=== PATIENT | female | born 1930 | race Caucasian/White ===

== ENCOUNTER 2017-10-03 02:12 | Inpatient (IN) | payer OTHER ==
[~2017-10-03] VITALS: Ht 162.6 cm; Wt 68.0 kg
[~2017-10-03 02:12] MED LIST: MIRALAX17 GM PO; VICODIN 5-3001 EACH PO
--- NOTE | 2017-10-03 02:53 | ED INFLUENZA/URI COMPLAINT ---
History of Present Illness General Chief Complaint: Upper Respiratory Sx/Fever Stated Complaint: COUGH AND CONGESTION Source: patient, family Exam Limitations: poor historian Vital Signs & Intake/Output Vital Signs & Intake/Output Vital Signs Date Time Temp Pulse Resp B/P B/P Pulse O2 O2 Flow FiO2 Mean Ox Delivery Rate 10/07 1427 98.5 68 20 142/62 93 Room Air 10/07 0939 66 135/64 10/07 0939 66 135/64 ED Intake and Output 10/08 0000 10/07 1200 Intake Total 800 270 Output Total Balance 800 270 Intake, IV 270 Intake, Oral 800 Number Bowel Movements Allergies Coded Allergies: NO KNOWN ALLERGIES (07/17/12) Reconcile Medications Amlodipine (Norvasc) 2.5 MG TABLET 1 TAB PO QPM BP (Reported) Amlodipine Besylate (Norvasc) 5 MG TABLET 1 TAB PO QAM HTN (Reported) Amoxicillin 875 MG TABLET 1 TAB PO BID pneumonia TAKE DIRECTED Atorvastatin Calcium (Lipitor) 10 MG TABLET 1 TAB PO DAILY HLD (Reported) Azithromycin (Zithromax) 500 MG TABLET 1 TAB PO DAILY pneumonia TAKE DIRECTED Levothyroxine Sodium (Synthroid) 50 MCG TABLET 1 TAB PO DAILY HYPOTHYROIDISM (Reported) Nadolol (Corgard) 20 MG TABLET 20 MG PO BID HTN (Reported) Rabeprazole Sodium (Aciphex) 20 MG TABLET.DR 1 TAB PO Wednesday GERD (Reported) Warfarin Sodium (Coumadin) 2 MG TABLET 1 TAB PO DAILY AFIB (Reported) Please hold for today and resume once INR is repeated. Dosed per INR Triage Note: 87YO FEMAEL TO TRIAGE W/CO CONGESTION. STATES SHE IS ON ANTIBIOTIC AND DECONGESTANT SINCE 09/30 BUT IS UNABLE TO BRING ANYTHING UP. Triage Nurses Notes Reviewed? yes HPI: Patient presents for evaluation of cough and chest congestion. The patient herself is deferring her history to her son because she states she "can't breathe" and "can't talk". According to the patient's son, she began having symptoms beginning at about Wednesday and subsequently saw her primary care physician who diagnosed her with a virus and suggested symptomatic care. She didn't saw him again on because of persistence of symptoms. She called him again on Wednesday and was prescribed cefuroxime. Patient states that she still feels congestion in the chest but isn't able to bring any phlegm up. She states she has had a low-grade fever but denies associated chest pain or leg swelling/pain. Past History Travel History Traveled to [place] past 21 day No Medical History Any Pertinent Medical History? see below for history Neurological: NONE EENT: NONE Cardiovascular: AFIB, hypertension Respiratory: NONE Gastrointestinal: NONE Hepatic: NONE Renal: NONE Musculoskeletal: SPINAL STENOSIS Psychiatric: NONE Endocrine: THYROID Blood Disorders: NONE Cancer(s): NONE Pneumonia Vaccine: 01/31/98 Influenza Vaccine: 02/05/13 Surgical History Surgical History: N Psychosocial History Who do you live with Family Services at Home None What is your primary language Kiswahili Tobacco Use: Never used Family History Hx Contributory? No Review of Systems Review of Systems Constitutional: Reports: see HPI. EENTM: Reports: no symptoms. Respiratory: Reports: see HPI. Cardiovascular: Reports: no symptoms. GI: Reports: no symptoms. Genitourinary: Reports: no symptoms. Musculoskeletal: Reports: no symptoms. Skin: Reports: no symptoms. Neurological/Psychological: Reports: no symptoms. Hematologic/Endocrine: Reports: no symptoms. Immunologic/Allergic: Reports: no symptoms. All Other Systems: Reviewed and Negative Physical Exam Physical Exam Ears, Nose, Throat: SEE BELOW Comments: Gen.: Well-nourished, well-developed, no acute respiratory distress. Head: Normocephalic, atraumatic. Eyes: Normal inspection bilaterally Ears: Normal inspection bilaterally Nose: Normal inspection Throat/mouth : Moist mucosa, no oropharyngeal erythema or exudates Neck: Supple, full range of motion, no goiter, no stridor Heart: Regular rate and rhythm, no murmurs rubs or gallops Lungs: Clear to auscultation bilaterally with normal air entry Chest: Nontender Back: Normal range of motion Abdomen: Soft, nontender, nondistended, normal bowel sounds Extremities: Normal range of motion grossly, equal radial pulses, no cyanosis clubbing or edema Neurologic: Cranial nerves grossly intact, speech is clear Skin: warm and dry Psychiatric: Calm, cooperative, no apparent delusions or hallucinations Core Measures Sepsis Present: No Sepsis Focused Exam Completed? No Progress Differential Diagnosis: influenza, pneumonia, CHF,COPD,EFFUSION,SEPSIS Plan of Care: Orders Procedure Date/time Status Discharge Patient 10/07 UNK Active Diagnostic Imaging: Discussed w/RAD: Radiology Read. CXR Impression: PATIENT: CANDELARIA ALTMAN PRESENT AGE: 87 PATIENT ACCOUNT NO: [id number] : 31 LOCATION: [facility] ORDERING PHYSICIAN: Rom Lawrence MD SERVICE DATE: 10/03/17 EXAM TYPE: RAD - XRY-CHEST XRAY, TWO VIEWS EXAMINATION: XR CHEST CLINICAL INFORMATION: Cough, congestion COMPARISON: 08/10/2016 TECHNIQUE: 2 views of the chest were obtained. FINDINGS: Lung volumes are symmetric. There is mild patchy opacity in the mid to basilar right lung laterally. The left lung appears clear. No evidence of pneumothorax, pleural effusion, or pulmonary edema. The cardiomediastinal contour is unremarkable. Osteopenia is noted. IMPRESSION: Mild patchy opacity in the mid to basilar right lung, suggesting developing pneumonia in the proper clinical setting. Radiographic followup after treatment/resolution of symptoms is recommended. DICTATED BY: Joby Rothman MD DATE/TIME DICTATED:10/03/17310 OFFICE ADMINISTRATION:LIILAM DATE/TIME TRANSCRIBED:10/03/17310 CONFIDENTIAL, DO NOT COPY WITHOUT APPROPRIATE AUTHORIZATION. <Electronically signed in Other Vendor System> SIGNED BY: Joby Rothman MD 10/03/17317 Initial ED EKG: none Comments: 10/03/2017 4:16:35 AM I have updated Candelaria and her son on test results. I will order IV antibiotics for her pneumonia. She repeatedly complains of feeling phlegm in the throat that she can't "bring up". I will order a nebulizer treatment to see if we can't loosen up the secretions somewhat. Departure Departure Disposition: STILL A PATIENT Condition: Stable Clinical Impression Primary Impression: Pneumonia Qualifiers: Pneumonia type: due to unspecified organism Laterality: right Lung location: middle lobe of lung Qualified Code: J18.1 - Lobar pneumonia, unspecified organism Referrals: Nikhil MATAMOROS,Aaron Holloway (PCP/Family) Departure Forms: Customer Survey General Discharge Information Prescriptions: Current Visit Scripts Azithromycin (Zithromax) 1 TAB PO DAILY #2 TAB TAKE DIRECTED Amoxicillin 1 TAB PO BID #4 TAB TAKE DIRECTED Admission Note Spoke With: Evens Horton MD Documentation of Exam: Documentation of any treatments & extenuating circumstances including Concerns Regarding Discharge (functional status, medication knowledge or non-compliance, living conditions, etc.) that warrant an admission rather than observation: Patient presents complaining of difficulty breathing secondary to phlegm production. She is currently taking an antibiotic prescribed by her primary care physician for clinical impression of bronchitis. Patient's chest x-ray confirms a right sided pneumonia. Given this patient's advanced age, elevated white blood cell count and clinical signs and symptoms I feel she requires hospitalization for more aggressive management with IV antibiotics. I feel she would likely return in worse clinical condition if continued outpatient management were attempted. While in the hospital a patient should have serial chest x-rays to monitor for clearing of her pneumonia. Oxygen should be supplemented if necessary. Patient does not respond to initial treatment then infectious disease or pulmonary consultation should be considered. Considering this patient's advanced age and medical comorbidities, her treatment may very well be prolonged and complicated. Given the above I feel the patient will require multiple day hospitalization. 10/03/17 0308: Anion Gap 9, Estimated GFR > 60, BUN/Creatinine Ratio 15.0, Glucose 109 H, Lactic Acid Pending, Calcium 8.4, Troponin I < 0.01, [id number] Pept 1850 H, Vitamin B12 Pending, Folate Pending, PT 24.7 H, INR 2.25 H, CBC w Diff NO MAN DIFF REQ, RBC 2.40 L, MCV 104.0 H, MCH 35.9 H, MCHC 34.5, RDW 14.7 H, MPV 7.8, Gran % 79.9 H, Lymphocytes % 9.2 L, Monocytes % 10.3 H, Eosinophils % 0.5, Basophils % 0.1, Absolute Granulocytes 8.8 H, Absolute Lymphocytes 1.0 L, Absolute Monocytes 1.1 H, Absolute Eosinophils 0.1, Absolute Basophils 0 Microbiology 10/03 0550 LOWER RESP: Respiratory Culture - COLB 10/03 0450 LOWER RESP: Gram Stain - COLB 10/03 450 BLOOD: Blood Culture - CAN Cancelled: DUPLICATE 10/03 450 BLOOD: Blood Culture - CAN Cancelled: DUPLICATE 10/04 439 BLOOD: Blood Culture - RECD 10/03 429 BLOOD: Blood Culture - RECD Diagnostic Imaging: Discussed w/RAD: Radiology Read. CXR Impression: PATIENT: CANDELARIA ALTMAN PRESENT AGE: 87 PATIENT ACCOUNT NO: [id number] : 31 LOCATION: [facility] ORDERING PHYSICIAN: Rom Lawrence MD SERVICE DATE: 10/03/17 EXAM TYPE: RAD - XRY-CHEST XRAY, TWO VIEWS EXAMINATION: XR CHEST CLINICAL INFORMATION: Cough, congestion COMPARISON: 08/10/2016 TECHNIQUE: 2 views of the chest were obtained. FINDINGS: Lung volumes are symmetric. There is mild patchy opacity in the mid to basilar right lung laterally. The left lung appears clear. No evidence of pneumothorax, pleural effusion, or pulmonary edema. The cardiomediastinal contour is unremarkable. Osteopenia is noted. IMPRESSION: Mild patchy opacity in the mid to basilar right lung, suggesting developing pneumonia in the proper clinical setting. Radiographic followup after treatment/resolution of symptoms is recommended. DICTATED BY: Joby Rothman MD DATE/TIME DICTATED:10/03/17310 OFFICE ADMINISTRATION:LILIAM DATE/TIME TRANSCRIBED:10/03/17310 CONFIDENTIAL, DO NOT COPY WITHOUT APPROPRIATE AUTHORIZATION. <Electronically signed in Other Vendor System> SIGNED BY: Joby Rothman MD 10/03/17317 Comments: 10/03/2017 4:16:35 AM I have updated Candelaria and her son on test results. I will order IV antibiotics for her pneumonia. She repeatedly complains of feeling phlegm in the throat that she can't "bring up". I will order a nebulizer treatment to see if we can't loosen up the secretions somewhat. Departure Departure Disposition: STILL A PATIENT Condition: Stable Clinical Impression Primary Impression: Pneumonia Qualifiers: Pneumonia type: due to unspecified organism Laterality: right Lung location: middle lobe of lung Qualified Code: J18.1 - Lobar pneumonia, unspecified organism Referrals: Nikhil MATAMOROS,Aaron Holloway (PCP/Family) Departure Forms: Customer Survey General Discharge Information Admission Note Spoke With: Evens Horton MD Documentation of Exam: Documentation of any treatments & extenuating circumstances including Concerns Regarding Discharge (functional status, medication knowledge or non-compliance, living conditions, etc.) that warrant an admission rather than observation: Patient presents complaining of difficulty breathing secondary to phlegm production. She is currently taking an antibiotic prescribed by her primary care physician for clinical impression of bronchitis. Patient's chest x-ray confirms a right sided pneumonia. Given this patient's advanced age, elevated white blood cell count and clinical signs and symptoms I feel she requires hospitalization for more aggressive management with IV antibiotics. I feel she would likely return in worse clinical condition if continued outpatient management were attempted. While in the hospital a patient should have serial chest x-rays to monitor for clearing of her pneumonia. Oxygen should be supplemented if necessary. Patient does not respond to initial treatment then infectious disease or pulmonary consultation should be considered. Considering this patient's advanced age and medical comorbidities, her treatment may very well be prolonged and complicated. Given the above I feel the patient will require multiple day hospitalization.
--- NOTE | 2017-10-03 03:18 | RADIOLOGY REPORT ---
EXAMINATION: XR CHEST CLINICAL INFORMATION: Cough, congestion COMPARISON: 08/10/2016 TECHNIQUE: 2 views of the chest were obtained. FINDINGS: Lung volumes are symmetric. There is mild patchy opacity in the mid to basilar right lung laterally. The left lung appears clear. No evidence of pneumothorax, pleural effusion, or pulmonary edema. The cardiomediastinal contour is unremarkable. Osteopenia is noted. IMPRESSION: Mild patchy opacity in the mid to basilar right lung, suggesting developing pneumonia in the proper clinical setting. Radiographic followup after treatment/resolution of symptoms is recommended.
[2017-10-03 03:22] LABS: ABSOLUTE BASOPHIL COUNT 0 /CUMM (0.0-0.2); ABSOLUTE EOSINOPHIL COUNT 0.1 /CUMM (0.0-0.7); ABSOLUTE GRANULOCYTE CT 8.8 /CUMM (1.4-6.5); ABSOLUTE MONOCYTE COUNT 1.1 /CUMM (0.10-0.60); BASOPHIL % 0.1 % (0.0-2.0); EOSINOPHIL % 0.5 % (0-5); GRANULOCYTE % 79.9 % (42.2-75.2); MEAN CORPUSCULAR HGB 35.9 PG (27.0-31.0); MEAN CORPUSCULAR HGB CONC 34.5 G/DL (33.0-37.0); MEAN PLATELET VOLUME 7.8 FL (7.4-10.4); PLATELET COUNT 263 /CUMM (130-400); RBC DISTRIBUTION WIDTH 14.7 % (11.5-14.5)
[2017-10-03 03:46] LABS: WHITE BLOOD CELL COUNT 11.1 /CUMM (4.8-10.8)
--- NOTE | 2017-10-03 05:14 | History & Physical ---
[place] MATAMOROS,Edgar 10/03/17 0513: General Information and HPI History of Present Illness: Ms. Avila is an 87-year-old female with past medical history of atrial fibrillation on warfarin, hypertension, spinal stenosis, hypothyroidism, hyperlipidemia, GERD who presents with congestion. Patient has a cough for the past week and the last few days it has become productive. She went to her primary care doctor, Dr. Poole, and received cough medication. She then received cefuroxime on Wednesday because of worsening symptoms. She took 2 doses. She then decided to come into the emergency room because her congestion was worsening and she could not breathe because of it. She further describes shortness of breath, tearing, sore throat, and fatigue. She denies any headache , chest pain, abdominal pain, nausea, vomiting, diarrhea, dysuria, rash, or sick contacts. Allergies/Medications Allergies: Coded Allergies: NO KNOWN ALLERGIES (07/17/12) Home Med list Amlodipine (Norvasc) 2.5 MG TABLET 1 TAB PO QPM BP (Reported) Amlodipine Besylate (Norvasc) 5 MG TABLET 1 TAB PO QAM HTN (Reported) Atorvastatin Calcium (Lipitor) 10 MG TABLET 1 TAB PO DAILY HLD (Reported) Levothyroxine Sodium (Synthroid) 50 MCG TABLET 1 TAB PO DAILY HYPOTHYROIDISM (Reported) Nadolol (Corgard) 20 MG TABLET 20 MG PO BID HTN (Reported) Rabeprazole Sodium (Aciphex) 20 MG TABLET.DR 1 TAB PO Wednesday GERD (Reported) Warfarin Sodium (Coumadin) 2 MG TABLET 1 TAB PO DAILY AFIB (Reported) Dosed per INR Past History Travel History Traveled to [place] past 21 day No Medical History Neurological: NONE EENT: NONE Cardiovascular: AFIB, hypertension Respiratory: NONE Gastrointestinal: NONE Hepatic: NONE Renal: NONE Musculoskeletal: SPINAL STENOSIS Psychiatric: NONE Endocrine: THYROID Blood Disorders: NONE Cancer(s): NONE Pneumonia Vaccine: 01/31/98 Influenza Vaccine: 02/05/13 Surgical History Surgical History: N Past Family/Social History Psychosocial History Services at Home: None Review of Systems Review of Systems Constitutional: Reports: see HPI. EENTM: Reports: no symptoms. Cardiovascular: Reports: no symptoms. Respiratory: Reports: see HPI. GI: Reports: no symptoms. Genitourinary: Reports: no symptoms. Musculoskeletal: Reports: no symptoms. Skin: Reports: no symptoms. Neurological/Psychological: Reports: no symptoms. Hematologic/Endocrine: Reports: no symptoms. Immunologic/Allergic: Reports: no symptoms. All Other Systems: Reviewed and Negative Exam & Diagnostic Data Last 24 Hrs of Vital Signs/I&O Vital Signs Date Time Temp Pulse Resp B/P B/P Pulse O2 O2 Flow FiO2 Mean Ox Delivery Rate 10/03 0438 95 10/03 0218 98.6 75 28 143/78 94 Room Air Room Air Intake & Output 10/03 0800 10/03 0000 10/02 1600 Intake Total 0 Output Total Balance 0 Intake, Oral 0 Patient 68.039 kg Weight Physical Exam General Appearance Alert, Oriented X3, Cooperative, No Acute Distress Skin No Rashes Sepsis Skin Exam (color): Normal for Ethnicity HEENT Atraumatic, PERRLA, EOMI Cardiovascular Regular Rate, Normal S1, Normal S2 Lungs mild crackles Abdomen Normal Bowel Sounds, Soft, No Tenderness Neurological Normal Speech Extremities No Edema, Normal Pulses, No Tenderness/Swelling Sepsis Peripheral Pulse Location: Radial Sepsis Peripheral Pulse Exam: Normal Sepsis Cap Refill Exam: <2 Sec Last 24 Hrs of Labs/Parish: Laboratory Tests 10/03/17 0308: Anion Gap 9, Estimated GFR > 60, BUN/Creatinine Ratio 15.0, Glucose 109 H, Calcium 8.4, Troponin I < 0.01, [id number] Pept 1850 H, PT 24.7 H, INR 2.25 H, CBC w Diff NO MAN DIFF REQ, RBC 2.40 L, MCV 104.0 H, MCH 35.9 H, MCHC 34.5, RDW 14.7 H, MPV 7.8, Gran % 79.9 H, Lymphocytes % 9.2 L, Monocytes % 10.3 H, Eosinophils % 0.5, Basophils % 0.1, Absolute Granulocytes 8.8 H, Absolute Lymphocytes 1.0 L, Absolute Monocytes 1.1 H, Absolute Eosinophils 0.1 , Absolute Basophils 0 Microbiology 10/03 450 BLOOD: Blood Culture - CAN Cancelled: DUPLICATE 10/03 450 BLOOD: Blood Culture - CAN Cancelled: DUPLICATE 10/04 439 BLOOD: Blood Culture - RECD 10/03 429 BLOOD: Blood Culture - RECD Assessment/Plan Assessment: Ms. Avila is an 87-year-old female with past medical history of atrial fibrillation on warfarin, hypertension, spinal stenosis, hypothyroidism, hyperlipidemia, GERD who presents with congestion. On presentation, vital signs were T 98.6, HR 75, RR 28, BP 143/78, saturating 4% room air. Labs are significant for white blood cell count 11.1, globin 8.6, MCV 104.0, glucose 101, troponin less than 0.01, BNP 1850. Chest x-ray revealed mild patchy opacity in the mid to basilar right lung suggesting pneumonia. She will be admitted to general medicine and treated for the following problems: 1. Sepsis secondary to community-acquired pneumonia 2. Macrocytic anemia #Community-acquired pneumonia: Patient presents with signs and symptoms of pneumonia. She has tachypnea and leukocytosis, meeting 2/4 SIRS criteria qualifying for sepsis. Quick SOFA score was 1 at admission, CURB-65 score 1. -Ceftriaxone and azithromycin -Guaifenesin -Lactic acid -Respiratory culture -Urinary antigens #Macrocytic anemia: Unclear etiology. Potentially vitamin deficient. -B12 and folate #Chronic medical problems: -INR daily, dose warfarin -Continue other home medications DVT prophylaxis with warfarin Heart healthy diet Full code As Ranked By This Provider Problem List: 1. Community acquired pneumonia Core Measures/Misc (01/17) Acute Coronary Syndrome ACS Diagnosis: No Congestive Heart Failure Congestive Heart Failure Diagnosis No Cerebrovascular Accident CVA/TIA Diagnosis: No VTE (View Protocol) VTE Risk Factors Age>40 No Mechanical VTE Prophylaxis d/t N/A MechProphylax Ordered No VTE Pharm Prophylaxis d/t NA PharmProphylax ordered Sepsis (View protocol) Sepsis Present: Yes If YES complete Sepsis Event Note If YES complete Sepsis Event Note Evens Horton MD 10/03/17 0611: Core Measures/Misc (01/17) Sepsis (View protocol) If YES complete Sepsis Event Note If YES complete Sepsis Event Note Attending MD Review Statement Attending Statement Attending MD Statement: examined this patient, discuss w/resident/PA/SOLAR ELECTRIC PRACTITIONER, agreed w/resident/PA/SOLAR ELECTRIC PRACTITIONER, discussed with family, discussed with nursing Attending Assessment/Plan: Ms. Avila is an 87-year-old active female with past medical history of atrial fibrillation on warfarin, hypertension, spinal stenosis, hypothyroidism, hyperlipidemia, GERD who presents with congestion. Comes in with worsening symptoms after conservative management by PCP for ?viral URI. CXR shows infiltrates suggestive of pneumonia. Treating as community acquired pneumonia. FU on INR levels. Needs chest physical therapy and inhalers to relieve congestion. Also on expectorants. Lalo Pompa 10/03/17 0613: Core Measures/Misc (01/17) Sepsis (View protocol) If YES complete Sepsis Event Note If YES complete Sepsis Event Note Resident Review Statement Resident Statement: examined this patient, discussed with cad intern, agreed with cad intern, discussed with family, reviewed EMR data (avail), reviewed images, amended to note Other Findings: Mrs. Avila is an 87 years old lady with past medical history of hypertension hyperlipidemia and atrial fibrillation on Coumadin who is presenting with one- week history of cough for which she visited her primary care physician initially given cough suppression medication but then went back on Wednesday and be started on antibiotic but continued to have phlegm predominantly blocking her breathing channels for which she decided to come to the ER today. Patient has been having low-grade fever her highest recorded temp 98.4 she denies any sick contacts she is coughing but not able to expectorate. She denies any chest pain, shortness of breath, dizziness, lightheadedness, nausea or vomiting. She has no sick contacts. She reports to has been stressed lately. Her fell and had a brain hemorrage admitted to [facility] for 5 weeks currently at a [facility] in [facility]. Vital signs on arrival afebrile 98.6, heart rate of 75 respiration 28 blood pressure 143/78 and saturating 98% on room air Physical examination: Seated comfortably on the bed not in acute distress alert and oriented to time place and person very plesant with the son by bedside. Chest: Bilateral bronchial breath sounds more prominent in the bases no crackles appreciated CVS: Regular rate and rhythm normal S1-S2 no murmurs Abdomen: Obese abdomen moving with respiration no palpable masses Extremities: No cyanosis edema or clubbing Labs: Mild leukocytosis of 11,100 with 79.9% granulocytes anemia with H&H H&H 8.6 and 25 with MCV of 104, increased proBNP of 1850 with therapeutic INR of 2.25 CXR: Mild patchy opacities in the immediate tube bacillar right lung Assessment and plan 87 years old presenting with cough congestion low-grade fever and on presentation found to have leukocytosis with left shift and x-ray evidence of pneumonia. The patient reports improvement in respiratory symptoms after nebulization. She is on Coumadin for A. fib and is within therapeutic range. Community-acquired pneumonia Atrial fibrillation on Coumadin Hypertension Hyperlipidemia Admitted the patient to general medicine floor Vitals every shift IV ceftriaxone 1 g daily and IV azithromycin 500 mg daily Total respiratory care Daily INR and dose Coumadin to maintain therapeutic range Continue blood pressure medication nadolol 20 mg daily and Norvasc 5 mg daily Hypothyroidism continue with Synthyroid 50 g daily, check TSH and free T4 Patient is full code Coumadin for DVT prophylaxis Hypothyroidism continue with Synthyroid 50 g daily, check TSH and free T4 Patient is full code Coumadin for DVT prophylaxis
[2017-10-03 05:25] LABS: PT 24.7 SEC (9.4-12.5)
[2017-10-03] MEDS ORDERED: SYNTHROID50 MCG PO (05:47)
[2017-10-03] MEDS ORDERED: LIPITOR10 M1 PO (05:47)
[2017-10-03] MEDS ORDERED: NORVASC5 M1 PO (05:48)
[2017-10-03] MEDS ORDERED: CORGARD20 M1 PO (05:49)
[2017-10-03] MEDS ORDERED: COUMADIN2 M1 PO (05:51)
[2017-10-03] MEDS ORDERED: ACIPHEX20 M1 PO (06:10)
--- NOTE | 2017-10-03 12:15 | PN- Att Addend ---
Attending Addendum Attending Brief Note Patient seen and examined. This is an 87-year-old female with past medical history of atrial fibrillation on Coumadin, chronic macrocytic anemia is here with a community-acquired pneumonia having failed outpatient oral treatment by her PCP Dr. Tejeda. She had a white count of 11,000, cough with sputum and a right basal opacity on chest x-ray. We are treating her with IV antibiotics. Dosing the Coumadin to keep the INR therapeutic and will closely follow on the results. She has this chronic macrocytic anemia, she's even had a bone marrow biopsy done in the past and says she is to follow that the cancer center. Will need collateral information about the same.
--- NOTE | 2017-10-03 12:15 | Admission Certification ---
Admission Certification Certification Statement - As attending physician, I certify that at the time of - admission, based on clinical presentation, severity of - symptoms, need for further diagnostic testing and - therapeutic interventions, and risk of adverse outcomes - without in-hospital treatment, in my clinical assessment, - this patient requires an acute hospital stay for a minimum - of two nights or longer. I have also considered psychsocial - factors such as support system, advanced age, financial - issues, cognitive issues, and failed out-patient treatments, - past re-admission history, safety of patient, and lack of - compliance as applicable. Specific rationale supporting this admission is: Community acquired pneumonia having failed outpatient oral antibiotics.
[2017-10-03] MEDS ORDERED: NORVASC2.5 M1 PO (13:14)
[2017-10-03 16:54] VITALS: BP 120/62
[2017-10-03 22:00] VITALS: BP 130/51
[2017-10-04 07:00] VITALS: BP 135/58
--- NOTE | 2017-10-04 08:17 | PN- Housestaff ---
See Addendum Subjective Follow-up For: communtiy acquired pnuemonia Complaints: no complaints Subjective: i have seen and examined the patient today morning, she seems ot be doing good, no new complaints. Review of Systems Constitutional: Reports: see HPI. Objective Last 24 Hrs of Vital Signs/I&O Vital Signs Date Time Temp Pulse Resp B/P B/P Pulse O2 O2 Flow FiO2 Mean Ox Delivery Rate 10/04 0435 Room Air 10/04 0000 Room Air 10/03 2200 98.4 68 20 130/51 93 Room Air 10/03 1933 93 Room Air 10/03 1929 Room Air 10/03 1814 92 138/78 10/03 1654 99.9 92 20 120/62 94 Room Air 10/03 1634 94 Room Air 10/03 1609 94 10/03 1546 99.0 Intake & Output 10/04 1600 10/04 0800 10/04 0000 Intake Total Output Total Balance Patient 68.039 kg Weight Weight Reported by Patient Measurement Method Physical Exam General Appearance: Alert, Oriented X3 Skin: No Rashes, No Breakdown, No Significant Lesion HEENT: Atraumatic, PERRLA, EOMI Cardiovascular: Normal S1, Normal S2, No Murmurs Lungs: Clear to Auscultation, Normal Air Movement Abdomen: Normal Bowel Sounds, Soft, No Tenderness Extremities: No Clubbing, No Cyanosis, No Edema, Normal Pulses Current Medications: Current Medications Sig/Yanni Start time Last Medication Dose Route Stop Time Status Admin Albuterol Sulfate 3 ML Q4P PRN 10/03 1945 AC 10/04 INH 0434 Amlodipine Besylate 2.5 MG AT BEDTIME 10/03 2100 AC PO Amlodipine Besylate 5 MG DAILY 10/03 0900 AC PO Atorvastatin Calcium 10 MG MoWeFr 10/04 1252 AC PO Atorvastatin Calcium 10 MG 1700 10/03 1700 DC PO Azithromycin 500 MG 30 10/05 0630 DC Sodium Chloride 250 ML IV Azithromycin 500 MG Q24H 10/04 09 DC Sodium Chloride 250 ML IV Azithromycin 500 MG 30 10/04 0700 AC 10/04 Sodium Chloride 250 ML IV 0726 Ceftriaxone Sodium 1,000 MG 30 10/05 0630 DC IV Ceftriaxone Sodium 1,000 MG DAILY 10/04 09 DC IV Ceftriaxone Sodium 1,000 MG 30 10/04 0655 AC 10/04 IV 0727 Guaifenesin 10 ML Q6-PRN PRN 10/03 0545 AC 10/04 PO 0446 Insulin Aspart 2 UNITS .STK-MED ONE 10/03 2024 DC SC 10/03 2025 Levothyroxine Sodium 0.05 MG ONCE ONE 10/03 1730 DC 10/03 PO 10/03 1731 1717 Levothyroxine Sodium 0.05 MG DAILY 10/03 0900 AC PO Nadolol 20 MG BID 10/03 0900 AC 10/03 PO 1814 Omeprazole 20 MG DAILY AC 10/03 0700 DC PO Rabeprazole Sodium 20 MG MoWeFr@0700 10/04 0700 AC PO Sodium Chloride 1,000 ML ONCE ONE 10/03 0430 DC 10/03 IV 10/03 1109 0445 Warfarin Sodium 1 MG COUMADIN 1700 ONE 10/03 1800 DC 10/03 PO 10/03 1801 1819 Warfarin Sodium 2 MG COUMADIN 1700 ONE 10/03 1700 CAN PO 10/03 1701 Last 24 Hrs of Lab/Parish Results Last 24 Hrs of Labs/Mics: Laboratory Tests 10/04/17 0801: Sodium Pending, Potassium Pending, Chloride Pending, Carbon Dioxide Pending, Anion Gap Pending, BUN Pending, Creatinine Pending, BUN/Creatinine Ratio Pending , PT Pending, INR Pending, CBC w Diff Pending, WBC Pending, RBC Pending, Hgb Pending, Hct Pending, MCV Pending, MCH Pending, MCHC Pending, RDW Pending, Plt Count Pending, MPV Pending 10/03/17 0856: Lactic Acid 0.8 Lines/Diet/Fluids Restraints: none Assessment/Plan Assessment: Ms. Avila is an 87-year-old female with past medical history of atrial fibrillation on warfarin, hypertension, spinal stenosis, hypothyroidism, hyperlipidemia, GERD who presents with congestion. On presentation, vital signs were T 98.6, HR 75, RR 28, BP 143/78, saturating 4% room air. Labs are significant for white blood cell count 11.1, globin 8.6, MCV 104.0, glucose 101, troponin less than 0.01, BNP 1850. Chest x-ray revealed mild patchy opacity in the mid to basilar right lung suggesting pneumonia. Problem list alongwith Assesment and plan #Community-acquired pneumonia: Patient presents with signs and symptoms of pneumonia. She has tachypnea and leukocytosis, meeting 2/4 SIRS criteria qualifying for sepsis. Quick SOFA score was 1 at admission, CURB-65 score 1. -Ct Ceftriaxone and azithromycin -Ct Guaifenesin -Ct to follow Respiratory cultures, blood cultures. #Macrocytic anemia: Unclear etiology. Potentially vitamin deficient. B12 and folate with normal limit unclear reason of macrocytic anemia #Atrial fibrillation on Coumadin :rate controlled, ct daily INR and dose Coumadin to maintain therapeutic range #Hypertension : ct norvasc and nadolol 20 mg daily. #Hyperlipidemia : ct statin #Hypothyroidism : continue with Synthyroid 50 g daily, check TSH and free T4 DVT prophylaxis with warfarin Heart healthy diet Full code Problem List: 1. Community acquired pneumonia Pain Ratin Pain Location: .. Pain Goal: Remain pain free Pain Plan: tylenol Tomorrow's Labs & Rationales: ..
[2017-10-04 08:32] LABS: PT 27.8 SEC (9.4-12.5)
[2017-10-04 08:37] LABS: ABSOLUTE BASOPHIL COUNT 0.1 /CUMM (0.0-0.2); ABSOLUTE EOSINOPHIL COUNT 0.1 /CUMM (0.0-0.7); ABSOLUTE LYMPH COUNT 1.1 /CUMM (1.2-3.4); ABSOLUTE MONOCYTE COUNT 1.1 /CUMM (0.10-0.60); BASOPHIL % 0.5 % (0.0-2.0); EOSINOPHIL % 0.6 % (0-5); GRANULOCYTE % 78.3 % (42.2-75.2); HEMATOCRIT 23.7 % (37-47); MEAN CORPUSCULAR HGB 35.7 PG (27.0-31.0); MEAN CORPUSCULAR HGB CONC 34.1 G/DL (33.0-37.0); MEAN CORPUSCULAR VOLUME 104.6 FL (81.0-99.0); MEAN PLATELET VOLUME 8.1 FL (7.4-10.4); PLATELET COUNT 262 /CUMM (130-400); RBC DISTRIBUTION WIDTH 15.4 % (11.5-14.5); RED BLOOD CELL CT 2.27 /CUMM (4.20-5.40); WHITE BLOOD CELL COUNT 10.2 /CUMM (4.8-10.8)
[2017-10-04 15:26] VITALS: BP 108/62
[2017-10-04 20:00] VITALS: BP 133/59
[2017-10-04 22:36] VITALS: BP 133/59
[2017-10-05 06:58] VITALS: BP 130/58
--- NOTE | 2017-10-05 08:06 | PN- Housestaff ---
Subjective Follow-up For: -CAP Complaints: no complaints Subjective: I have examined and seen the patient today morning. no new complaints, doesnt want to have mucinex ,therefore will d/c it. Review of Systems Constitutional: Reports: see HPI. Objective Last 24 Hrs of Vital Signs/I&O Vital Signs Date Time Temp Pulse Resp B/P B/P Pulse O2 O2 Flow FiO2 Mean Ox Delivery Rate 10/05 1442 98.3 71 18 136/52 97 Room Air 10/05 1417 95 Room Air / 0816 72 136/58 / 0815 72 136/58 / 0658 98.5 72 18 130/58 93 /05 0000 Room Air 10/04 2236 98.7 76 20 133/59 96 Room Air 10/04 2024 76 133/59 10/04 2021 76 133/59 10/05 2019 93 Room Air /1999 98.7 76 20 133/59 96 Room Air Intake & Output 10/05 1600 10/05 0800 10/05 0000 Intake Total 920 400 840 Output Total Balance 920 400 840 Intake, IV 300 280 Intake, Oral 620 120 840 Number 0 Bowel Movements Physical Exam General Appearance: Alert, Oriented X3, Cooperative, No Acute Distress Skin: No Rashes, No Breakdown Cardiovascular: Normal S1, Normal S2, No Murmurs Lungs: Clear to Auscultation, Normal Air Movement Abdomen: Normal Bowel Sounds, Soft, No Tenderness Extremities: No Clubbing, No Cyanosis Vascular: Normal Pulses Current Medications: Current Medications Sig/Yanni Start time Last Medication Dose Route Stop Time Status Admin Albuterol Sulfate 3 ML Q4P PRN 10/03 194 AC 10/04 INH 1406 Amlodipine Besylate 2.5 MG AT BEDTIME 10/03 2099 AC PO Amlodipine Besylate 5 MG DAILY 10/03 899 AC 10/05 PO 0815 Atorvastatin Calcium 10 MG MoWeFr@2100 10/04 2100 AC 10/04 PO 2026 Azithromycin 500 MG 10/0530 DC Sodium Chloride 250 ML IV Azithromycin 500 MG 30 10/04 0700 AC 10/05 Sodium Chloride 250 ML IV 0603 Ceftriaxone Sodium 1,000 MG 0630 10/05 0630 DC IV Ceftriaxone Sodium 1,000 MG 30 10/04 0655 AC 10/05 IV 0602 Guaifenesin 600 MG Q12 10/04 0957 AC 10/05 PO 0816 Guaifenesin 10 ML Q6-PRN PRN 10/03 0545 AC 10/04 PO 0446 Levothyroxine Sodium 0.05 MG 10/05 0600 AC 10/05 PO 0602 Levothyroxine Sodium 0.05 MG DAILY 10/03 0900 DC 10/04 PO 0858 Nadolol 20 MG BID 10/03 0900 AC 10/05 PO 0816 Rabeprazole Sodium 20 MG MoWeFr@0700 10/04 0700 AC PO Warfarin Sodium 1 MG COUMADIN 1700 ONE 10/04 1700 DC 10/04 PO 10/04 1701 1804 Last 24 Hrs of Lab/Parish Results Last 24 Hrs of Labs/Mics: Laboratory Tests 10/05/17 0720: PT 31.5 H, INR 2.86 H Microbiology 10/05 1042 LOWER RESP: Respiratory Culture - RES 10/05 104 LOWER RESP: Gram Stain - RES Lines/Diet/Fluids Restraints: none Assessment/Plan Assessment: Ms. Avila is an 87-year-old female with past medical history of atrial fibrillation on warfarin, hypertension, spinal stenosis, hypothyroidism, hyperlipidemia, GERD who presents with congestion. On presentation, vital signs were T 98.6, HR 75, RR 28, BP 143/78, saturating 4% room air. Labs are significant for white blood cell count 11.1, globin 8.6, MCV 104.0, glucose 101, troponin less than 0.01, BNP 1850. Chest x-ray revealed mild patchy opacity in the mid to basilar right lung suggesting pneumonia. Problem list alongwith Assesment and plan #Community-acquired pneumonia: Patient presents with signs and symptoms of pneumonia. on presentation she has tachypnea and leukocytosis, meeting 2/4 SIRS criteria qualifying for sepsis. Quick SOFA score was 1 at admission, CURB-65 score 1. -Ct Ceftriaxone and azithromycin - day 2 today, will transition to po tmrw and plan discharge. -Ct Guaifenesin -Ct to follow Respiratory cultures, blood cultures show no growth after day one. #Macrocytic anemia: Unclear etiology. Potentially vitamin deficient. B12 and folate with normal limit unclear reason of macrocytic anemia #Atrial fibrillation on Coumadin : rate controlled, ct daily INR and dose Coumadin to maintain therapeutic range #Hypertension : ct norvasc and nadolol 20 mg daily. #Hyperlipidemia : ct statin #Hypothyroidism : continue with Synthyroid 50 g daily, check TSH and free T4 FC heart healthy diet Coumadin Problem List: 1. Community acquired pneumonia Pain Ratin Pain Location: .. Pain Goal: Remain pain free Pain Plan: .. Tomorrow's Labs & Rationales: .. Discharge Plan Discharge Disposition: home Stable for Discharge? No Anticipated Discharge (Day): tomorrow If Discharged Today/In 24 Hrs: DC summary done, CMR done
[2017-10-05 08:19] LABS: PT 31.5 SEC (9.4-12.5)
[2017-10-05 14:42] VITALS: BP 136/52
--- NOTE | 2017-10-05 16:24 | Discharge Summary ---
See Addendum Visit Information Visit Dates Admission Date: 10/03/17 Discharge Date: 10/07/17 Hospital Course Course Attending Physician: Celso Venegas MD Primary Care Physician: Aaron Tejeda MD Hospital Course: Mrs Avila is an 87-year-old female with past medical history of atrial fibrillation on warfarin, hypertension, spinal stenosis, hypothyroidism, hyperlipidemia, GERD who presented with congestion and cough that was productive in nature one week prior to presentation. She was seen by her primary care doctor Dr. dent, received some cough medication however the condition continued to worsen and was now associated with sore throat, fatigue and shortness of breath. Chest x-ray showed mild patchy opacity in the mid to basilar right lung, suggesting developing pneumonia Was admitted to general medicine floor for treatment of following problems. Community-acquired pneumonia. She presented with signs and symptoms of productive cough, that failed outpatient treatment and was found to have an evolving consolidation in the right mid to basilar lung, was started on IV ceftriaxone and azithromycin. she was discharged on Amoxicillin and Azithromycin. Cough was treated with guanifensin. Respiratory cultures growing yeast which was likely contaminant, prelimin blood cultures showed no growth. Macrocytic anemia. Presentation she was found to be anemic however MCV was 104. B12 and folate were found to be within normal limit, at this admission the reason for microcytic anemia wasn't very clear. Atrial fibrillation on Coumadin. Rate was very well controlled, daily INR checks were done and Coumadin was dosed based on INR daily. Subsequently Her INR trended up and on admission her INR was 3.79. She was advised to hold her coumadin on that day. Appointment was made for her on 10/07/2017 11:45 am with Hannah at [facility]madin clinic. Norvasc and nadolol were continued for hypertension, statin was continued for hyperlipidemia and Synthroid 50 g was continued for hypothyroidism. TSH and T4 will be checked and were found to be within normal limit DVT prophylaxis with given with warfarin. heart healthy diet. full code Allergies: Coded Allergies: NO KNOWN ALLERGIES (07/17/12) Significant Procedures: SERVICE DATE: 10/03/17-235 EXAM TYPE: RAD - XRY-CHEST XRAY, TWO VIEWS EXAMINATION: XR CHEST CLINICAL INFORMATION: Cough, congestion COMPARISON: 08/10/2016 TECHNIQUE: 2 views of the chest were obtained. FINDINGS: Lung volumes are symmetric. There is mild patchy opacity in the mid to basilar right lung laterally. The left lung appears clear. No evidence of pneumothorax, pleural effusion, or pulmonary edema. The cardiomediastinal contour is unremarkable. Osteopenia is noted. IMPRESSION: Mild patchy opacity in the mid to basilar right lung, suggesting developing pneumonia in the proper clinical setting. Radiographic followup after treatment/resolution of symptoms is recommended. Disposition Summary Disposition Principal Diagnosis: #community acquired pnuemonia #macrocytic anemia Additional Diagnosis: #A fib on coumadin #HTN #HL #hypothyoridism Discharge Disposition: home or self care Discharge Instructions General Discharge Information Code Status: Full Code Patient's Diet: regular Patient's Activity: as tolerated Follow-Up Instructions/Appts: please follow up with your PCP within one week of discharge. Medications at Discharge Discharge Medications: Continue taking these medications: Atorvastatin Calcium (Lipitor) 10 MG TABLET 1 Tablet ORAL DAILY Comments: Last Taken: 10/06/17 Time: 9:00 PM Levothyroxine Sodium (Synthroid) 50 MCG TABLET 1 Tablet ORAL DAILY Comments: Last Taken: 10/07/17 Time: 6:30 AM Amlodipine Besylate (Norvasc) 5 MG TABLET 1 Tablet ORAL Every Morning Comments: Last Taken: 10/07/17 Time: 9:30 AM Nadolol (Corgard) 20 MG TABLET 20 Milligram ORAL TWICE DAILY Comments: Last Taken: 10/07/17 Time: 9:30 AM Warfarin Sodium (Coumadin) 2 MG TABLET 1 Tablet ORAL DAILY Instructions: Please hold for today and resume once INR is repeated. Dosed per INR Comments: Last Taken: 10/06/17 Time: 5:00 PM Rabeprazole Sodium (Aciphex) 20 MG TABLET.DR 1 Tablet ORAL WEDNESDAY, WEDNESDAY AND WEDNESDAY Comments: Last Taken: 10/06/17 Time: 6:30 AM Amlodipine (Norvasc) 2.5 MG TABLET 1 Tablet ORAL Every night Comments: Last Taken: 10/06/17 Time: 9:00 PM Start taking the following new medications: Azithromycin (Zithromax) 500 MG TABLET 1 Tablet ORAL DAILY Qty = 2 No Refills Instructions: TAKE DIRECTED Comments: Last Taken: 10/07/17 Time: 6:00 AM (RECIEVED IV DOSE) Amoxicillin (Amoxicillin) 875 MG TABLET 1 Tablet ORAL TWICE DAILY Qty = 4 No Refills Instructions: TAKE DIRECTED Comments: NOT GIVEN IN HOSPITAL Copies To: Vinh MATAMOROS,Deandre Beltrán; Nikhil MATAMOROS,Aaron Holloway Attending MD Review Statement Documenting Attending: Celso Venegas MD Other Findings: Agree with above summary of care.
[2017-10-05 22:03] VITALS: BP 128/62
[2017-10-06 06:31] VITALS: BP 140/78
--- NOTE | 2017-10-06 07:35 | PN- Housestaff ---
See Addendum Subjective Follow-up For: communtiy acquired pnuemonia Subjective: Seen and examined patient this morning, offers no compliants. She is concerned regarding her night time dose of Norvasc. She would like to know whether she should discontinue the dose or continue. Review of Systems Constitutional: Denies: chills, diaphoresis, fever, malaise, weakness, unexplained weight loss. Cardiovascular: Denies: chest pain, edema, orthopena, palpitations, peripheral edema, syncope. Respiratory: Denies: cough, hemoptysis, orthopnea, short of breath, sputum production, stridor, wheezing. Objective Last 24 Hrs of Vital Signs/I&O Vital Signs Date Time Temp Pulse Resp B/P B/P Pulse O2 O2 Flow FiO2 Mean Ox Delivery Rate 10/06 0749 71 140/78 10/06 0748 71 140/78 10/06 0631 99.0 71 140/78 93 Room Air 10/06 0000 Room Air 10/05 2350 96 Room Air Room Air 10/05 2203 98.1 70 18 128/62 92 Room Air 10/05 2017 128/62 10/05 2016 128/62 10/05 1702 95 Room Air 06/ 1442 98.3 71 18 136/52 97 Room Air / 1417 95 Room Air Intake & Output 10/06 1600 10/06 0800 10/06 0000 Intake Total 370 240 Output Total Balance 370 240 Intake, IV 250 Intake, Oral 120 240 Physical Exam General Appearance: Alert, Oriented X3, Cooperative, No Acute Distress Cardiovascular: Normal S1, Normal S2 Lungs: Clear to Auscultation, Normal Air Movement Abdomen: Normal Bowel Sounds, Soft, No Tenderness Extremities: No Edema Current Medications: Current Medications Sig/Yanni Start time Last Medication Dose Route Stop Time Status Admin Albuterol Sulfate 3 ML Q4P PRN 10/03 194 AC 10/05 INH 2350 Amlodipine Besylate 2.5 MG AT BEDTIME 10/03 2100 AC PO Amlodipine Besylate 5 MG DAILY 10/03 09 AC 10/06 PO 0749 Atorvastatin Calcium 10 MG MoWeFr@10/04 2100 AC 10/04 PO 2027 Azithromycin 500 MG 10/04 0700 AC 10/06 Sodium Chloride 250 ML IV 0521 Ceftriaxone Sodium 1,000 MG 10/04 0655 AC 10/06 IV 0518 Guaifenesin 600 MG Q12 10/04 0957 AC 10/05 PO 0816 Guaifenesin 10 ML Q6-PRN PRN 10/03 0545 AC 10/06 PO 0000 Levothyroxine Sodium 0.05 MG 0600 10/05 0600 AC 10/06 PO 0521 Nadolol 20 MG BID 10/03 0900 AC 10/06 PO 0748 Patient Medication 1 ED ONE ONE 10/05 1645 DC 10/05 Teaching ED 10/05 1646 1802 Rabeprazole Sodium 20 MG MoWeFr@0700 / 0700 AC 10/06 PO 0623 Warfarin Sodium 1 MG COUMADIN 1700 ONE 10/05 1700 DC 10/05 PO 10/05 1701 1812 Last 24 Hrs of Lab/Parish Results Last 24 Hrs of Labs/Mics: Laboratory Tests 10/06/17 0817: PT 35.1 H, INR 3.18 H Microbiology 10/05 1042 LOWER RESP: Respiratory Culture - RES 10/05 1042 LOWER RESP: Gram Stain - RES Assessment/Plan Assessment: 87-year-old woman with past medical history of atrial fibrillation on warfarin, hypertension, spinal stenosis, hypothyroidism, hyperlipidemia, GERD admitted for community acquired pnuemonia. Chest x-ray revealed mild patchy opacity in the mid to basilar right lung suggesting pneumonia. Assesment and plan #Community-acquired pneumonia: ia. on presentation she has tachypnea and leukocytosis, met 2/4 SIRS criteria on admission qualifying for sepsis. QSOFA score was 1 at admission with CURB-65 score 1. -Ct Ceftriaxone and azithromycin - day 3 today. -Ct Guaifenesin -Respiratory cultures pending, prelimin blood cultures show no growth. # Chronic Macrocytic anemia: Unclear etiology. B12 and folate with normal limit possible underlying dysplastic syndrome to monitored as outpatient #Atrial fibrillation on Coumadin : rate controlled, ct daily INR and dose Coumadin to maintain therapeutic range. INR 3.18. will dose coumadin 0.5mg today. #Hypertension : Stable at 140s/70s, will restart her night time dose of 2.5 mg norvasc with 5 mg in the morning, ct nadolol 20 mg daily #Hyperlipidemia : ct statin #Hypothyroidism : continue with Synthyroid 50 g daily FC heart healthy diet Problem List: 1. Community acquired pneumonia Pain Ratin Pain Location: na Pain Goal: Pain 4 or less Pain Plan: current regimen Tomorrow's Labs & Rationales: none required
--- NOTE | 2017-10-06 08:14 | Patient Discharge Instructions ---
Discharge Instructions General Discharge Information You were seen/treated for: community acquired pnuemonia Special Instructions: please follow up with your PCP within one week of discharge. please follow up with your button cutter within two weeks of discharge Please hold your coumadin today. You have an appoinment at 11:45 am with Hannah at [facility]madin clinic tommorrow Diet Recommended Diet: Heart Healthy Acute Coronary Syndrome Inclusion Criteria At DC or during hospital stay patient has or had the following: ACS DIAGNOSIS No Discharge Core Measures Meds if any: Prescribed or Continued at Discharge Meds if any: NOT Prescribed or Continued at Discharge Congestive Heart Failure Inclusion Criteria At DC or during hospital stay patient has or had the following: CHF DIAGNOSIS No Discharge Core Measures Meds if any: Prescribed or Continued at Discharge Meds if any: NOT Prescribed or Continued at Discharge Cerebrovascular accident Inclusion Criteria At DC or during hospital stay patient has or had the following: CVA/TIA Diagnosis No Discharge Core Measures Meds if any: Prescribed or Continued at Discharge Meds if any: NOT Prescribed or Continued at Discharge Venous thromboembolism Inclusion Criteria VTE Diagnosis No VTE Type NONE VTE Confirmed by (Test) NONE Discharge Core Measures - Per Current guidelines, there needs to be overlap - treatment for the first 5 days of Warfarin therapy. - If discharged on Warfarin prior to 5 days of - overlap therapy, the patient will need to be - assessed for post discharge needs including - *Post discharge parental anticoagulation - *Warfarin and/or parental anticoagulation education - *Follow up date to check INR post discharge At least 5 days overlap therapy as Inpatient No Meds if any: Prescribed or Continued at Discharge Note: Overlap Therapy is Warfarin and Anticoagulant Meds if any: NOT Prescribed or Continued at Discharge
[2017-10-06 08:46] LABS: PT 35.1 SEC (9.4-12.5)
[2017-10-06 16:00] VITALS: BP 134/76
[2017-10-06] MEDS ORDERED: ZITHROMAX500 M2 PO (17:00)
[2017-10-06] MEDS ORDERED: AMOXICILLIN875 M1 PO (17:00)
[2017-10-06 23:20] VITALS: BP 138/72
[2017-10-07 06:40] VITALS: BP 139/67
--- NOTE | 2017-10-07 07:18 | PN- Housestaff ---
See Addendum Subjective Follow-up For: communtiy acquired pnuemonia Subjective: Seen and examined patient this morning, offers no compliants. States that she did well with PT. Denies fever, chills, shortness of breath. Reports constipation since the past three days. Review of Systems Constitutional: Denies: see HPI. Objective Last 24 Hrs of Vital Signs/I&O Vital Signs Date Time Temp Pulse Resp B/P B/P Pulse O2 O2 Flow FiO2 Mean Ox Delivery Rate 10/07 1427 98.5 68 20 142/62 93 Room Air 10/07 0939 66 135/64 10/07 0939 66 135/64 / 0640 98.2 65 20 139/67 93 Room Air 10/07 0000 92 Room Air 10/06 2320 98.2 70 20 138/72 92 Room Air 10/06 2107 70 138/72 10/06 2104 70 138/72 10/06 1950 94 Room Air 10/06 1600 98.4 76 18 134/76 94 Room Air Intake & Output 10/07 1600 10/07 0800 10/07 0000 Intake Total 800 270 240 Output Total Balance 800 270 240 Intake, IV 270 Intake, Oral 800 240 Number Bowel Movements Physical Exam General Appearance: Alert, Oriented X3, Cooperative, No Acute Distress Cardiovascular: Normal S1, Normal S2 Lungs: decreased air entry in upper areas b/l Abdomen: Normal Bowel Sounds, Soft, No Tenderness Current Medications: Current Medications Sig/Yanni Start time Last Medication Dose Route Stop Time Status Admin Albuterol Sulfate 3 ML Q4P PRN 10/03 1945 10/05 INH 2350 Amlodipine Besylate 2.5 MG AT BEDTIME 10/03 2099 AC 10/06 PO 210 Amlodipine Besylate 5 MG DAILY 10/03 09 10/07 PO 0939 Atorvastatin Calcium 10 MG MoWeFr@2100 10/04 2100 AC 10/06 PO 2108 Azithromycin 500 MG 10/04 10/07 Sodium Chloride 250 ML IV 0542 Ceftriaxone Sodium 1,000 MG 10/04 0655 10/07 IV 0542 Guaifenesin 600 MG Q12 10/04 0957 10/05 PO 0816 Guaifenesin 10 ML Q6-PRN PRN 10/03 0545 10/06 PO 0000 Levothyroxine Sodium 0.05 MG 10/05 AC 10/07 PO 0541 Nadolol 20 MG BID 10/03 0900 AC 10/07 PO 0939 Rabeprazole Sodium 20 MG MoWeFr@0700 10/04 0700 AC 10/06 PO 0623 Senna/Docusate Sodium 2 TAB DAILY 10/07 0845 AC 10/07 PO 1041 Warfarin Sodium 0.5 MG COUMADIN 1700 ONE 10/06 1700 DC 10/06 PO 10/06 1701 1759 Last 24 Hrs of Lab/Parish Results Last 24 Hrs of Labs/Mics: Laboratory Tests 10/07/17 0710: PT 41.9 H, INR 3.79 H Assessment/Plan Assessment: 87-year-old woman with past medical history of atrial fibrillation on warfarin, hypertension, spinal stenosis, hypothyroidism, hyperlipidemia, GERD admitted for community acquired pnuemonia. Chest x-ray revealed mild patchy opacity in the mid to basilar right lung suggesting pneumonia. Assesment and plan #Community-acquired pneumonia: -Ct Ceftriaxone and azithromycin - day 4 will be discharged on amoxicillin and azithromycin -Ct Guaifenesin -Respiratory cultures growing yeast which is likely a contaminant, prelimin blood cultures show no growth. # Chronic Macrocytic anemia: Unclear etiology. B12 and folate with normal limit possible underlying dysplastic syndrome to monitored as outpatient #Atrial fibrillation on Coumadin : rate controlled, INR 3.79. will hold coumadin for today. Called and made an appointment for her at the coumadin clinic on 12/2017 at 11:45 am #Hypertension : Stable, continue home dose of 2.5 mg norvasc with 5 mg in the morning, ct nadolol 20 mg daily #Hyperlipidemia : ct statin #Hypothyroidism : continue with Synthyroid 50 g daily FC heart healthy diet stable for discharge to home today Problem List: 1. Community acquired pneumonia Pain Ratin Pain Location: na Pain Goal: Pain 4 or less Pain Plan: current regimen Tomorrow's Labs & Rationales: none required
[2017-10-07 08:24] LABS: PT 41.9 SEC (9.4-12.5)
[2017-10-07] MEDS ORDERED: AMOXICILLIN875 M1 PO (13:44)
[2017-10-07] MEDS ORDERED: ZITHROMAX500 M2 PO (13:44)
[2017-10-07 14:27] VITALS: BP 142/62
== END 2017-10-07 17:30 | disposition home health service (06) | DRG 195 ==
LOC: ERH 02:12 → 2NB 04:38 → ERHI 04:38 → EDBEDREQ 10:37 → ENRESERV 13:53 → ENTRNSPT 16:03 → EDTRNSPTSTS 16:13 → 2NB 16:28 → CMPTRNSPT 16:44 → 2NB 10-04 08:27 → ENPENDDIS 10-07 09:42 → ENTRNSPT 10-07 17:16 → EDTRNSPT 10-07 17:21 → EDTRNSPTSTS 10-07 17:21 → 2NB 10-07 17:30 → CMPTRNSPT 10-07 17:34
PROVIDERS: Emergency Medicine; Internal Medicine; Preventive Medicine Public Health & General Preventive Medicine
DX: J18.9 Pneumonia, unspecified organism (principal); I48.2 Chronic atrial fibrillation; D53.9 Nutritional anemia, unspecified; E03.9 Hypothyroidism, unspecified; E78.5 Hyperlipidemia, unspecified; K21.9 Gastro-esophageal reflux disease without esophagitis; I10 Essential (primary) hypertension; M48.00 Spinal stenosis, site unspecified; Z79.01 Long term (current) use of anticoagulants
CPT/HCPCS: 2NBP; 36415; 36592; 71046; 82436; 87040; 87070; 87071; 97116-GO; 97161-GP; J0456; J0696; J1815; J7040

== ENCOUNTER 2017-12-13 01:52 | Emergency (ER) | payer OTHER ==
[~2017-12-13] VITALS: Ht 160 cm; Wt 68.0 kg
[~2017-12-13 01:52] MED LIST changes: +ACIPHEX20 M1 PO; +AMOXICILLIN875 M1 PO; +CORGARD20 M1 PO; +COUMADIN2 M1 PO; +LIPITOR10 M1 PO; +NORVASC2.5 M1 PO; +NORVASC5 M1 PO; +SYNTHROID50 MCG PO; +ZITHROMAX500 M2 PO
--- NOTE | 2017-12-13 02:26 | ED GENERAL ADULT ---
History of Present Illness General Chief Complaint: Upper Respiratory Sx/Fever Stated Complaint: CONSISTENT COUGH FOR 5DAYS, CAN'T SLEEP Source: patient Exam Limitations: no limitations Vital Signs & Intake/Output Vital Signs & Intake/Output Vital Signs Date Time Temp Pulse Resp B/P B/P Pulse O2 O2 Flow FiO2 Mean Ox Delivery Rate 12/13 0701 98.7 73 20 171/73 93 Room Air 12/13 0500 99.1 66 20 139/61 93 Room Air 12/13 0245 95 Room Air 12/13 0207 99.6 69 20 148/69 95 Room Air Allergies Coded Allergies: NO KNOWN ALLERGIES (07/17/12) Reconcile Medications Albuterol Sulfate (Proair Hfa) 90 MCG HFA.AER.AD 2 PUF INH Q6 PRN BRONCHITIS Amlodipine (Norvasc) 2.5 MG TABLET 1 TAB PO QPM BP (Reported) Amlodipine Besylate (Norvasc) 5 MG TABLET 1 TAB PO QAM HTN (Reported) Amoxicillin 875 MG TABLET 1 TAB PO BID pneumonia TAKE DIRECTED Atorvastatin Calcium (Lipitor) 10 MG TABLET 1 TAB PO DAILY HLD (Reported) Azithromycin (Zithromax) 500 MG TABLET 1 TAB PO DAILY pneumonia TAKE DIRECTED Codeine Phosphate/Guaifenesi (Guaifenesin AC Cough Syrup) 10 MG-100 MG/5 ML LIQUID 1 TSP PO QPM PRN COUGH Doxycycline Hyclate (Vibramycin) 100 MG CAPSULE 1 CAP PO BID BRONCHITIS Levothyroxine Sodium (Synthroid) 50 MCG TABLET 1 TAB PO DAILY HYPOTHYROIDISM (Reported) Nadolol (Corgard) 20 MG TABLET 20 MG PO BID HTN (Reported) Rabeprazole Sodium (Aciphex) 20 MG TABLET.DR 1 TAB PO Wednesday GERD (Reported) Warfarin Sodium (Coumadin) 2 MG TABLET 1 TAB PO DAILY AFIB (Reported) Please hold for today and resume once INR is repeated. Dosed per INR Triage Note: PT TO ED C/O COUGH FOR 5 DAYS. WHITE SPUTUM. O2 SAT 95% ON RA. "I CAN'T SLEEP" "MY LAST WEEK" ADVENTITIOUS LUNG SOUNDS ON AUSCULTATION. Triage Nurses Notes Reviewed? yes Onset: Abrupt Duration: day(s): Timing: recent history HPI: 12/13/17 3:30 AM 87-year-old female presents to the emergency department for a cough for 5 days. She's been under a lot of stress since her recently . She was at the which was out in the rain. She has used an albuterol inhaler in the past after she recovered from pneumonia. She does have a history of bronchitis and CHF in the past, also paroxysmal A. fib. EKG today reveals normal sinus rhythm LVH and no change from old. No chest pain or shortness. On initial evaluation of her lungs she had bilateral poor air entry; heart is regular. Chest x-ray is negative Past History Travel History Traveled to [place] past 21 day No Medical History Any Pertinent Medical History? 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 No Review of Systems Review of Systems Constitutional: Denies: fever. EENTM: Denies: visual changes. Respiratory: Reports: cough. Denies: short of breath. Cardiovascular: Denies: chest pain. GI: Denies: abdominal pain. Genitourinary: Reports: no symptoms. Musculoskeletal: Reports: no symptoms. Skin: Reports: no symptoms. Neurological/Psychological: Reports: no symptoms. Hematologic/Endocrine: Reports: no symptoms. Immunologic/Allergic: Reports: no symptoms. Physical Exam Physical Exam General Appearance: alert, awake, anxious, mild distress Head: atraumatic, normal appearance Eyes: Bilateral: normal appearance, PERRL, EOMI. Ears, Nose, Throat: normal pharynx, normal ENT inspection Neck: normal inspection, supple Respiratory: no respiratory distress, decreased breath sounds, rhonchi Cardiovascular: regular rate/rhythm Peripheral Pulses: 4+ radial (R), 4+ radial (L) Gastrointestinal: soft, non-tender Back: decreased range of motion Extremities: no edema Neurologic/Psych: no motor/sensory deficits, awake, alert, oriented x 3 Skin: intact, normal color, warm/dry Core Measures ACS in differential dx? No CVA/TIA Diagnosis: No Sepsis Present: No Sepsis Focused Exam Completed? No Progress Differential Diagnoses I considered the following diagnoses in my evaluation of the patient: [ Congestive heart failure, pneumonia, bronchitis, COPD,] Plan of Care: Orders Procedure Date/time Status TROPONIN LEVEL 12/13 213 Complete MAGNESIUM 12/13 213 Complete COMPREHENSIVE METABOLIC PANEL 12/13 213 Complete CBC WITHOUT DIFFERENTIAL 12/13 213 Complete EKG 12/13 213 Active Current Medications Sig/Yanni Start time Last Medication Dose Stop Time Status Admin Prednisone 20 MG DAILY 12/13 0900 CAN Laboratory Tests 12/13/17 0250: Anion Gap 6, Estimated GFR > 60, BUN/Creatinine Ratio 21.4, Glucose 103 H, Calcium 8.5, Magnesium 2.0, Total Bilirubin 0.7, AST 23, ALT 25, Alkaline Phosphatase 50, Troponin I < 0.01, Total Protein 6.6, Albumin 3.6, Globulin 3.0, Albumin/Globulin Ratio 1.2, CBC w Diff NO MAN DIFF REQ, RBC 2.48 L, MCV 104.9 H, MCH 35.4 H, MCHC 33.7, RDW 16.0 H, MPV 7.7, Gran % 68.8, Lymphocytes % 15.1 L, Monocytes % 12.3 H, Eosinophils % 3.1, Basophils % 0.7, Absolute Granulocytes 3.3, Absolute Lymphocytes 0.7 L, Absolute Monocytes 0.6, Absolute Eosinophils 0.1, Absolute Basophils 0 CXR Impression: no acute abnormality Initial ED EKG: NSR (left anterior fascicular block), LVH Prior EKG: unchanged Comments: PATIENT: VILMA ALTMAN PRESENT AGE: 87 PATIENT ACCOUNT NO: [id number] : 31 LOCATION: [facility] ORDERING PHYSICIAN: Rom Ahn DO SERVICE DATE: 12/13/17 EXAM TYPE: RAD - XRY-CHEST XRAY, TWO VIEWS EXAMINATION: XR CHEST CLINICAL INFORMATION: Shortness of breath. Cough. COMPARISON: 10/03/2017 TECHNIQUE: 2 views of the chest were obtained. FINDINGS: The lungs are hyperexpanded. No consolidation, edema, or effusion. No pneumothorax. The cardiomediastinal silhouette is unchanged with a tortuous aorta. No acute osseous abnormality. IMPRESSION: Hyperexpanded lungs. No acute pulmonary finding. DICTATED BY: Victor M Us MD DATE/TIME DICTATED:12/13/17248 FREIGHT LOADER:LILIAM DATE/TIME TRANSCRIBED:12/13/17248 CONFIDENTIAL, DO NOT COPY WITHOUT APPROPRIATE AUTHORIZATION. <Electronically signed in Other Vendor System> SIGNED BY: Victor M Us MD 12/13 0254 Departure Departure Disposition: STILL A PATIENT Condition: Stable Clinical Impression Primary Impression: Bronchitis Referrals: Nikhil MATAMOROS,Aaron Holloway (PCP/Family) Departure Forms: Customer Survey General Discharge Information Prescriptions: Current Visit Scripts Doxycycline Hyclate (Vibramycin) 1 CAP PO BID #14 CAP Albuterol Sulfate (Proair Hfa) 2 PUF INH Q6 PRN BRONCHITIS #1 INHAL Codeine Phosphate/Guaifenesi (Guaifenesin AC Cough Syrup) 1 TSP PO QPM PRN COUGH #4 OZ Comments Prior to discharge the patient ambulated up and down the hallway without difficulty. Oxygen saturation remained steady at 93%. She denies any shortness of breath. No chest pain. Labs unremarkable. Chest x-ray negative. She got significant relief Robitussin-AC, prednisone and albuterol nebulizer. She was discharged in the company of her son. She will follow-up with her primary care doctor today. Critical Care Note Critical Care Note Critical Care Time: non-applicable
--- NOTE | 2017-12-13 02:54 | RADIOLOGY REPORT ---
EXAMINATION: XR CHEST CLINICAL INFORMATION: Shortness of breath. Cough. COMPARISON: 10/03/2017 TECHNIQUE: 2 views of the chest were obtained. FINDINGS: The lungs are hyperexpanded. No consolidation, edema, or effusion. No pneumothorax. The cardiomediastinal silhouette is unchanged with a tortuous aorta. No acute osseous abnormality. IMPRESSION: Hyperexpanded lungs. No acute pulmonary finding.
[2017-12-13 03:06] LABS: ABSOLUTE BASOPHIL COUNT 0 /CUMM (0.0-0.2); ABSOLUTE EOSINOPHIL COUNT 0.1 /CUMM (0.0-0.7); ABSOLUTE GRANULOCYTE CT 3.3 /CUMM (1.4-6.5); ABSOLUTE LYMPH COUNT 0.7 /CUMM (1.2-3.4); ABSOLUTE MONOCYTE COUNT 0.6 /CUMM (0.10-0.60); BASOPHIL % 0.7 % (0.0-2.0); EOSINOPHIL % 3.1 % (0-5); GRANULOCYTE % 68.8 % (42.2-75.2); MEAN CORPUSCULAR HGB 35.4 PG (27.0-31.0); MEAN CORPUSCULAR HGB CONC 33.7 G/DL (33.0-37.0); MEAN CORPUSCULAR VOLUME 104.9 FL (81.0-99.0); MEAN PLATELET VOLUME 7.7 FL (7.4-10.4); PLATELET COUNT 250 /CUMM (130-400); RED BLOOD CELL CT 2.48 /CUMM (4.20-5.40); WHITE BLOOD CELL COUNT 4.9 /CUMM (4.8-10.8)
[2017-12-13 07:01] VITALS: BP 171/73
[2017-12-13] MEDS ORDERED: GUAIFENESIN AC473 M2 PO (07:16)
[2017-12-13] MEDS ORDERED: VIBRAMYCIN100 MG PO (07:16)
[2017-12-13] MEDS ORDERED: PROAIR HFA8.5 GM INH (07:16)
== END 2017-12-13 07:32 ==
LOC: ERH 01:52
PROVIDERS: Emergency Medicine
DX: J40 Bronchitis, not specified as acute or chronic (principal); R05 Cough; I48.91 Unspecified atrial fibrillation; I50.9 Heart failure, unspecified; D64.9 Anemia, unspecified; E07.9 Disorder of thyroid, unspecified; I10 Essential (primary) hypertension
CPT/HCPCS: 71046; 93005; 93010

== ENCOUNTER 2017-12-13 16:07 | Inpatient (IN) | payer OTHER ==
[~2017-12-13] VITALS: Ht 162.6 cm; Wt 63.5 kg
[~2017-12-13 16:07] MED LIST changes: +GUAIFENESIN AC473 M2 PO; +PROAIR HFA8.5 GM INH; +VIBRAMYCIN100 MG PO
--- NOTE | 2017-12-13 17:02 | ED DYSPNEA/ASTHMA COMPLAINT ---
History of Present Illness General Chief Complaint: Dyspnea (COPD, CHF, Other) Stated Complaint: SOB Source: patient, family, old records Exam Limitations: no limitations Vital Signs & Intake/Output Vital Signs & Intake/Output Vital Signs Date Time Temp Pulse Resp B/P B/P Pulse O2 O2 Flow FiO2 Mean Ox Delivery Rate 12/16 1999 97 Nasal 4.0L Cannula 12/15 1956 99 Nasal 4.0L Cannula 12/15 1600 97 Nasal 4.0L Cannula 12/15 1600 98.0 66 20 130/70 96 Nasal 4.0L Cannula 12/15 1342 94 Nasal 4.0L Cannula 12/15 1200 95 Nasal 4.0L Cannula 12/15 0834 98 Nasal 40% Cannula 12/15 0800 99 Nasal 40% Cannula 12/15 0800 97.1 60 20 146/70 96 Nasal 40% Cannula 12/15 0400 98 Nasal 40% Cannula 12/15 0043 97 Nasal 40% Cannula 12/15 0000 97 Nasal 40% Cannula 12/15 0000 97.6 61 16 95/50 97 Nasal 40% Cannula ED Intake and Output 12/15 0000 12/14 1200 Intake Total 775 120 Output Total 500 400 Balance 275 -280 Intake, IV 250 0 Intake, Oral 525 120 Number 0 Bowel Movements Output, Urine 500 400 Allergies Coded Allergies: NO KNOWN ALLERGIES (07/17/12) Reconcile Medications Albuterol Sulfate (Proair Hfa) 90 MCG HFA.AER.AD 2 PUF INH Q6 PRN BRONCHITIS Amlodipine (Norvasc) 2.5 MG TABLET 1 TAB PO QPM BP (Reported) Amlodipine Besylate (Norvasc) 5 MG TABLET 1 TAB PO QAM HTN (Reported) Amoxicillin 875 MG TABLET 1 TAB PO BID pneumonia TAKE DIRECTED Atorvastatin Calcium (Lipitor) 10 MG TABLET 1 TAB PO DAILY HLD (Reported) Azithromycin (Zithromax) 500 MG TABLET 1 TAB PO DAILY pneumonia TAKE DIRECTED Codeine Phosphate/Guaifenesi (Guaifenesin AC Cough Syrup) 10 MG-100 MG/5 ML LIQUID 1 TSP PO QPM PRN COUGH Doxycycline Hyclate (Vibramycin) 100 MG CAPSULE 1 CAP PO BID BRONCHITIS Levothyroxine Sodium (Synthroid) 50 MCG TABLET 1 TAB PO DAILY HYPOTHYROIDISM (Reported) Nadolol (Corgard) 20 MG TABLET 20 MG PO BID HTN (Reported) Rabeprazole Sodium (Aciphex) 20 MG TABLET. 1 TAB PO Wednesday GERD (Reported) Warfarin Sodium (Coumadin) 2 MG TABLET 1 TAB PO DAILY AFIB (Reported) Please hold for today and resume once INR is repeated. Dosed per INR Triage Note: PATIENT ARRIVES TO ED WITH C/O DIFFICULTY BREATHING, SOB, AND ROOM O2 SAT 81%. PATIENT BROUGHT IMMEDIATELY BACK TO ROOM FOR EVAL. PROVIDER AT BEDSIDE. PATIENT STATES SHE WAS SEEN LAST NIGHT IN ED FOR SAME, WITH NO IMPROVEMENT TODAY. SON STATES HER O2 SATURATION AT HOME WAS 85% AND HE BROUGHT HER TO HOSPITAL IMMEDIATELY. PATIENT REPORTS FEELING SICK X 5 DAYS, RECENT LOSS OF 2 WEEKS AGO AND HAS NOT BEEN FEELING WELL SINCE. PATIENT REPORTS PRODUCTIVE COUGH WITH YELLOW COLORED SPUTUM. RESPIRATORY CALLED FOR EVAL. PLACED ON 4L NC. Triage Nurses Notes Reviewed? yes Onset: Gradual Duration: day(s): Timing: recent history Severity: severe HPI: 87 she'll female with history of A. fib on Coumadin, hypertension presents emergency department for worsening dyspnea and hypoxia. Patient arrives with O2 saturation in 70s. She was seen and evaluated here in emergency department early this morning, at the time chest x-ray was normal. Patient was discharged with doxycycline and cough medication for possible bronchitis. At that time patient' s oxygen level was stable, 90s. Patient's son states that O2 dropped to 85 at home and so he brought her straight back. Patient having difficulty speaking in complete sentences due to her shortness of breath. Son reports history of 5 days of fatigue, weakness, cough productive of yellow sputum. Shortness of breath began today. PAtient denies chest pain, fevers, abdominal pain, vomiting. (Dee SHEARER,Tracy Torres) Past History Travel History Traveled to [place] past 21 day No Medical History Any Pertinent Medical History? 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 No (Tracy Zheng) Review of Systems Review of Systems Constitutional: Reports: see HPI. EENTM: Reports: no symptoms. Respiratory: Reports: see HPI. Cardiovascular: Reports: no symptoms. GI: Reports: no symptoms. Genitourinary: Reports: no symptoms. Musculoskeletal: Reports: no symptoms. Skin: Reports: no symptoms. Neurological/Psychological: Reports: no symptoms. Hematologic/Endocrine: Reports: no symptoms. Immunologic/Allergic: Reports: no symptoms. All Other Systems: Reviewed and Negative (Tracy Zheng) Physical Exam Physical Exam General Appearance: alert, awake, mild distress Head: atraumatic, normal appearance Eyes: Bilateral: normal appearance. Ears, Nose, Throat: hearing grossly normal Neck: normal inspection, supple, full range of motion Respiratory: bilateral corse breath sounds, patient speaking in 2-3 word sentences Cardiovascular: regular rate/rhythm Gastrointestinal: normal bowel sounds, soft, non-tender, no organomegaly Extremities: normal inspection, normal range of motion Neurologic/Psych: awake, alert, oriented x 3 Skin: intact, normal color, warm/dry Core Measures ACS in differential dx? Yes CVA/TIA Diagnosis No Sepsis Present: No Sepsis Focused Exam Completed? No (Tracy Zheng) Progress Differential Diagnosis: asthma, AMI, bronchitis, CHF, COPD, pulmonary embolism, pneumonia, pneumothorax, unstable angina Plan of Care: Orders Procedure Date/time Status XRY-PORTABLE CHEST XRAY 12/16 0500 Active PROTHROMBIN TIME 12/16 0500 Active ICU LAB BUNDLE 12/16 0500 Active CBC WITHOUT DIFFERENTIAL 12/16 0500 Active THERAPIST ORDERS 12/15 UNK Complete INCENTIVE SPIROMETRY TRX (GEN) 12/15 UNK Complete DC BIPAP/CPAP 12/15 UNK Complete PT Evaluate & Treat 12/15 UNK Active Hemoccult 12/15 UNK Active AEROSOL CHG 12/14 UNK Complete OXYGEN 12/14 UNK Complete OXYGEN DAILY CHARGE 12/14 UNK Complete CONTIN. POS. AIRWAY PRESS. CHG 12/14 UNK Complete OXYGEN SETUP CHG 12/13 UNK Complete OXYGEN 12/13 UNK Complete OXYGEN TRANSPORT 12/13 UNK Complete CONTIN. POS. AIRWAY PRESS. CHG 12/13 UNK Complete Current Medications Sig/Yanni Start time Last Medication Dose Stop Time Status Admin Prednisone 30 MG DAILY 08/16 0900 AC Guaifenesin 10 ML ONCE ONE 12/15 2330 UNVr (Robitussin) 12/15 2331 Patient Own 1 UNIT MoWeFr@1700 12/15 1700 AC 12/15 Medication 2145 (Patients Own Med) Patient Own 1 UNIT MoWeFr 12/15 1114 AC 12/15 Medication 1140 (Patients Own Med) Patient Own 1 UNIT 1700 12/14 1700 AC 12/14 Medication 1614 (Patients Own Med) Guaifenesin 600 MG Q12H 12/14 1420 AC (Mucinex) Patient Own 1 UNIT 0700 12/14 1130 AC 12/15 Medication 0733 (Patients Own Med) Patient Own 1 UNIT DAILY 12/14 1130 AC 12/15 Medication 0849 (Patients Own Med) Patient Own 1 UNIT BID 12/14 1115 AC 12/15 Medication 2042 (Patients Own Med) Albuterol Sulfate 3 ML EVERY 4 HRS/AWAKE 12/14 0800 AC 12/15 (Proventil) 1145 Ceftazidime 1,000 MG Q12 12/13 2100 AC 12/15 (Fortaz) 214 Vancomycin HCl 1,000 MG DAILY 12/13 2100 AC 12/15 Sodium Chloride 250 ML 0848 (Normal Saline 0.9%) Albuterol Sulfate 2 PUF Q4P PRN 12/13 2014 AC (Ventolin) Acetaminophen 650 MG Q6P PRN 12/13 1814 AC (Tylenol) Acetaminophen 1,000 MG Q6P PRN 12/13 1814 AC (Ofirmev) Laboratory Tests 12/15/17 0405: Anion Gap 5, Estimated GFR > 60, Glucose 106 H, Calcium 8.2 L, Phosphorus 3.7, Magnesium 2.3, Total Bilirubin 0.6, AST 27, ALT 32, Albumin 3.5, PT 44.6 *H, INR 4.03 *H, CBC w Diff NO MAN DIFF REQ, RBC 2.39 L, MCV 105.1 H, MCH 35.2 H, MCHC 33.5, RDW 15.9 H, MPV 8.4, Gran % 67.6, Lymphocytes % 15.2 L, Monocytes % 17.0 H, Eosinophils % 0.1, Basophils % 0.1, Absolute Granulocytes 3.2, Absolute Lymphocytes 0.7 L, Absolute Monocytes 0.8 H, Absolute Eosinophils 0, Absolute Basophils 0 On Arrival here in emergency department patient with low O2 saturation and 70s. She was brought immediately into room 5. 3 L O2 via nasal cannula administered with O2 saturation at 92%. Patient sitting upright in bed. She is not in respiratory distress. Bilateral coarse wheezing, nebulizer treatment ordered. Given recent chest x-ray from yesterday we'll obtain CT scan to assess for PE versus pneumonia. Patient declines CTA and will obtain dry CT scan. Will give 125 mg IV Solu-Medrol. Dr. Donaldson agrees with this plan. 5:00 pm - upon patient's return from CT scan O2 saturation dropped to 60s and patient in noted respiratory distress. Dr. Sullivan at bedside. Patient placed on BiPAP and administered continuous albuterol, 2 g magnesium. O2 saturation increased to 89-[address] Donaldson spoke with Dr. Noel regarding ICU admission. Diagnostic Imaging: Viewed by Me: CT Scan. Discussed w/RAD: CT Scan. Initial ED EKG: sinus rhythm @75bpm, nonspecific ST changes Prior EKG: unchanged (12/13/17) (Dee SHEARER,Tracy Torres) Radiology Impression: 1. Small groundglass opacity in the posterior right middle lobe subpleural lung. Measures about 2 x 1 cm. Consider follow-up CAT scan in 3 months. The Fleischner Society recommendations for incidental sub-solid pulmonary nodules are as follows: Solitary pure ground glass nodule < or = to 5 mm: No follow up needed. Solitary pure ground glass nodule > 5 mm: Follow up CT at 3 months; if unchanged, annual CT for at least 3 years. Solitary part-solid nodule: Follow up CT at 3 months; if persistent and solid component < [address] mm, annual CT for at least 3 years. If persistent and solid component > or = 5 mm, biopsy or resection. Multiple pure ground glass sub-solid nodules < or = to 5mm: CT at 2 and 4 years. Multiple pure ground glass sub-solid nodules > 5mm, no dominant lesion: Follow up CT at 3 months; if unchanged, annual CT for at least 3 years. Dominant nodule(s) with part-solid or solid component: Follow up CT at 3 months; if persistent, biopsy or resection. Rhythm Strip: sinus tachycardia (Isidro Donaldson MD) Departure Departure Disposition: STILL A PATIENT Condition: Stable Referrals: Nikhil MATAMOROS,Aaron Holloway (PCP/Family) Departure Forms: Customer Survey General Discharge Information (Tracy Zheng) Departure Clinical Impression Primary Impression: Respiratory failure Admission Note Spoke With: Yovany Noel MD Documentation of Exam: Documentation of any treatments & extenuating circumstances including Concerns Regarding Discharge (functional status, medication knowledge or non-compliance, living conditions, etc.) that warrant an admission rather than observation: ICU monitoring supplemental oxygen pulmonary evaluation serial lab exam follow cultures IV antibiotics medication adjustment continuing care discharge planning PA/RESIDENT ADVISOR Co-Sign Statement Statement: ED Attending supervision documentation- x I saw and evaluated the patient. I have also reviewed all the pertinent lab results and diagnostic results. I agree with the findings and the plan of care as documented in the PA's/RESIDENT ADVISOR's documentation. Acute respiratory failure, hypertension with CT chest + for groud glass opacities/nodules. Supportive care and BP control with great improvement in clinical condition. [] I have reviewed the ED Record and agree with the PA's/RESIDENT ADVISOR's documentation. [] Additions or exceptions (if any) to the PAs/RESIDENT ADVISOR's note and plan are summarized below: [] (Isidro Donaldson MD) Critical Care Note Critical Care Note Critical Care Time: 30-74 min (Tracy Zheng) Critical Care Note Critical Care Time: 30-74 min (65) (Isidro Donaldson MD) dominant lesion: Follow up CT at 3 months; if unchanged, annual CT for at least 3 years. Dominant nodule(s) with part-solid or solid component: Follow up CT at 3 months; if persistent, biopsy or resection. Rhythm Strip: sinus tachycardia (Isidro Donaldson MD) Departure Departure Disposition: STILL A PATIENT Condition: Stable Referrals: Aaron Tejeda MD (PCP/Family) Departure Forms: Customer Survey General Discharge Information (Tracy Zheng) Departure Clinical Impression Primary Impression: Respiratory failure Admission Note Spoke With: Yovany Noel MD Documentation of Exam: Documentation of any treatments & extenuating circumstances including Concerns Regarding Discharge (functional status, medication knowledge or non-compliance, living conditions, etc.) that warrant an admission rather than observation: ICU monitoring supplemental oxygen pulmonary evaluation serial lab exam follow cultures IV antibiotics medication adjustment continuing care discharge planning PA/RESIDENT ADVISOR Co-Sign Statement Statement: ED Attending supervision documentation- x I saw and evaluated the patient. I have also reviewed all the pertinent lab results and diagnostic results. I agree with the findings and the plan of care as documented in the PA's/RESIDENT ADVISOR's documentation. Acute respiratory failure, hypertension with CT chest + for groud glass opacities/nodules. Supportive care and BP control with great improvement in clinical condition. [] I have reviewed the ED Record and agree with the PA's/RESIDENT ADVISOR's documentation. [] Additions or exceptions (if any) to the PAs/RESIDENT ADVISOR's note and plan are summarized below: [] (Anika MATAMOROS,Isidro) Critical Care Note Critical Care Note Critical Care Time: 30-74 min (Dee SHEARER,Tracy Torres) Critical Care Note Critical Care Time: 30-74 min (65) (Isidro Donaldson MD)
--- NOTE | 2017-12-13 17:09 | CT SCAN REPORT ---
EXAMINATION: CT CHEST WITHOUT CONTRAST CLINICAL INFORMATION: Hypoxia. Cough. COMPARISON: CT chest 02/13/2015. CT abdomen pelvis 04/20/2015 TECHNIQUE: Multidetector volumetric CT imaging of the chest was done. Axial MIP volume rendering provided. Sagittal and coronal reformatted images were obtained. DLP: 488.86 mGy-cm FINDINGS: LUNGS: There is a 3 mm nodule left upper lobe image 100 (5). There are a few fine subpleural reticular opacities at dependent lung of dependent atelectasis. There is a faint linear groundglass area of opacity in the right middle lobe adjacent to the major fissure axial image 291 (5) sagittal image 109, measuring 2 x 1 cm. This is new since CAT scan 02/13/2015. MEDIASTINUM: There is no mediastinal mass or lymphadenopathy. There is coronary artery calcifications present. There is no pericardial effusion. PLEURA: There is no pleural effusion. No pleural mass or thickening. AXILLA: No lymphadenopathy. UPPER ABDOMEN: Unremarkable. OSSEOUS STRUCTURES: There is degenerative spondylosis of the spine with multilevel disc height narrowing including vacuum disc phenomena and endplate spurring of the thoracic and upper lumbar spine. IMPRESSION: 1. Small groundglass opacity in the posterior right middle lobe subpleural lung. Measures about 2 x 1 cm. Consider follow-up CAT scan in 3 months. The Fleischner Society recommendations for incidental sub-solid pulmonary nodules are as follows: Solitary pure ground glass nodule < or = to 5 mm: No follow up needed. Solitary pure ground glass nodule > 5 mm: Follow up CT at 3 months; if unchanged, annual CT for at least 3 years. Solitary part-solid nodule: Follow up CT at 3 months; if persistent and solid component < 5 mm, annual CT for at least 3 years. If persistent and solid component > or = 5 mm, biopsy or resection. Multiple pure ground glass sub-solid nodules < or = to 5mm: CT at 2 and 4 years. Multiple pure ground glass sub-solid nodules > 5mm, no dominant lesion: Follow up CT at 3 months; if unchanged, annual CT for at least 3 years. Dominant nodule(s) with part-solid or solid component: Follow up CT at 3 months; if persistent, biopsy or resection.
[2017-12-13 17:39] LABS: ABSOLUTE BASOPHIL COUNT 0.1 /CUMM (0.0-0.2); ABSOLUTE EOSINOPHIL COUNT 0 /CUMM (0.0-0.7); ABSOLUTE GRANULOCYTE CT 5.9 /CUMM (1.4-6.5); ABSOLUTE LYMPH COUNT 1.7 /CUMM (1.2-3.4); ABSOLUTE MONOCYTE COUNT 0.6 /CUMM (0.10-0.60); BASOPHIL % 0.7 % (0.0-2.0); EOSINOPHIL % 0.1 % (0-5); GRANULOCYTE % 71.3 % (42.2-75.2); HEMATOCRIT 28.6 % (37-47); MEAN CORPUSCULAR HGB CONC 33.1 G/DL (33.0-37.0); MEAN CORPUSCULAR VOLUME 105.9 FL (81.0-99.0); MEAN PLATELET VOLUME 8.3 FL (7.4-10.4); PLATELET COUNT 304 /CUMM (130-400); RBC DISTRIBUTION WIDTH 16.2 % (11.5-14.5)
--- NOTE | 2017-12-13 17:58 | History & Physical ---
Lucas MATAMOROS,[facility] 12/13/17 7768: General Information and HPI MD Statement: I have seen and personally examined VILMA ALTMAN and documented this H&P. The patient is a 87 year old F who presented with a patient stated chief complaint of [shortness of breath]. Source of Information: family, old records Exam Limitations: clinical condition History of Present Illness: Mrs. Altman is an 87 years old lady with past medical history of hypertension, hyperlipidemia and atrial fibrillation on Coumadin who is presenting with chief complaint of shortness of breath The patient was seen early this morning in the emergency room for chief complaint of progressive shortness of breath and was not feeling well for 5 days , it started by sore throat associated with productive cough and increasing shortness of breath. patient was prescribed Vibramycin and was sent home. however she was brought back to the hospital by her son because she was complaining of increasing shortness of breath and productive cough of yellowish sputum. her oxygen saturation at home was 85%.In the ED her oxygen saturations dropped into the 60s after coming back from the CT and she was noted to be in respiratory distress, she was placed on BiPAP and administered continuous albuterol, 2 g magnesium. O2 saturation increased to 89-90 with bipap of note she Was recently discharged from [facility] after being treated for CAP in October 2017 ROS: her son said she didn't have any recent complains of chest pain,palpitation , LE swelling, orthopnea or PND. He also denied that she had any fever or chillis at home. No recent travel or sick contacts,No history of smoking, alcohol use, IV drug use, lives home and uses cane for ambulation, got her Pneumovax and flu vaccine this year Vital signs on admission: Temperature 98.9, pulse 74, respiratory 34, blood pressure 178/70 Labs on admission: Normal WBC 8.2, hemoglobin 9.5, platelets 304, mild hyponatremia sodium 132, potassium 4.2, creatinine 0.7, BUN 17, hyperglycemia glucose 314, serum osmolarity 307, calcium 8.3, INR was therapeutic 2.02, d-dimer 202 ABG on BiPAP: PH 7.42, PCO2 40, PO2 74, HCO3 [address]: Small groundglass opacity in the posterior right middle lobe subpleural lung. Measures about 2 x 1 cm. Doppler ultrasound lower extremity: negative Allergies/Medications Allergies: Coded Allergies: NO KNOWN ALLERGIES (07/17/12) Home Med list Albuterol Sulfate (Proair Hfa) 90 MCG HFA.AER.AD 2 PUF INH Q6 PRN BRONCHITIS Amlodipine (Norvasc) 2.5 MG TABLET 1 TAB PO QPM BP (Reported) Amlodipine Besylate (Norvasc) 5 MG TABLET 1 TAB PO QAM HTN (Reported) Amoxicillin 875 MG TABLET 1 TAB PO BID pneumonia TAKE DIRECTED Atorvastatin Calcium (Lipitor) 10 MG TABLET 1 TAB PO DAILY HLD (Reported) Azithromycin (Zithromax) 500 MG TABLET 1 TAB PO DAILY pneumonia TAKE DIRECTED Codeine Phosphate/Guaifenesi (Guaifenesin AC Cough Syrup) 10 MG-100 MG/5 ML LIQUID 1 TSP PO QPM PRN COUGH Doxycycline Hyclate (Vibramycin) 100 MG CAPSULE 1 CAP PO BID BRONCHITIS Levothyroxine Sodium (Synthroid) 50 MCG TABLET 1 TAB PO DAILY HYPOTHYROIDISM (Reported) Nadolol (Corgard) 20 MG TABLET 20 MG PO BID HTN (Reported) Rabeprazole Sodium (Aciphex) 20 MG TABLET.DR 1 TAB PO Wednesday GERD (Reported) Warfarin Sodium (Coumadin) 2 MG TABLET 1 TAB PO DAILY AFIB (Reported) Please hold for today and resume once INR is repeated. 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 Denies: chills, diaphoresis, fever. Cardiovascular: Denies: chest pain, edema, orthopena, palpitations, peripheral edema. Respiratory: Reports: cough, short of breath, sputum production. GI: Denies: no symptoms. Genitourinary: Denies: no symptoms. Musculoskeletal: Denies: no symptoms. Skin: Denies: no symptoms. Neurological/Psychological: Denies: no symptoms. Exam & Diagnostic Data Last 24 Hrs of Vital Signs/I&O Vital Signs Date Time Temp Pulse Resp B/P B/P Pulse O2 O2 Flow FiO2 Mean Ox Delivery Rate 12/13 185 97.8 68 18 109/53 99 BIPAP 90% 12/13 1753 99.0 74 26 154/69 96 BIPAP 100% 12/13 1702 74 34 178/70 93 BIPAP 100% 12/13 1700 92 BIPAP 100% 12/13 1650 98.9 74 34 178/70 12/13 1650 78 92 12/13 1621 26 92 Nasal 4.0L Cannula 12/13 162 98.9 78 26 188/91 81 Room Air 12/13 162 82 Room Air 12/13 162 92 Nasal 3.0L Cannula Physical Exam General Appearance Alert, Cooperative Skin small bed sore on her lower back stage 1 HEENT Atraumatic, PERRLA, EOMI Cardiovascular Normal S1, Normal S2 Lungs WIDE SPREAD WHEEZING Abdomen Normal Bowel Sounds, Soft, No Tenderness Neurological Strength at 5/5 X4 Ext, Normal Tone, Sensation Intact Extremities No Clubbing, No Cyanosis, No Edema Last 24 Hrs of Labs/Parish: Laboratory Tests 12/13/171908: Urine Color Pending, Urine Clarity Pending, Urine pH Pending, Ur Specific Aline Pending, Urine Protein Pending, Urine Ketones Pending, Urine Nitrite Pending, Urine Bilirubin Pending, Urine Urobilinogen Pending, Ur Leukocyte Esterase Pending, Ur Microscopic SEDIMENT EXAMINED, Urine RBC Pending, Urine Hemoglobin Pending, Urine Glucose Pending 12/13/171908: Urine Osmolality 349, Ur Random Creatinine Pending, Ur Random Sodium Pending, Ur Random Potassium Pending, Fraction Sodium Excret Pending 12/13/17 1835: pH 7.42, pCO2 40, pO2 74 L, HCO3 25, ABG O2 Sat (Measured) 94.0 L, P-50 (Temp Corrected) N, Carboxyhemoglobin 0.3 L, O2 Concentration % 90%, Temperature 99.0 , Respiration Rate 26, O2 Delivery Method BIPAP, Vent Mode ST, Expiratory Pressure 6, Inspiratory Pressure 20, Phlebotomy Draw Site RIGHT RADIAL 12/13/17 175: D-Dimer High Sensitivty Cancelled 12/13/17 1731: Anion Gap 7, Estimated GFR > 60, BUN/Creatinine Ratio 24.3, Glucose 314 H, Serum Osmolality 307 H, Calcium 8.3 L, Total Bilirubin 1.0, AST 35, ALT 25, Alkaline Phosphatase 61, Troponin I < 0.01, Total Protein 7.4, Albumin 4.2, Globulin 3.2, Albumin/Globulin Ratio 1.3, TSH Pending, Free T4 Pending, PT 22.2 H, INR 2.02 H, APTT 28, D-Dimer High Sensitivty Pending, CBC w Diff NO MAN DIFF REQ, RBC 2.70 L, MCV 105.9 H, MCH 35.0 H, MCHC 33.1, RDW 16.2 H, MPV 8.3, Gran % 71.3, Lymphocytes % 20.2 L, Monocytes % 7.7, Eosinophils % 0.1, Basophils % 0.7, Absolute Granulocytes 5.9, Absolute Lymphocytes 1.7, Absolute Monocytes 0.6, Absolute Eosinophils 0, Absolute Basophils 0.1, HIV 1&2 Ab Western Blot Pending Microbiology 12/13 192 UPPER RESP: Surveillance Culture - ORD 12/13 192 GI: Surveillance Culture - ORD 12/13 1909 URINE ROUT: Urine Culture - RECD 12/13 184 LOWER RESP: Respiratory Culture - ORD 12/13 184 LOWER RESP: Gram Stain - ORD 12/13 1740 BLOOD: Blood Culture - RECD 12/13 1728 BLOOD: Blood Culture - RECD Diagnostic Data EKG Results EKG NSR heart rate 75, CO 162, QTc 420, LVH nonspecific STT wave changes Other Results CT chest:1. Small groundglass opacity in the posterior right middle lobe subpleural lung. Measures about 2 x 1 cm. Consider follow-up CAT scan in 3 months. The Fleischner Society recommendations for incidental sub-solid pulmonary nodules are as follows: Solitary pure ground glass nodule < or = to 5 mm: No follow up needed. Solitary pure ground glass nodule > 5 mm: Follow up CT at 3 months; if unchanged, annual CT for at least 3 years. Solitary part-solid nodule: Follow up CT at 3 months; if persistent and solid component < 5 mm, annual CT for at least 3 years. If persistent and solid component > or = 5 mm, biopsy or resection. Multiple pure ground glass sub-solid nodules < or = to 5mm: CT at 2 and 4 years. Multiple pure ground glass sub-solid nodules > 5mm, no dominant lesion: Follow up CT at 3 months; if unchanged, annual CT for at least 3 years. Dominant nodule(s) with part-solid or solid component: Follow up CT at 3 months; if persistent, biopsy or resection. Assessment/Plan Assessment: Mrs. Altman is an 87 years old lady with past medical history of hypertension, hyperlipidemia and atrial fibrillation on Coumadin who is presenting with chief complaint of shortness of breath The patient was seen early this morning in the emergency room for chief complaint of progressive shortness of breath and was not feeling well for 5 days , it started by sore throat associated with productive cough and increasing shortness of breath.In the ED her oxygen saturations dropped into the 60s after coming back from the CT and she was noted to be in respiratory distress, she was placed on BiPAP and administered continuous albuterol, 2 g magnesium. O2 saturation increased to 89-90 with bipap. Of note the patient was recently discharged from [facility] for treatment of community-acquired pneumonia on 10/05/17. Which puts her at increasing risk of HCAP Patient was afebrile with normal WBC count, she did not meet any of the SIRS criteria for sepsis on admission, in addition she is currently on Coumadin, D dimer and doppler U/S are negative which R/O PE. Her CT only showed multiple groundglass nodules. The patient symptoms are most likely due to acute hypoxic respiratory failure secondary to community-acquired pneumonia. The patient was also found to be hypertensive and blood pressure improved after taking 1 dose of IV enalapril, Lasix 40 mg IV once, magnesium sulfate Problem list: Acute hypoxic respiratory failure: (most likely due to HCAP, patient improved on BiPAP, ABG does not show any acidosis or CO2 retention). D-dimer negative Admitted the patient to ICU TRC BiPAP Albuterol inhaler as needed Healthcare acquired pneumonia: (the patient was recently discharged from [facility] on October 05 STEMI treated for community-acquired pneumonia which puts her at high risk of HCAP) IV vancomycin and Ceftaz Prednisone 40 mg p.o. daily Follow-up on pending cultures, strep pneumonia, Legionella Follow-up chest x-ray in the a.m. Atrial fibrillation on Coumadin INR is therapeutic) will dose coumadin 2 mg tonight Daily INR and dose Coumadin to maintain therapeutic range Continue home medication nadolol 20 mg daily and Norvasc 5 mg daily New Right bundle branch block with nonspecific STT wave changes Serial troponin and EKG to rule out ACS Cardiology consult appreciated Hypertensive urgency: (on admission blood pressure was 188/91 improved after IV Lasix, enalapril, magnesium sulfate to 109/53) With hold off antihypertensive home meds tonight Continue Norvasc 5 mg Daily and Cogard of 20 mg bid daily starting tomorrow if blood pressure allows History of chronic medical conditions including hypothyroidism, hyperlipidemia: Continue home meds Hyperglycemia: (blood sugar on admission 314) no Hx of DM Monitor blood sugar with fingerstick glucose every 6 hours Mild hyponatremia: sodium 132, will rule out Legionella Monitor BEP Chronic microcytic anemia: H&H at baseline Folate and B12 recently checked in October 2017 and was normal Continue to monitor Patient is full code Coumadin for DVT prophylaxis NPO As Ranked By This Provider Problem List: 1. Respiratory failure 2. Pneumonia Core Measures/Misc (01/17) Acute Coronary Syndrome ACS Diagnosis: No Congestive Heart Failure Congestive Heart Failure Diagnosis No Cerebrovascular Accident CVA/TIA Diagnosis: No VTE (View Protocol) VTE Risk Factors Age>40 No Mechanical VTE Prophylaxis d/t N/A MechProphylax Ordered No VTE Pharm Prophylaxis d/t NA PharmProphylax ordered Sepsis (View protocol) Sepsis Present: Yes If YES complete Sepsis Event Note If YES complete Sepsis Event Note Gallo Null MD 12/13/17 1069: Core Measures/Misc (01/17) Sepsis (View protocol) If YES complete Sepsis Event Note If YES complete Sepsis Event Note Attending MD Review Statement Attending Statement Attending MD Statement: examined this patient, discuss w/resident/PA/SCHOLASTIC APTITUDE TEST GRADER, agreed w/resident/PA/SCHOLASTIC APTITUDE TEST GRADER, discussed with family Attending Assessment/Plan: Patient is seen and examined independently by me. Care plan discussed with biomedical scientist and resident. I agree with the physical exam findings and plan of care as outlined above with the following changes and additions. 87 yo F with history of A fib on Coumadin, HTN, HLD, hypothyroidism, GERD, spinal stenosis, presented with 5 days of increasing SOB and cough. She started out with sore throat, cough with white sputum and some SOB 5 days ago. She has increasing SOB, cough with sputum changed to yellow color in last day. She has chills but denies fever, chest pain, abdominal pain, nausea, vomiting, diarrhea or dysuria. Patient was in the ED at about 1 am this morning. CXR shows hyperinflation of lungs and no acute consolidation or edema. Her O2 sat was 93% on RA. WBC 4.9. Troponin <0.01. She was discharged home on doxycycline. By lunch time, she has increasing SOB. She did not choke or aspirate when she had lunch. O2 sat note to be 85% on RA at home. Her son brought her back to the ED. Of note, patient's and had recently but denies sick contact. No recent travel. She got Pneumovax in May 2017 and Flu vaccine in Jan 2017. Patient was last admitted 10/03-10/07/17 for CAP, treated with ceftriaxone and azithromycin and discharged on Amoxicillin and Azithromycin. In the ED, patient is afebrile. O2 sat as low as 60's on RA. She was placed on Bipap mask. Post Bipap ABG shows 7.42/40/74/25/94%. On lung exam, she has mild wheezing with right basal rhonchi (but she has poor inspiratory effort due to the feeling of cough). WBC 8.2 (4.9 earlier in the first ED visit). INR 2.02. D-dimer 202. Na 132. Glucose 314. TSH 2.43, free T4 1.43. CT chest shows small posterior RML groundglass opacity. Doppler of bilateral LE shows no acute DVT. EKG shows NSR at 75 with LVH and new RBBB. Initial BP 188/91 and got enalapril 1.25 mg IV x1, Lasix 40 mg IV x1 and NTP 1" x1 in the ED. She also got Solumedrol 125 mg IV, albuterol neb x3, Mag 2 g IV and ceftriaxone 1 g IV in the ED. Patient is admitted to ICU for acute hypoxic respiratory failure with early HCAP. Mild hyponatremia probably related to pneumonia. New RBBB. Check cultures, urine Leg Ag. Continue Bipap and follow ABG. Start Prednisone 40 mg daily, albuterol prn, vanco and ceftaz. Pulmonary consult. She is noted to have new RBBB on EKG. Cardiac monitoring. Check serial troponin/ EKG. Cardiology consult. Redose Coumadin for A fib and follow INR. Gallo Null MD FACP
[2017-12-13 18:03] LABS: WHITE BLOOD CELL COUNT 8.2 /CUMM (4.8-10.8)
[2017-12-13 18:08] LABS: PT 22.2 SEC (9.4-12.5); PTT 28 SEC (25-37)
--- NOTE | 2017-12-13 20:59 | ULTRASOUND REPORT ---
EXAMINATION: US TRIPLEX OF LOWER EXTREMITIES, BILATERAL CLINICAL INFORMATION: Desaturation on BiPAP with respiratory failure COMPARISON: None TECHNIQUE: Color-flow triplex imaging with spectral analysis and compression Doppler were performed on the lower extremities. FINDINGS: Respiratory variation, normal compression and augmented flow are noted throughout the lower extremities. The visualized common femoral vein, superficial femoral vein, profunda femoral vein, popliteal vein and midcalf peroneal and posterior tibial venous segments show no evidence of deep venous thrombosis. There is no Narvaez's cyst. IMPRESSION: No evidence of deep venous thrombosis involving the bilateral lower extremities.
[2017-12-13 21:00] VITALS: BP 112/50
[2017-12-14] VITALS: BP 92/60
[2017-12-14 04:10] LABS: ABSOLUTE BASOPHIL COUNT 0 /CUMM (0.0-0.2); ABSOLUTE EOSINOPHIL COUNT 0 /CUMM (0.0-0.7); ABSOLUTE GRANULOCYTE CT 2.5 /CUMM (1.4-6.5); ABSOLUTE LYMPH COUNT 0.3 /CUMM (1.2-3.4); ABSOLUTE MONOCYTE COUNT 0.2 /CUMM (0.10-0.60); BASOPHIL % 0 % (0.0-2.0); EOSINOPHIL % 0.1 % (0-5); GRANULOCYTE % 82.7 % (42.2-75.2); HEMATOCRIT 25.5 % (37-47); MEAN CORPUSCULAR HGB 34.8 PG (27.0-31.0); MEAN CORPUSCULAR HGB CONC 33.7 G/DL (33.0-37.0); MEAN CORPUSCULAR VOLUME 103.4 FL (81.0-99.0); MEAN PLATELET VOLUME 8.3 FL (7.4-10.4); PLATELET COUNT 237 /CUMM (130-400); RBC DISTRIBUTION WIDTH 16.1 % (11.5-14.5); RED BLOOD CELL CT 2.47 /CUMM (4.20-5.40)
[2017-12-14 04:17] LABS: PT 25.7 SEC (9.4-12.5)
--- NOTE | 2017-12-14 07:18 | Cons- CRCU ---
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 She started out with sore throat, cough with white sputum and some SOB 5 days ago. She has increasing SOB, cough with sputum changed to yellow color in last day. She denied fever, chest pain, abdominal pain, nausea, vomiting, diarrhea or dysuria. Patient was in the ED this morning. CXR shows hyperinflation of lungs and no acute consolidation or edema. Her O2 sat was 93% on RA. WBC 4.9. Troponin <0.01. She was discharged home on doxycycline. By lunch time, she has increasing SOB. O2 sat note to be 85% on RA at home. Her son brought her back to the ED. Patient was last admitted 10/03-10/07/17 for CAP, treated with ceftriaxone and azithromycin and discharged on Amoxicillin and Azithromycin. In the ED, patient is afebrile. O2 sat as low as 60's on RA. She was placed on Bipap mask. Post Bipap ABG shows 7.42/40/74/25/94%. Allergies/Medications Allergies: Coded Allergies: NO KNOWN ALLERGIES (07/17/12) Home Med List: Albuterol Sulfate (Proair Hfa) 90 MCG HFA.AER.AD 2 PUF INH Q6 PRN BRONCHITIS Amlodipine (Norvasc) 2.5 MG TABLET 1 TAB PO QPM BP (Reported) Amlodipine Besylate (Norvasc) 5 MG TABLET 1 TAB PO QAM HTN (Reported) Amoxicillin 875 MG TABLET 1 TAB PO BID pneumonia TAKE DIRECTED Atorvastatin Calcium (Lipitor) 10 MG TABLET 1 TAB PO DAILY HLD (Reported) Azithromycin (Zithromax) 500 MG TABLET 1 TAB PO DAILY pneumonia TAKE DIRECTED Codeine Phosphate/Guaifenesi (Guaifenesin AC Cough Syrup) 10 MG-100 MG/5 ML LIQUID 1 TSP PO QPM PRN COUGH Doxycycline Hyclate (Vibramycin) 100 MG CAPSULE 1 CAP PO BID BRONCHITIS Levothyroxine Sodium (Synthroid) 50 MCG TABLET 1 TAB PO DAILY HYPOTHYROIDISM (Reported) Nadolol (Corgard) 20 MG TABLET 20 MG PO BID HTN (Reported) Rabeprazole Sodium (Aciphex) 20 MG TABLET.DR 1 TAB PO Wednesday GERD (Reported) Warfarin Sodium (Coumadin) 2 MG TABLET 1 TAB PO DAILY AFIB (Reported) Please hold for today and resume once INR is repeated. Dosed per INR Review of Systems Review of Systems Constitutional: Denies: chills, fever. EENTM: Reports: no symptoms. Cardiovascular: Denies: chest pain, orthopena, palpitations, syncope. Respiratory: Reports: cough. Denies: wheezing. GI: Denies: abdominal pain, constipation, diarrhea, nausea, vomiting. Genitourinary: Reports: no symptoms. Musculoskeletal: Reports: no symptoms. Neurological/Psychological: Reports: no symptoms. 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 Home Services at Home: Nursing, Physical Therapy Smoking Status: Never Smoked ETOH Use: occasional use Illicit Drug Use: denies illicit drug use Exam & Diagnostic Data Last 24 Hrs of Vital Signs/I&O Vital Signs Date Time Temp Pulse Resp B/P B/P Pulse O2 O2 Flow FiO2 Mean Ox Delivery Rate 12/14 0753 99 Nasal 50% Cannula 12/14 0735 62 99 12/14 0623 61 98 12/14 0400 97 BIPAP 50% 12/14 0257 59 99 12/14 0056 78 98 12/14 0000 98 BIPAP 65% 12/14 0000 97.9 83 27 92/60 98 BIPAP 65% 12/13 2220 60 98 12/13 2121 BIPAP 75% 12/13 2100 100 BIPAP 75% 12/13 2100 98.0 68 26 112/50 100 BIPAP 75% 12/13 2021 65 20 120/59 100 BIPAP 90% 12/13 1857 97.8 68 18 109/53 99 BIPAP 90% 12/13 1754 99.0 74 26 154/69 96 BIPAP 100% 12/13 1702 74 34 178/70 93 BIPAP 100% 12/13 1700 92 BIPAP 100% 12/13 1650 98.9 74 34 178/70 12/13 1650 78 92 12/13 1621 26 92 Nasal 4.0L Cannula 12/13 162 98.9 78 26 188/91 81 Room Air 12/14 1619 82 Room Air 12/14 1619 92 Nasal 3.0L Cannula Intake & Output 12/14 1600 12/14 0800 12/14 0000 Intake Total 120 560 Output Total 400 2150 Balance -280 -1590 Intake, IV 0 560 Intake, Oral 120 Number 0 0 Bowel Movements Output, Urine 400 2150 Patient 161 lb Weight Weight Bed scale Measurement Method Physical Exam General Appearance: well developed/nourished, no apparent distress, alert, awake Head: atraumatic, normal appearance Neck: normal inspection, supple Respiratory: normal breath sounds, chest non-tender Cardiovascular: regular rate/rhythm Gastrointestinal: normal bowel sounds, soft, non-tender Extremities: normal inspection, no edema Neurologic/Psych: no motor/sensory deficits, awake, alert Last 48 Hrs of Labs/Parish: Laboratory Tests 12/14/17 0855: Lactic Acid 1.2 12/14/17 0600: pH 7.46 H, pCO2 40, pO2 89, HCO3 28, ABG O2 Sat (Measured) 97.0, P-50 (Temp Corrected) N, Carboxyhemoglobin 0.1 L, O2 Concentration % .50, Respiration Rate 26, O2 Delivery Method BIPAP, Vent Mode ST, Expiratory Pressure 6, Inspiratory Pressure 20, Phlebotomy Draw Site RIGHT RADIAL 12/14/17 0345: Troponin I 0.06 12/14/17 0345: Triglycerides 54, Cholesterol 146, LDL Cholesterol, Calc 60 L, HDL Cholesterol 76 H, Cholesterol/HDL Ratio 2, Cortisol AM Sample 8.8 12/14/17 0345: Anion Gap 9, Estimated GFR > 60, Glucose 141 H, Calcium 8.2 L, Phosphorus 5.2 H, Magnesium 2.2, Total Bilirubin 0.7, AST 28, ALT 30, Rpv-Q-Yhszhksezqo Pept 3060 H, Albumin 3.8, PT 25.7 H, INR 2.34 H, CBC w Diff NO MAN DIFF REQ, RBC 2.47 L, MCV 103.4 H, MCH 34.8 H, MCHC 33.7, RDW 16.1 H, MPV 8.3, Gran % 82.7 H, Lymphocytes % 11.7 L, Monocytes % 5.5, Eosinophils % 0.1, Basophils % 0, Absolute Granulocytes 2.5, Absolute Lymphocytes 0.3 L, Absolute Monocytes 0.2, Absolute Eosinophils 0, Absolute Basophils 0 12/13/17 2213: Troponin I 0.07 12/13/171908: Urine Color YEL, Urine Clarity CLEAR, Urine pH 6.0, Ur Specific [place] 1.020, Urine Protein 30 H, Urine Ketones NEG, Urine Nitrite NEG, Urine Bilirubin NEG, Urine Urobilinogen 0.2, Ur Leukocyte Esterase NEG, Ur Microscopic SEDIMENT EXAMINED, Urine RBC 15-25 H, Urine WBC 1-3 H, Ur Epithelial Cells RARE, Urine Hemoglobin SMALL H, Urine Glucose 250 H 12/13/171908: Urine Osmolality 349, Ur Random Creatinine 10.6, Ur Random Sodium 161 H, Ur Random Potassium 11.9, Fraction Sodium Excret 8.1 H 12/13/17 1835: pH 7.42, pCO2 40, pO2 74 L, HCO3 25, ABG O2 Sat (Measured) 94.0 L, P-50 (Temp Corrected) N, Carboxyhemoglobin 0.3 L, O2 Concentration % 90%, Temperature 99.0 , Respiration Rate 26, O2 Delivery Method BIPAP, Vent Mode ST, Expiratory Pressure 6, Inspiratory Pressure 20, Phlebotomy Draw Site RIGHT RADIAL 12/13/17 1757: D-Dimer High Sensitivty Cancelled 12/13/17 1731: Anion Gap 7, Estimated GFR > 60, BUN/Creatinine Ratio 24.3, Glucose 314 H, Serum Osmolality 307 H, Calcium 8.3 L, Total Bilirubin 1.0, AST 35, ALT 25, Alkaline Phosphatase 61, Troponin I < 0.01, Total Protein 7.4, Albumin 4.2, Globulin 3.2, Albumin/Globulin Ratio 1.3, TSH 2.430, Free T4 1.43, PT 22.2 H, INR 2.02 H, APTT 28, D-Dimer High Sensitivty 202, CBC w Diff NO MAN DIFF REQ, RBC 2.70 L, MCV 105.9 H, MCH 35.0 H, MCHC 33.1, RDW 16.2 H, MPV 8.3, Gran % 71.3, Lymphocytes % 20.2 L, Monocytes % 7.7, Eosinophils % 0.1, Basophils % 0.7 , Absolute Granulocytes 5.9, Absolute Lymphocytes 1.7, Absolute Monocytes 0.6, Absolute Eosinophils 0, Absolute Basophils 0.1, HIV 1&2 Ab Western Blot NONREACTIVE Microbiology 12/13 1840 URINE ROUT: Legionella Antigen - COMP 12/13 1840 URINE ROUT: Streptococcus pneumoniae Antigen (M - COMP Assessment/Plan CRCU Impression/Plan: 87 years old lady with past medical history of hypertension, hyperlipidemia and atrial fibrillation on Coumadin who is presenting with chief complaint of shortness of breath. Patient was seen earlier yesterday morning in ED with chief complaint of progressive worsening of shortness of breath that started after sore throat with productive cough. Patient was prescribed antibiotic and was sent home but later in the afternoon she was brought in again as her shortness of breath was worsening. In ED her oxygen saturation was dropping to 60s by coming back from radiology department after CT scan. Patient was placed on BiPAP and she was given albuterol and 2 g of magnesium. Patient was recently discharged from [facility] after treatment of community-acquired pneumonia on 10/05/2017 that put her high risk for hospital-acquired pneumonia. Problem list: Acute hypoxic respiratory failure possibly due to HCAP Probable tracheobronchitis History of Paroxysmal atrial fibrillation on Coumadin. History of Essential hypertension History of Hyperlipidemia History of GERD History of Chronic incomplete right bundle branch block Mild AI and MR on echocardiogram 2014 with normal LV function EF 60% Acute hypoxic respiratory failure due to pneumonia: -Possibly due to HCAP as patient was recently discharged after being treated for pneumonia that put her at risk of Hcap. -Continue high flow oxygen and maintaining saturation above 92% -Continue BiPAP as needed -Continue ceftaz and vancomycin -Holding her IV fluids to prevent fluid overload. -Continue prednisone 40mg daily and then quick taper it. -Her venous doppler remained negative for DVT. -Continue TRC nebulization -Follow-up sputum cultures EKG changes: -Patient has incomplete right bundle branch block and left anterior fascicular block. -Her trops remained negative. -Her last echocardiogram showed ejection fraction 60% . We will repeat echocardiogram as recommended by cardiology. History of paroxysmal A. fib: -Continue Coumadin 2mg and check INR -INR today 2.34 -Continue nadolol. History of hypertension and hyperlipidemia: -Continue nadolol and Norvasc -Continue Lipitor History of hypothyroidism: -Continue levothyroxine DVT prophylaxis: Mechanical and on coumadin already. CODE STATUS: Full code Problem List: 1. Acute respiratory failure with hypoxia 2. Pneumonia Consult Acknowledgment - Thank you for your consult request. Maria Isabel Saucedo MD 12/14/17 0739: General Information and HPI Consulting Request Date of Consult: 12/14/17 Requested By: Dr. Null Reason for Consult: Respiratory failure Source of Information: patient, old records Exam Limitations: no limitations Allergies/Medications Current Medications: Current Medications Sig/Yanni Start time Last Medication Dose Route Stop Time Status Admin Acetaminophen 650 MG Q6P PRN 12/13 181 AC PO Acetaminophen 1,000 MG Q6P PRN 12/13 181 AC IV Albuterol Sulfate 3 ML EVERY 4 HRS/AWAKE 12/15 799 AC INH Albuterol Sulfate 2 PUF Q4P PRN 12/13 2014 AC INH Albuterol Sulfate 3 ML ONCE ONE 12/13 1715 DC 12/13 INH 12/13 1716 1700 Albuterol Sulfate 3 ML ONCE ONE 12/13 1715 DC 12/13 INH 12/13 1716 1700 Albuterol Sulfate 3 ML ONCE ONE 12/13 1715 DC 12/13 INH 12/13 1716 1700 Albuterol Sulfate 3 ML ONCE ONE 12/13 1630 DC 12/13 INH 12/13 1631 1620 Amlodipine Besylate 2.5 MG QPM 12/14 2100 CAN PO Atorvastatin Calcium 10 MG DAILY 12/14 09 AC PO Azithromycin 500 MG DAILY 12/14 0900 CAN Sodium Chloride 250 ML IV Azithromycin 500 MG ONCE ONE 12/13 1730 DC 12/13 Sodium Chloride 250 ML IV 12/13 1829 1753 Ceftazidime 1,000 MG Q12 12/14 0900 DC IV Ceftazidime 1,000 MG Q12 12/13 2100 DC IV Ceftazidime 1,000 MG Q12 12/13 2100 AC 12/13 IV 2204 Ceftriaxone Sodium 1,000 MG DAILY 12/14 0900 CAN IV Ceftriaxone Sodium 0 .STK-MED ONE 12/13 1748 DC .ROUTE Ceftriaxone Sodium 1,000 MG ONCE ONE 12/13 1730 DC 12/13 IV 12/13 1731 1753 Enalaprilat 1.25 MG ONCE ONE 12/13 1715 DC 12/13 IV 12/13 1716 1650 Enalaprilat 0 .STK-MED ONE 12/13 1701 DC IV Furosemide 40 MG ONCE ONE 12/13 1715 DC 12/13 IV 12/13 1716 1645 Furosemide 0 .STK-MED ONE 12/13 1650 DC IV Ipratropium [place] 2.5 ML ONCE ONE 12/13 1630 DC 12/13 INH 12/13 1631 1620 Levothyroxine Sodium 0.05 MG DAILY AC 12/14 0700 AC 12/14 PO 0619 Magnesium Sulfate 1 GM Q2H 12/13 1715 DC 12/13 Dextrose/Water 100 ML IV 12/13 2114 1720 Methylprednisolone 0 .STK-MED ONE 12/13 1650 DC .ROUTE Methylprednisolone 0 .STK-MED ONE 12/13 1646 DC .ROUTE Methylprednisolone 125 MG ONCE ONE 12/13 1630 DC 12/13 IV 12/13 1631 1645 Nadolol 20 MG BID 12/14 0900 AC PO Nadolol 20 MG BID 12/13 2100 DC PO Nitroglycerin 1 GM ONCE ONE 12/13 1715 DC 12/13 TOP 12/13 1716 1650 Nitroglycerin 0 .STK-MED ONE 12/13 1701 DC TOP Potassium Chloride 20 MEQ ONCE ONE 12/14 0730 DC PO 12/14 0731 Prednisone 40 MG DAILY 12/14 0900 AC PO Vancomycin HCl 1,000 MG DAILY 12/14 0900 DC Sodium Chloride 250 ML IV Vancomycin HCl 1,000 MG DAILY 12/13 2100 AC 12/13 Sodium Chloride 250 ML IV 2204 Warfarin Sodium 2 MG COUMADIN 1700 ONE 12/13 2115 DC 12/13 PO 12/13 211 2239 Assessment/Plan CRCU Other Findings/Comments: I have personally seen and examined the patient, and agree with the resident's assessment and plan as detailed above. Briefly, the patient is an 87-year-old female with a past medical history significant for atrial fibrillation on Coumadin, hypertension, hyperlipidemia, hypothyroidism, GERD, and spinal stenosis. The patient was recently admitted from 10/03 -10/07 for community-acquired pneumonia, treated with ceftriaxone and azithromycin. She was discharged on amoxicillin and azithromycin. She was compliant with her antibiotic course. The patient has no history of BiPAP therapy or mechanical ventilation in the past. Cultures from her recent admission were negative. The patient presented with a 5 day history of increasing shortness of breath and cough. Her cough is congested and her sputum has changed to yellow in color. There is no report of hemoptysis. The patient had no orthopnea, chest pain, fever, chills, abdominal pain, nausea, vomiting or urinary symptoms. 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 Her chest x-ray showed no consolidation or edema. Her room air saturation was 93% with a white blood cell count of 4.3 and a negative troponin. The patient was thought to have a bronchitis and was discharged on doxycycline. She did not improve with the treatment. As per the chart, the patient was monitoring her oxygen saturation at home which was 85% on room air. She was brought back to the ED for evaluation. The patient was found to have an oxygen saturation in the 60s on room air, and the patient was placed on BiPAP for respiratory distress. ABG at that time showed a pH of 7.42, PCO2 40, PO2 74, bicarb 25, oxygen saturation 94% while on BiPAP on 100% oxygen. The patient's white blood cell count was 8.2, INR 2.02, d-dimer 202, glucose 314, TSH 2.43, and sodium 132. CT chest showed small posterior right middle lobe groundglass opacity. Lower extremity Dopplers were negative for DVT. EKG showed a new right bundle branch block. The patient was initially hypertensive and received enalapril and Nitropaste with good results. She also received Solu-Medrol for bronchospasm. The patient was admitted to the ICU on BiPAP, for acute hypoxic respiratory failure and early healthcare associated pneumonia. At present, the patient is awake and alert. She is on BiPAP. She reports feeling improved overall. Her oxygenation requirement has improved and she is down to 50%. There are no further complaints reported. Impression: 1. Acute hypoxemic respiratory failure likely secondary to pneumonia, possibly healthcare associated pneumonia in the setting of recent hospitalization. 2. Probable tracheobronchitis. 3. Acute bronchospasm, contributing to respiratory failure. 4. Atrial fibrillation, on Coumadin, with a therapeutic INR. 5. History of hypothyroidism. 6. GERD. 7. Hyponatremia. 8. Macrocytic anemia, no evidence of bleeding. 9. New right bundle branch block. Plan: * Check lactic acid for sepsis protocol. * Check a BNP. * Hold off on IV fluids due to hemodynamic stability and possible volume overload. * Change from BiPAP over to high flow. * Oxygen for saturations greater than 92%. * Continue nebs/total respiratory care. * Check a swallowing evaluation. * Advance diet as tolerated. * Follow-up culture results. * Check urine for strep pneumo and Legionella. * Continue vancomycin and ceftazidime until culture data is available. * Continue prednisone 40 mg daily. Will taper off rapidly. * Guaiac stool, monitor for bleeding. * Cardiology consult for new right bundle branch block. * Dose Coumadin for therapeutic INR. * DVT prophylaxis at all timeson Coumadin. * Continue all supportive care. * I discussed the plan of care with the housestaff and the patient's son at the bedside. I asked to be contacted should the patient's condition change or if there are any questions. Consult Acknowledgment - Thank you for your consult request.
[2017-12-14 08:00] VITALS: BP 122/64
--- NOTE | 2017-12-14 08:50 | Cons- Cardiology ---
General Information and HPI Consulting Request Date of Consult: 12/14/17 Requested By: Maria Isabel Saucedo MD Reason for Consult: PAF Source of Information: patient, old records Exam Limitations: no limitations History of Present Illness: The patient is an 87-year-old female with history of hypertension, Paroxysmal atrial fibrillation on Coumadin, dyslipidemia, who now presents with increasing shortness of breath and cough. She was recently hospitalized with pneumonia which was treated. Patient was discharged but over the past approximately 5 days she noted increasing shortness of breath along with cough. She was seen in the emergency room and prescribed Vibramycin. She was discharged but became increasingly dyspneic and hypoxic with an O2 sat of 85% on room air at home. Her son then brought her back to the emergency room for reevaluation. She was placed on BiPAP with improvement in her O2 saturation. From a cardiac standpoint she did develop brief paroxysmal atrial fibrillation last evening. She denies chest discomfort. Her most recent echocardiograms performed in 2014 demonstrating ejection fraction 60% with mild AI and mild MR. Allergies/Medications Allergies: Coded Allergies: NO KNOWN ALLERGIES (07/17/12) Home Med List: Albuterol Sulfate (Proair Hfa) 90 MCG HFA.AER.AD 2 PUF INH Q6 PRN BRONCHITIS Amlodipine (Norvasc) 2.5 MG TABLET 1 TAB PO QPM BP (Reported) Amlodipine Besylate (Norvasc) 5 MG TABLET 1 TAB PO QAM HTN (Reported) Amoxicillin 875 MG TABLET 1 TAB PO BID pneumonia TAKE DIRECTED Atorvastatin Calcium (Lipitor) 10 MG TABLET 1 TAB PO DAILY HLD (Reported) Azithromycin (Zithromax) 500 MG TABLET 1 TAB PO DAILY pneumonia TAKE DIRECTED Codeine Phosphate/Guaifenesi (Guaifenesin AC Cough Syrup) 10 MG-100 MG/5 ML LIQUID 1 TSP PO QPM PRN COUGH Doxycycline Hyclate (Vibramycin) 100 MG CAPSULE 1 CAP PO BID BRONCHITIS Levothyroxine Sodium (Synthroid) 50 MCG TABLET 1 TAB PO DAILY HYPOTHYROIDISM (Reported) Nadolol (Corgard) 20 MG TABLET 20 MG PO BID HTN (Reported) Rabeprazole Sodium (Aciphex) 20 MG TABLET.DR 1 TAB PO Wednesday GERD (Reported) Warfarin Sodium (Coumadin) 2 MG TABLET 1 TAB PO DAILY AFIB (Reported) Please hold for today and resume once INR is repeated. Dosed per INR Current Medications: Current Medications Sig/Yanni Start time Last Medication Dose Route Stop Time Status Admin Acetaminophen 650 MG Q6P PRN 12/13 1815 AC PO Acetaminophen 1,000 MG Q6P PRN 12/13 1815 AC IV Albuterol Sulfate 3 ML EVERY 4 HRS/AWAKE 12/14 0800 AC 12/14 INH 0750 Albuterol Sulfate 2 PUF Q4P PRN 12/13 2014 AC INH Albuterol Sulfate 3 ML ONCE ONE 12/13 1715 DC 12/13 INH 12/13 1716 1700 Albuterol Sulfate 3 ML ONCE ONE 12/13 1715 DC 12/13 INH 12/13 1716 1700 Albuterol Sulfate 3 ML ONCE ONE 12/13 1715 DC 12/13 INH 12/13 1716 1700 Albuterol Sulfate 3 ML ONCE ONE 12/13 1630 DC 12/13 INH 12/13 1631 1620 Amlodipine Besylate 2.5 MG QPM 12/14 2100 CAN PO Atorvastatin Calcium 10 MG DAILY 12/14 0900 AC PO Azithromycin 500 MG DAILY 12/14 0900 CAN Sodium Chloride 250 ML IV Azithromycin 500 MG ONCE ONE 12/13 1730 DC 12/13 Sodium Chloride 250 ML IV 12/13 1829 1753 Ceftazidime 1,000 MG Q12 12/14 0900 DC IV Ceftazidime 1,000 MG Q12 12/13 2100 DC IV Ceftazidime 1,000 MG Q12 12/13 2100 AC 12/13 IV 2204 Ceftriaxone Sodium 1,000 MG DAILY 12/14 0900 CAN IV Ceftriaxone Sodium 0 .STK-MED ONE 12/13 1748 DC .ROUTE Ceftriaxone Sodium 1,000 MG ONCE ONE 12/13 1730 DC 12/13 IV 12/13 1731 1753 Enalaprilat 1.25 MG ONCE ONE 12/13 1715 DC 12/13 IV 12/13 1716 1650 Enalaprilat 0 .STK-MED ONE 12/13 1701 DC IV Furosemide 40 MG ONCE ONE 12/13 1715 DC 12/13 IV 12/13 1716 1645 Furosemide 0 .STK-MED ONE 12/13 1650 DC IV Ipratropium [place] 2.5 ML ONCE ONE 12/13 1630 DC 12/13 INH 12/13 1631 1620 Levothyroxine Sodium 0.05 MG DAILY AC 12/14 0700 AC 12/14 PO 0619 Magnesium Sulfate 1 GM Q2H 12/13 1715 DC 12/13 Dextrose/Water 100 ML IV 12/13 2113 1720 Methylprednisolone 0 .STK-MED ONE 12/13 1650 DC .ROUTE Methylprednisolone 0 .STK-MED ONE 12/13 1646 DC .ROUTE Methylprednisolone 125 MG ONCE ONE 12/13 1630 DC 12/13 IV 12/13 1631 1645 Nadolol 20 MG BID 12/14 09 AC PO Nadolol 20 MG BID 12/13 2100 DC PO Nitroglycerin 1 GM ONCE ONE 12/13 1715 DC 12/13 TOP 12/13 1716 1650 Nitroglycerin 0 .STK-MED ONE 12/13 1701 DC TOP Potassium Chloride 20 MEQ ONCE ONE 12/14 0730 DC PO 12/14 0731 Prednisone 40 MG DAILY 12/14 09 AC PO Vancomycin HCl 1,000 MG DAILY 12/14 09 DC Sodium Chloride 250 ML IV Vancomycin HCl 1,000 MG DAILY 12/13 2100 AC 12/13 Sodium Chloride 250 ML IV 2204 Warfarin Sodium 2 MG COUMADIN 1700 ONE 12/14 1700 AC PO 12/14 1701 Warfarin Sodium 2 MG COUMADIN 1700 ONE 12/13 2115 DC 12/13 PO 12/13 Review of Systems Review of Systems: Eyes no blurred or double vision Ears no deafness or ringing Nose and throat no recurrent sinusitis Lungs per history of present illness Heart per history of present illness Abdomen no nausea vomiting Musculoskeletal occasional muscle and joint pains Psych no anxiety or depression Neuro without recurrent headache or seizures Endocrine no heat or cold intolerance Past History Travel History Traveled to [place] past 21 day No Medical History Blood Transfusion Hx: No Neurological: NONE EENT: NONE Cardiovascular: AFIB, hypertension Respiratory: pneumonia Gastrointestinal: NONE Hepatic: NONE Renal: NONE Musculoskeletal: SPINAL STENOSIS Psychiatric: NONE Endocrine: hypothyroidism, THYROID Blood Disorders: anemia Cancer(s): NONE 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 Home Services at Home: Nursing, Physical Therapy Smoking Status: Never Smoked ETOH Use: occasional use Illicit Drug Use: denies illicit drug use Exam & Diagnostic Data Vital Signs and I&O Vital Signs Date Time Temp Pulse Resp B/P B/P Pulse O2 O2 Flow FiO2 Mean Ox Delivery Rate 12/14 0753 99 Nasal 50% Cannula 12/14 0735 62 99 12/14 0623 61 98 12/14 0400 97 BIPAP 50% 12/14 0257 59 99 12/14 0056 78 98 12/14 0000 98 BIPAP 65% 12/14 0000 97.9 83 27 92/60 98 BIPAP 65% 12/13 2220 60 98 12/13 2121 BIPAP 75% 12/13 2100 100 BIPAP 75% 12/13 2100 98.0 68 26 112/50 100 BIPAP 75% 12/13 2021 65 20 120/59 100 BIPAP 90% 12/13 1857 97.8 68 18 109/53 99 BIPAP 90% 12/13 1754 99.0 74 26 154/69 96 BIPAP 100% 12/13 1702 74 34 178/70 93 BIPAP 100% 12/13 1700 92 BIPAP 100% 12/13 1650 98.9 74 34 178/70 12/13 1650 78 92 12/13 1621 26 92 Nasal 4.0L Cannula 12/13 1621 98.9 78 26 188/91 81 Room Air 12/13 1620 82 Room Air 12/13 1620 92 Nasal 3.0L Cannula Intake & Output 12/14 1600 12/14 0800 12/14 0000 12/13 1600 12/13 0800 12/13 0000 Intake Total 120 560 Output Total 400 2150 Balance -280 -1590 Intake, IV 0 560 Intake, Oral 120 Number 0 0 Bowel Movements Output, Urine 400 2150 Patient 161 lb Weight Weight Bed scale Measurement Method Physical Exam: Patient is a well-developed well-nourished female appearing in moderate respiratory distress HEENT is unremarkable Neck is supple there is no JVD Lungs decreased air entry with wheezes bilaterally Heart regular rhythm S1 and S2 are normal no gallops or rubs 1/6.ejection murmur at left sternal border Abdomen bowel sounds positive Extremities without edema Labs/Parish Results: Laboratory Tests 12/14 12/14 12/14 0600 0345 0345 Blood Gas pH (7.35 - 7.45 PH) 7.46 H pCO2 (35 - 45 TORR) 40 pO2 (80 - 100 TORR) 89 HCO3 (21 - 28 MEQ/L) 28 ABG O2 Sat (Measured) (>96.0 %) 97.0 P-50 (Temp Corrected) N Carboxyhemoglobin (1.5 - 5.0 %) 0.1 L O2 Concentration % .50 Respiration Rate (BPM) 26 O2 Delivery Method BIPAP Vent Mode ST Expiratory Pressure (CM H2O P) 6 Inspiratory Pressure (CM H2O P) 20 Chemistry Troponin I (< 0.11 ng/ml) 0.06 Triglycerides (<150 mg/dL) 54 Cholesterol (<200 MG/DL) 146 LDL Cholesterol, Calc (65 - 129 mg/dL) 60 L HDL Cholesterol (40 - 60 mg/dL) 76 H Cholesterol/HDL Ratio (0.00 - 4.23 %) 2 Cortisol AM Sample (4.46 - 22.7 ug/dL) 8.8 Miscellaneous Phlebotomy Draw Site RIGHT RADIAL 12/14 12/13 0345 2213 Chemistry Sodium (137 - 145 mmol/L) 136 L Potassium (3.5 - 5.1 mmol/L) 3.8 Chloride (98 - 107 mmol/L) 98 Carbon Dioxide (22 - 30 mmol/L) 29 Anion Gap (5 - 16) 9 BUN (7 - 17 mg/dL) 19 H Creatinine (0.5 - 1.0 mg/dL) 0.8 Estimated GFR (>60 ml/min) > 60 Glucose (65 - 99 mg/dL) 141 H Calcium (8.4 - 10.2 mg/dL) 8.2 L Phosphorus (2.5 - 4.5 mg/dL) 5.2 H Magnesium (1.6 - 2.3 mg/dL) 2.2 Total Bilirubin (0.2 - 1.3 mg/dL) 0.7 AST (14 - 36 U/L) 28 ALT (9 - 52 U/L) 30 Troponin I (< 0.11 ng/ml) 0.07 Kyz-[id number]-Xrizyoskcjn Pept (<125 pg/mL) 3060 H Albumin (3.5 - 5.0 g/dL) 3.8 Coagulation PT (9.4 - 12.5 SEC) 25.7 H INR (0.90 - 1.19) 2.34 H Hematology CBC w Diff NO MAN DIFF REQ WBC (4.8 - 10.8 /CUMM) 3.0 L RBC (4.20 - 5.40 /CUMM) 2.47 L Hgb (12.0 - 16.0 G/DL) 8.6 L Hct (37 - 47 %) 25.5 L MCV (81.0 - 99.0 FL) 103.4 H MCH (27.0 - 31.0 PG) 34.8 H MCHC (33.0 - 37.0 G/DL) 33.7 RDW (11.5 - 14.5 %) 16.1 H Plt Count (130 - 400 /CUMM) 237 MPV (7.4 - 10.4 FL) 8.3 Gran % (42.2 - 75.2 %) 82.7 H Lymphocytes % (20.5 - 51.1 %) 11.7 L Monocytes % (1.7 - 9.3 %) 5.5 Eosinophils % (0 - 5 %) 0.1 Basophils % (0.0 - 2.0 %) 0 Absolute Granulocytes (1.4 - 6.5 /CUMM) 2.5 Absolute Lymphocytes (1.2 - 3.4 /CUMM) 0.3 L Absolute Monocytes (0.10 - 0.60 /CUMM) 0.2 Absolute Eosinophils (0.0 - 0.7 /CUMM) 0 Absolute Basophils (0.0 - 0.2 /CUMM) 0 12/13 12/13 1909 1909 Urines Urine Color (YEL,AMB,STR) YEL Urine Clarity (CLEAR) CLEAR Urine pH (5.0 - 8.0) 6.0 Ur Specific [place] (1.001 - 1.035) 1.020 Urine Protein (NEG,<30 MG/DL) 30 H Urine Ketones (NEG) NEG Urine Nitrite (NEG) NEG Urine Bilirubin (NEG) NEG Urine Urobilinogen (0.1 - 1.0 EU/dl) 0.2 Ur Leukocyte Esterase (NEG) NEG Ur Microscopic SEDIMENT EXAMINED Urine RBC (0 - 5 /HPF) 15-25 H Urine WBC (0 - 2 /HPF) 1-3 H Ur Epithelial Cells (NONE,FEW) RARE Urine Hemoglobin (NEG) SMALL H Urine Osmolality (300 - 1000 MOSM/KG) 349 Ur Random Creatinine (mg/dL) 10.6 Ur Random Sodium (30 - 90 mmol/L) 161 H Ur Random Potassium (mmol/L) 11.9 Fraction Sodium Excret (<1% %) 8.1 H Urine Glucose (N MG/DL) 250 H 12/13 12/13 1835 1757 Blood Gas pH (7.35 - 7.45 PH) 7.42 pCO2 (35 - 45 TORR) 40 pO2 (80 - 100 TORR) 74 L HCO3 (21 - 28 MEQ/L) 25 ABG O2 Sat (Measured) (>96.0 %) 94.0 L P-50 (Temp Corrected) N Carboxyhemoglobin (1.5 - 5.0 %) 0.3 L O2 Concentration % 90% Temperature (97.0 - 100.0 FARH) 99.0 Respiration Rate (BPM) 26 O2 Delivery Method BIPAP Vent Mode ST Expiratory Pressure (CM H2O P) 6 Inspiratory Pressure (CM H2O P) 20 Coagulation D-Dimer High Sensitivty Cancelled Miscellaneous Phlebotomy Draw Site RIGHT RADIAL 12/13 1731 Chemistry Sodium (137 - 145 mmol/L) 132 L Potassium (3.5 - 5.1 mmol/L) 4.2 Chloride (98 - 107 mmol/L) 95 L Carbon Dioxide (22 - 30 mmol/L) 30 Anion Gap (5 - 16) 7 BUN (7 - 17 mg/dL) 17 Creatinine (0.5 - 1.0 mg/dL) 0.7 Estimated GFR (>60 ml/min) > 60 BUN/Creatinine Ratio (7 - 25 %) 24.3 Glucose (65 - 99 mg/dL) 314 H Serum Osmolality (285 - 295 MOSM/KG) 307 H Calcium (8.4 - 10.2 mg/dL) 8.3 L Total Bilirubin (0.2 - 1.3 mg/dL) 1.0 AST (14 - 36 U/L) 35 ALT (9 - 52 U/L) 25 Alkaline Phosphatase (<127 U/L) 61 Troponin I (< 0.11 ng/ml) < 0.01 Total Protein (6.3 - 8.2 g/dL) 7.4 Albumin (3.5 - 5.0 g/dL) 4.2 Globulin (1.9 - 4.2 gm/dL) 3.2 Albumin/Globulin Ratio (1.1 - 2.2 %) 1.3 TSH (0.270 - 4.200 uIU/mL) 2.430 Free T4 (0.85 - 1.93 ng/dL) 1.43 Coagulation PT (9.4 - 12.5 SEC) 22.2 H INR (0.90 - 1.19) 2.02 H APTT (25 - 37 SEC) 28 D-Dimer High Sensitivty (0 - 243 ng/ml) 202 Hematology CBC w Diff NO MAN DIFF REQ WBC (4.8 - 10.8 /CUMM) 8.2 RBC (4.20 - 5.40 /CUMM) 2.70 L Hgb (12.0 - 16.0 G/DL) 9.5 L Hct (37 - 47 %) 28.6 L MCV (81.0 - 99.0 FL) 105.9 H MCH (27.0 - 31.0 PG) 35.0 H MCHC (33.0 - 37.0 G/DL) 33.1 RDW (11.5 - 14.5 %) 16.2 H Plt Count (130 - 400 /CUMM) 304 MPV (7.4 - 10.4 FL) 8.3 Gran % (42.2 - 75.2 %) 71.3 Lymphocytes % (20.5 - 51.1 %) 20.2 L Monocytes % (1.7 - 9.3 %) 7.7 Eosinophils % (0 - 5 %) 0.1 Basophils % (0.0 - 2.0 %) 0.7 Absolute Granulocytes (1.4 - 6.5 /CUMM) 5.9 Absolute Lymphocytes (1.2 - 3.4 /CUMM) 1.7 Absolute Monocytes (0.10 - 0.60 /CUMM) 0.6 Absolute Eosinophils (0.0 - 0.7 /CUMM) 0 Absolute Basophils (0.0 - 0.2 /CUMM) 0.1 Serology HIV 1&2 Ab Western Blot (NONREACTIVE) NONREACTIVE Diagnostic Data EKG Results Sinus rhythm incomplete right bundle branch block left anterior hemiblock nonspecific ST-T wave changes Other Results CT of the chest IMPRESSION: 1. Small groundglass opacity in the posterior right middle lobe subpleural lung. Measures about 2 x 1 cm. Consider follow-up CAT scan in 3 months. The Fleischner Society recommendations for incidental sub-solid pulmonary nodules are as follows: Solitary pure ground glass nodule < or = to 5 mm: No follow up needed. Solitary pure ground glass nodule > 5 mm: Follow up CT at 3 months; if unchanged, annual CT for at least 3 years. Solitary part-solid nodule: Follow up CT at 3 months; if persistent and solid component < 5 mm, annual CT for at least 3 years. If persistent and solid component > or = 5 mm, biopsy or resection. Multiple pure ground glass sub-solid nodules < or = to 5mm: CT at 2 and 4 years. Multiple pure ground glass sub-solid nodules > 5mm, no dominant lesion: Follow up CT at 3 months; if unchanged, annual CT for at least 3 years. Dominant nodule(s) with part-solid or solid component: Follow up CT at 3 months; if persistent, biopsy or resection. Assessment/Plan Assessment/Plan 1. Paroxysmal atrial fibrillation on Coumadin. Patient did have a brief episode last evening but reverted back to sinus rhythm. 2. Essential hypertension stable 3. Hyperlipidemia 4. Hospital-acquired pneumonia causing respiratory insufficiency 5. Chronic incomplete right bundle branch block 6. Mild AI and MR on echocardiogram 2014 with normal LV function EF 60% Recommendations 1. Continue Coumadin for stroke prevention monitoring INR 2. Continue nadolol 3. Monitor on telemetry 4. Would obtain an echocardiogram to assess LV function 5. Continue antibiotics per Dr. Saucedo Thank you for allowing [facility] to participate in the care of your patient. Consult Acknowledgment - Thank you for your consult request.
--- NOTE | 2017-12-14 11:27 | RADIOLOGY REPORT ---
EXAMINATION: XR PORTABLE CHEST CLINICAL INFORMATION: Community-acquired pneumonia, acute hypoxic respiratory failure. Productive cough. COMPARISON: 12/13/2017, 10/25/2015 TECHNIQUE: Portable frontal view of the chest was obtained. FINDINGS: The lungs are hyperinflated. No focal consolidation, pleural effusion or pneumothorax. Coarsened interstitial lung markings predominantly at the lung apices, similar to multiple prior studies and consistent with chronic lung disease. Heart size is normal. No acute osseous abnormality. Calcification of the costal cartilages. IMPRESSION: No acute pulmonary process. Chronic lung disease.
[2017-12-14 16:00] VITALS: BP 162/68
[2017-12-15] VITALS: BP 95/50
[2017-12-15 04:44] LABS: ABSOLUTE BASOPHIL COUNT 0 /CUMM (0.0-0.2); ABSOLUTE EOSINOPHIL COUNT 0 /CUMM (0.0-0.7); ABSOLUTE GRANULOCYTE CT 3.2 /CUMM (1.4-6.5); ABSOLUTE LYMPH COUNT 0.7 /CUMM (1.2-3.4); ABSOLUTE MONOCYTE COUNT 0.8 /CUMM (0.10-0.60); BASOPHIL % 0.1 % (0.0-2.0); EOSINOPHIL % 0.1 % (0-5); GRANULOCYTE % 67.6 % (42.2-75.2); HEMATOCRIT 25.1 % (37-47); MEAN CORPUSCULAR HGB 35.2 PG (27.0-31.0); MEAN CORPUSCULAR HGB CONC 33.5 G/DL (33.0-37.0); MEAN CORPUSCULAR VOLUME 105.1 FL (81.0-99.0); MEAN PLATELET VOLUME 8.4 FL (7.4-10.4); PLATELET COUNT 224 /CUMM (130-400); RBC DISTRIBUTION WIDTH 15.9 % (11.5-14.5); RED BLOOD CELL CT 2.39 /CUMM (4.20-5.40)
[2017-12-15 04:59] LABS: WHITE BLOOD CELL COUNT 4.7 /CUMM (4.8-10.8)
[2017-12-15 05:04] LABS: PT 44.6 SEC (9.4-12.5)
--- NOTE | 2017-12-15 07:11 | PN- Resident CRCU ---
Subjective HPI/CRCU Issues: Acute hypoxic respiratory failure possibly due to HCAP Probable tracheobronchitis Supratherapeutic INR History of Paroxysmal atrial fibrillation on Coumadin. History of Essential hypertension History of Hyperlipidemia History of GERD History of Chronic incomplete right bundle branch block Mild AI and MR on echocardiogram 2014 with normal LV function EF 60% 24 Hour Events: No overnight events. Patient remained afebrile. Seen and examined this morning. Patient is on high flow oxygen 40% and maintaining saturation 98%. She is complaining of cough but not able to bring any phlegm. She denied chest pain, palpitation, nausea, vomiting, abdominal pain and dysuria. Patient is tolerating diet orally. We will try to wean off her high flow oxygen and get her out of the bed in the chair. Objective Vital Signs & I&O Last 8 Hrs of Vitals and I&O: Intake & Output 12/15 1600 Intake Total Output Total Balance Patient 147 lb Weight Exam General Appearance: well developed/nourished, no apparent distress, alert Head: atraumatic Neck: normal inspection, supple Respiratory: normal breath sounds, chest non-tender Cardiovascular: regular rate/rhythm Gastrointestinal: normal bowel sounds, soft Extremities: no edema Skin Temp/Moisture Exam: Warm/Dry Sepsis Skin Exam (color): Normal for Ethnicity Current Medications: Current Medications Sig/Yanni Start time Last Medication Dose Route Stop Time Status Admin Acetaminophen 650 MG Q6P PRN 12/13 181 AC PO Acetaminophen 1,000 MG Q6P PRN 12/13 1815 AC IV Albuterol Sulfate 3 ML EVERY 4 HRS/AWAKE 12/14 08 AC 12/15 INH 1145 Albuterol Sulfate 2 PUF Q4P PRN 12/13 2014 AC INH Ceftazidime 1,000 MG Q12 12/13 2100 AC 12/15 IV 0848 Guaifenesin 10 ML ONCE ONE 12/15 0145 DC 12/15 PO 12/15 0146 0145 Guaifenesin 0 .STK-MED ONE 12/15 0135 DC PO Guaifenesin 600 MG Q12H 12/14 1420 AC PO Patient Own 1 UNIT [email or web address] 12/15 1700 AC Medication PO Patient Own 1 UNIT MoWeFr 12/15 1114 AC 12/15 Medication PO 1140 Patient Own 1 UNIT 12/14 1700 AC 12/14 Medication PO 1614 Patient Own 1 UNIT [id number] 12/14 1130 AC 12/15 Medication PO 0733 Patient Own 1 UNIT DAILY 12/14 1130 AC 12/15 Medication PO 0849 Patient Own 1 UNIT BID 12/14 1115 AC 12/15 Medication PO 0849 Prednisone 30 MG DAILY 12/16 0900 AC PO Prednisone 40 MG DAILY 12/14 0900 DC 12/15 PO 0848 Vancomycin HCl 1,000 MG DAILY 12/13 2100 AC 12/15 Sodium Chloride 250 ML IV 0848 Warfarin Sodium 2 MG COUMADIN 1700 ONE 12/14 1700 DC PO 12/14 1701 Impression/Plan Impression/Problem List Impression: 87 years old lady with past medical history of hypertension, hyperlipidemia and atrial fibrillation on Coumadin who is presenting with chief complaint of shortness of breath. Patient was seen earlier yesterday morning in ED with chief complaint of progressive worsening of shortness of breath that started after sore throat with productive cough. Patient was prescribed antibiotic and was sent home but later in the afternoon she was brought in again as her shortness of breath was worsening. In ED her oxygen saturation was dropping to 60s by coming back from radiology department after CT scan. Patient was placed on BiPAP and she was given albuterol and 2 g of magnesium. Patient was recently [facility] from [facility] after treatment of community-acquired pneumonia on 10/05/2017 that put her high risk for hospital-acquired pneumonia. We are following the patient for following problems: Acute hypoxic respiratory failure due to pneumonia: -Possibly due to HCAP as patient was recently discharged after being treated for pneumonia that put her at risk of Hcap. -Continue high flow oxygen 40% and maintaining saturation above 92%, tappering it to 4L O2 with nasal cannula. -Continue BiPAP if needed. -Continue ceftaz and vancomycin day 3 -Continue prednisone 30mg daily and then quick taper it. -Her venous doppler remained negative for DVT. -Continue TRC nebulization -Follow-up sputum cultures EKG changes: -Patient has incomplete right bundle branch block and left anterior fascicular block. -Her trops remained negative. -Her echo showed EF 65-70%. Supratherapeutic INR: -Patient's INR today is 4.03 -We will hold his Coumadin today and tomorrow we will give him Coumadin if his INR is less than 3. History of paroxysmal A. fib: -Continue nadolol. -INR today 4.03 History of hypertension and hyperlipidemia: -Continue nadolol and Norvasc -Continue Lipitor History of hypothyroidism: -Continue levothyroxine Bed sores: -Stage 1 bed sore on the coccygeal region. -Frequent change of position to prevent pressure. DVT prophylaxis: Mechanical and on coumadin already. CODE STATUS: Full code Problem List: 1. Acute respiratory failure with hypoxia 2. Pneumonia Pain Ratin Pain Location: none Pain Plan: pain pathway Tomorrow's Labs & Rationales: cbc/inr/icu bundle Plan DVT/Prophylaxis: mechanical, pharmacological
--- NOTE | 2017-12-15 07:11 | ECHOCARDIOGRAM REPORT ---
VILMA ALTMAN Age: 87 : 1930 Gender: F Exam Date: 12/14/2017 16:36 Exam Location: [facility] Ht (in): 64 Wt (lb): 161 BSA: 1.83 BP: 122 / 64 Ordering Physician: Cody Jacobsen MD Referring Physician: Deandre Guzman MD Technologist: Mary Antonio GRAHAM Room Number: 104 Indications: Structural heart disease Rhythm: Sinus Technical Quality: fair FINDINGS Left Ventricle Normal size left ventricle. Left ventricular wall thickness at upper limits of normal. Normal left ventricular ejection fraction estimated at 65-70%. Right Ventricle Normal right ventricular size and function. Right Atrium Mild right atrial dilatation. Left Atrium Mild left atrial dilatation. Mitral Valve Moderate mitral annular calcification. Mild Mitral regurgitation Aortic Valve Diffuse thickening (sclerosis) of the aortic valve cusps without reduced excursion. Mild aortic regurgitation. Tricuspid Valve Tricuspid valve is normal in structure and function. Mild tricuspid regurgitation. Pulmonic Valve Pulmonic valve not well visualized, grossly normal. Pericardium No pericardial effusion. Great Vessels Normal size aortic root and proximal ascending aorta. CONCLUSIONS Normal left and right ventricular systolic function. Left atrial enlargement. Mild Mitral and tricuspid Regurgitation without Pulmonary hypertension. Deandre Guzman M.D. (Electronically Signed) Final Date: 15 December 2017 07:06 MEASUREMENTS (Male / Female) Normal Values 2D ECHO LV Diastolic Diameter PLAX 4.1 cm 4.2 - 5.9 / 3.9 - 5.3 cm LV Systolic Diameter PLAX 2.3 cm 2.1 - 4.0 cm LV Fractional Shortening PLAX 43.9 % 25 - 46 % LV Ejection Fraction 2D Teich 75.6 % IVS Diastolic Thickness 1.1 cm LVPW Diastolic Thickness 1.1 cm LV Relative Wall Thickness 0.5 RV Internal Dim ED PLAX 1.9 cm 1.9 - 3.8 cm LVOT Diameter 1.8 cm Aortic Root Diameter 2.8 cm LA Systolic Diameter LX 2.9 cm 3.0 - 4.0 / 2.7 - 3.8 cm LA Volume 32.0 cm 18 - 58 / 22 - 52 cm DOPPLER AV Peak Velocity 143.0 cm/s AV Peak Gradient 8.2 mmHg AV Mean Velocity 104.0 cm/s AV Mean Gradient 5.0 mmHg AV Velocity Time Integral 32.3 cm LVOT Peak Velocity 107.0 cm/s LVOT Peak Gradient 4.6 mmHg LVOT Mean Velocity 69.6 cm/s LVOT Mean Gradient 2.0 mmHg LVOT Velocity Time Integral 23.2 cm LVOT Stroke Volume 59.0 cm AV Area Cont Eq vti 1.8 cm AV Area Cont Eq pk 1.9 cm MV Peak Velocity 81.0 cm/s MV Peak Gradient 2.6 mmHg MV Mean Velocity 51.1 cm/s MV Mean Gradient 1.0 mmHg Mitral E Point Velocity 72.6 cm/s Mitral A Point Velocity 54.8 cm/s Mitral E to A Ratio 1.3 MV PHT Velocity 83.4 cm/s MV Deceleration [place] 266.0 cm/s MV Pressure Half Time 94.1 ms MV Area PHT 2.3 cm MV Deceleration Time 203.0 ms TR Peak Velocity 188.0 cm/s TR Peak Gradient 14.1 mmHg Right Atrial Pressure 5.0 mmHg Pulmonary Artery Systolic Pressure 19.1 mmHg Right Ventricular Systolic Pressure 19.1 mmHg PV Peak Velocity 149.0 cm/s PV Peak Gradient 8.9 mmHg PV Mean Velocity 83.2 cm/s PV Mean Gradient 3.0 mmHg PV Velocity Time Integral 29.8 cm LV E' Lateral Velocity 5.0 cm/s Mitral E to LV E' Lateral Ratio 14.6 LV E' Septal Velocity 4.3 cm/s Mitral E to LV E' Septal Ratio 16.9
[2017-12-15 08:00] VITALS: BP 146/70
--- NOTE | 2017-12-15 08:19 | PN- CRCU ---
Subjective HPI/Critical Care Issues: The patient is awake and alert. She currently is on high flow oxygen at 40%. She has had issues with not sleeping, however she was able to sleep for 4 hours overnight. She remains very anxious however this has improved with low-dose Xanax. Her appetite is slowly improving but is still decreased compared to her baseline. She has a congested cough but has difficulty expectorating sputum. She denies any chest pain, nausea, abdominal pain, bloody stools or any other issues. Per the patient's son, she has been intermittently confused. Objective Current Medications: Current Medications Sig/Yanni Start time Last Medication Dose Route Stop Time Status Admin Acetaminophen 650 MG Q6P PRN 12/13 1815 AC PO Acetaminophen 1,000 MG Q6P PRN 12/13 1815 AC IV Albuterol Sulfate 3 ML EVERY 4 HRS/AWAKE 12/14 0800 AC 12/15 INH 0053 Albuterol Sulfate 2 PUF Q4P PRN 12/13 2014 AC INH Alprazolam 0.5 MG ONCE ONE 12/14 1430 DC 12/14 PO 12/14 1431 1435 Atorvastatin Calcium 10 MG DAILY 12/14 0900 DC PO Ceftazidime 1,000 MG Q12 12/13 2100 AC 12/14 IV 2120 Guaifenesin 10 ML ONCE ONE 12/15 0145 DC 12/15 PO 12/15 0146 0145 Guaifenesin 0 .STK-MED ONE 12/15 0135 DC PO Guaifenesin 600 MG Q12H 12/14 1420 AC PO Levothyroxine Sodium 0.05 MG DAILY AC 12/14 0700 DC 12/14 PO 0619 Nadolol 20 MG BID 12/14 0900 DC PO Non-Formulary 0 SEE ADMIN CRITERIA 12/14 1115 CAN Medication ANY Non-Formulary 0 SEE ADMIN CRITERIA 12/14 1100 CAN Medication ANY Non-Formulary 0 SEE ADMIN CRITERIA 12/14 1100 CAN Medication ANY Non-Formulary 0 SEE ADMIN CRITERIA 12/14 1100 CAN Medication ANY Non-Formulary 0 SEE ADMIN CRITERIA 12/14 1100 CAN Medication ANY Non-Formulary 0 SEE ADMIN CRITERIA 12/14 1100 CAN Medication ANY Patient Own 1 UNIT [email or web address] 12/15 1700 AC Medication PO Patient Own 1 UNIT MoWeFr 12/15 1114 AC Medication PO Patient Own 1 UNIT 1700 12/14 1700 AC 12/14 Medication PO 1614 Patient Own 1 UNIT 0700 12/14 1130 AC 12/15 Medication PO 0733 Patient Own 1 UNIT DAILY 12/14 1130 AC 12/14 Medication PO 1154 Patient Own 1 UNIT BID 12/14 1115 AC 12/14 Medication PO 2122 Prednisone 40 MG DAILY 12/14 0900 AC 12/14 PO 1203 Vancomycin HCl 1,000 MG DAILY 12/13 2100 AC 12/14 Sodium Chloride 250 ML IV 1156 Warfarin Sodium 2 MG COUMADIN 1700 ONE 12/14 1700 DC PO 12/14 1701 Vital Signs & I&O Last 24 Hrs of Vitals and I&O: Vital Signs Date Time Temp Pulse Resp B/P B/P Pulse O2 O2 Flow FiO2 Mean Ox Delivery Rate 12/15 0400 98 Nasal 40% Cannula 12/15 0043 97 Nasal 40% Cannula 12/15 0000 97 Nasal 40% Cannula 12/15 0000 97.6 61 16 95/50 97 Nasal 40% Cannula 12/14 2000 98 Nasal 40% Cannula 12/14 1600 86 Nasal 4.0L Cannula 12/14 1600 98.0 78 30 162/68 86 Nasal 4.0L Cannula 12/14 1550 95 Nasal 45% Cannula 12/14 1200 97 Nasal 45% Cannula Intake & Output 12/15 1600 12/15 0800 12/15 0000 Intake Total 100 275 Output Total 370 200 Balance -270 75 Intake, Oral 100 275 Number 0 Bowel Movements Output, Urine 370 200 Patient 149 lb Weight Weight Bed scale Measurement Method Physical Exam General Appearance: Anxious, alert, awake Head: atraumatic, normal appearance Neck: normal inspection, supple Respiratory: bilateral ronchi and wheezing Cardiovascular: S1 and S2 heard Gastrointestinal: normal bowel sounds, soft, non-tender Extremities: normal inspection, no edema Neurologic/Psych: no motor/sensory deficits, awake, alert Results Last 24 Hrs of Lab Results: Laboratory Tests 12/15/17 0405: Anion Gap 5, Estimated GFR > 60, Glucose 106 H, Calcium 8.2 L, Phosphorus 3.7, Magnesium 2.3, Total Bilirubin 0.6, AST 27, ALT 32, Albumin 3.5, PT 44.6 *H, INR 4.03 *H, CBC w Diff NO MAN DIFF REQ, RBC 2.39 L, MCV 105.1 H, MCH 35.2 H, MCHC 33.5, RDW 15.9 H, MPV 8.4, Gran % 67.6, Lymphocytes % 15.2 L, Monocytes % 17.0 H, Eosinophils % 0.1, Basophils % 0.1, Absolute Granulocytes 3.2, Absolute Lymphocytes 0.7 L, Absolute Monocytes 0.8 H, Absolute Eosinophils 0, Absolute Basophils 0 12/14/17 0855: Lactic Acid 1.2 Impression/Plan Impression/Plan Impression/Plan: 1. Acute hypoxemic respiratory failure secondary to pneumonia, possible healthcare associated pneumonia and tracheobronchitis. 2. Acute bronchospasm, on steroids. 3. Anemia, likely dilutional, no evidence of bleeding. 4. Delirium in the setting of sepsis/infection. 5. Anxiety. 6. Atrial fibrillation, on Coumadin with supratherapeutic INR. 7. History of hypertension -on nadolol and Norvasc. 8. GERD. 9. History of valvular heart disease. 10. Hypothyroidism, on levothyroxine. 11. Hyperlipidemia, on Lipitor. Recommendations: * Discontinue BiPAP. * Continue to alternate between NC and high flow O2, for saturations greater than 92%. * Continue nebs/total respiratory care. * Incentive spirometry. * Check a chest x-ray tomorrow morning. * Decrease prednisone to 30 mg daily. Will taper down quickly. * Hold Coumadin and monitor for any evidence of bleeding. Guaiac stools. Check daily INRs. * Follow-up culture results. * Continue vancomycin and ceftazidime. Will de-escalate therapy if cultures remain negative. * Monitor off IV fluids. * Encourage oral intake. * Follow-up cardiology recommendations. * Check echocardiogram results. * Out of bed to chair today please. * Physical therapy consult. * Continue home medications including nadolol, Norvasc and Lipitor. * The patient is a full code. * I discussed the plan of care with the housestaff, nursing, and the patient son at length. * The patient will have her vital signs downgraded today but keep in ICU.
--- NOTE | 2017-12-15 08:57 | PN- Cardiology ---
Subjective Subjective: Patient seen at bedside. She denies chest pain, palpitations, dyspnea at rest. She still has cough, denies sputum production. She states that she feels better after nebulizer treatments. Objective Vital Signs and I&Os Vital Signs Date Time Temp Pulse Resp B/P B/P Pulse O2 O2 Flow FiO2 Mean Ox Delivery Rate 12/15 0834 98 Nasal 40% Cannula 12/15 0400 98 Nasal 40% Cannula 12/15 0043 97 Nasal 40% Cannula 12/15 0000 97 Nasal 40% Cannula 12/15 0000 97.6 61 16 95/50 97 Nasal 40% Cannula 12/14 2000 98 Nasal 40% Cannula 12/14 1600 86 Nasal 4.0L Cannula 12/14 1600 98.0 78 30 162/68 86 Nasal 4.0L Cannula 12/14 1550 95 Nasal 45% Cannula 12/14 1200 97 Nasal 45% Cannula Intake & Output 12/15 1600 12/15 0800 12/15 0000 12/14 1600 12/14 0800 12/14 0000 Intake Total 100 275 500 120 560 Output Total 370 200 131 007 9291 Balance -270 75 200 -280 -1590 Intake, IV 250 0 560 Intake, Oral 100 275 250 120 Number 0 0 0 Bowel Movements Output, Urine 370 200 041 728 9806 Patient 66.678 kg 67.472 kg 73.1 kg Weight Weight Bed scale Bed scale Measurement Method Physical Exam: General: Elderly lady lying in bed, high flow nasal cannula in place, no apparent distress HEENT: NCAT, NO JVD Heart: s1s2, RRR, no MRG Lungs: Fair air entry bilaterally, faint scattered expiratory wheeze Abd: soft, nt Ext: no peripheral edema Current Medications: Current Medications Sig/Yanni Start time Last Medication Dose Route Stop Time Status Admin Acetaminophen 650 MG Q6P PRN 12/13 1814 AC PO Acetaminophen 1,000 MG Q6P PRN 12/13 1814 AC IV Albuterol Sulfate 3 ML EVERY 4 HRS/AWAKE 12/14 08 AC 12/15 INH 811 Albuterol Sulfate 2 PUF Q4P PRN 12/13 2014 AC INH Alprazolam 0.5 MG ONCE ONE 12/14 1430 DC 12/14 PO 12/14 1431 1435 Atorvastatin Calcium 10 MG DAILY 12/14 0900 DC PO Ceftazidime 1,000 MG Q12 12/13 2099 AC 12/15 IV 0848 Guaifenesin 10 ML ONCE ONE 12/15 0145 DC 12/15 PO 12/15 0146 0145 Guaifenesin 0 .STK-MED ONE 12/15 0135 DC PO Guaifenesin 600 MG Q12H 12/14 1420 AC PO Levothyroxine Sodium 0.05 MG DAILY AC 12/14 0700 DC 12/14 PO 0619 Nadolol 20 MG BID 12/14 0900 DC PO Non-Formulary 0 SEE ADMIN CRITERIA 12/14 1115 CAN Medication ANY Non-Formulary 0 SEE ADMIN CRITERIA 12/14 1100 CAN Medication ANY Non-Formulary 0 SEE ADMIN CRITERIA 12/14 1100 CAN Medication ANY Non-Formulary 0 SEE ADMIN CRITERIA 12/14 1100 CAN Medication ANY Non-Formulary 0 SEE ADMIN CRITERIA 12/14 1100 CAN Medication ANY Non-Formulary 0 SEE ADMIN CRITERIA 12/14 1100 CAN Medication ANY Patient Own 1 UNIT [email or web address] 12/15 1700 AC Medication PO Patient Own 1 UNIT MoWeFr 12/15 1114 AC Medication PO Patient Own 1 UNIT 1700 12/14 1700 AC 12/14 Medication PO 1614 Patient Own 1 UNIT 0700 12/14 1130 AC 12/15 Medication PO 0733 Patient Own 1 UNIT DAILY 12/14 1130 AC 12/15 Medication PO 0849 Patient Own 1 UNIT BID 12/14 1115 AC 12/15 Medication PO 0849 Prednisone 40 MG DAILY 12/14 0900 AC 12/15 PO 0848 Vancomycin HCl 1,000 MG DAILY 12/13 2100 AC 12/15 Sodium Chloride 250 ML IV 0848 Warfarin Sodium 2 MG COUMADIN 1700 ONE 12/14 1700 DC PO 12/14 1701 Results Last 48 Hrs of Labs/Mics: Laboratory Tests 12/15/17 0405: Anion Gap 5, Estimated GFR > 60, Glucose 106 H, Calcium 8.2 L, Phosphorus 3.7, Magnesium 2.3, Total Bilirubin 0.6, AST 27, ALT 32, Albumin 3.5, PT 44.6 *H, INR 4.03 *H, CBC w Diff NO MAN DIFF REQ, RBC 2.39 L, MCV 105.1 H, MCH 35.2 H, MCHC 33.5, RDW 15.9 H, MPV 8.4, Gran % 67.6, Lymphocytes % 15.2 L, Monocytes % 17.0 H, Eosinophils % 0.1, Basophils % 0.1, Absolute Granulocytes 3.2, Absolute Lymphocytes 0.7 L, Absolute Monocytes 0.8 H, Absolute Eosinophils 0, Absolute Basophils 0 12/14/17 0855: Lactic Acid 1.2 12/14/17 0600: pH 7.46 H, pCO2 40, pO2 89, HCO3 28, ABG O2 Sat (Measured) 97.0, P-50 (Temp Corrected) N, Carboxyhemoglobin 0.1 L, O2 Concentration % .50, Respiration Rate 26, O2 Delivery Method BIPAP, Vent Mode ST, Expiratory Pressure 6, Inspiratory Pressure 20, Phlebotomy Draw Site RIGHT RADIAL 12/14/17344: Troponin I 0.06 12/14/17344: Triglycerides 54, Cholesterol 146, LDL Cholesterol, Calc 60 L, HDL Cholesterol 76 H, Cholesterol/HDL Ratio 2, Cortisol AM Sample 8.8 12/14/17344: Anion Gap 9, Estimated GFR > 60, Glucose 141 H, Calcium 8.2 L, Phosphorus 5.2 H, Magnesium 2.2, Total Bilirubin 0.7, AST 28, ALT 30, [id number] Pept 3060 H, Albumin 3.8, PT 25.7 H, INR 2.34 H, CBC w Diff NO MAN DIFF REQ, RBC 2.47 L, MCV 103.4 H, MCH 34.8 H, MCHC 33.7, RDW 16.1 H, MPV 8.3, Gran % 82.7 H, Lymphocytes % 11.7 L, Monocytes % 5.5, Eosinophils % 0.1, Basophils % 0, Absolute Granulocytes 2.5, Absolute Lymphocytes 0.3 L, Absolute Monocytes 0.2, Absolute Eosinophils 0, Absolute Basophils 0 12/13/172212: Troponin I 0.07 12/13/171908: Urine Color YEL, Urine Clarity CLEAR, Urine pH 6.0, Ur Specific [place] 1.020, Urine Protein 30 H, Urine Ketones NEG, Urine Nitrite NEG, Urine Bilirubin NEG, Urine Urobilinogen 0.2, Ur Leukocyte Esterase NEG, Ur Microscopic SEDIMENT EXAMINED, Urine RBC 15-25 H, Urine WBC 1-3 H, Ur Epithelial Cells RARE, Urine Hemoglobin SMALL H, Urine Glucose 250 H 12/13/171908: Urine Osmolality 349, Ur Random Creatinine 10.6, Ur Random Sodium 161 H, Ur Random Potassium 11.9, Fraction Sodium Excret 8.1 H 12/13/17 1835: pH 7.42, pCO2 40, pO2 74 L, HCO3 25, ABG O2 Sat (Measured) 94.0 L, P-50 (Temp Corrected) N, Carboxyhemoglobin 0.3 L, O2 Concentration % 90%, Temperature 99.0 , Respiration Rate 26, O2 Delivery Method BIPAP, Vent Mode ST, Expiratory Pressure 6, Inspiratory Pressure 20, Phlebotomy Draw Site RIGHT RADIAL 12/13/17 1757: D-Dimer High Sensitivty Cancelled 12/13/17 1731: Anion Gap 7, Estimated GFR > 60, BUN/Creatinine Ratio 24.3, Glucose 314 H, Serum Osmolality 307 H, Calcium 8.3 L, Total Bilirubin 1.0, AST 35, ALT 25, Alkaline Phosphatase 61, Troponin I < 0.01, Total Protein 7.4, Albumin 4.2, Globulin 3.2, Albumin/Globulin Ratio 1.3, TSH 2.430, Free T4 1.43, PT 22.2 H, INR 2.02 H, APTT 28, D-Dimer High Sensitivty 202, CBC w Diff NO MAN DIFF REQ, RBC 2.70 L, MCV 105.9 H, MCH 35.0 H, MCHC 33.1, RDW 16.2 H, MPV 8.3, Gran % 71.3, Lymphocytes % 20.2 L, Monocytes % 7.7, Eosinophils % 0.1, Basophils % 0.7 , Absolute Granulocytes 5.9, Absolute Lymphocytes 1.7, Absolute Monocytes 0.6, Absolute Eosinophils 0, Absolute Basophils 0.1, HIV 1&2 Ab Western Blot NONREACTIVE Microbiology 12/13 2054 UPPER RESP: Surveillance Culture - COMP 12/13 2054 GI: Surveillance Culture - COMP 12/13 1840 URINE ROUT: Legionella Antigen - COMP 12/13 1840 URINE ROUT: Streptococcus pneumoniae Antigen (M - COMP Recent Imaging Studies: Transthoracic echocardiogram 12/14/2017 Normal left and right ventricular systolic function. Left atrial enlargement. Mild Mitral and tricuspid Regurgitation without Pulmonary hypertension. Telemetry personally reviewed: Normal sinus rhythm, no SVT or atrial fibrillation in the last 24 hours Assessment/Plan Assessment/Plan 1. Paroxysmal atrial fibrillation on Coumadin, currently in sinus rhythm, INR supratherapeutic today 2. Essential hypertension stable 3. Hyperlipidemia 4. Hospital-acquired pneumonia causing respiratory insufficiency 5. Chronic incomplete right bundle branch block 6. Echocardiogram this admission shows normal LV function LVEF 65-70%, mild biatrial enlargement, mild MR, mild AI Recommendations 1. Hold Coumadin tonight as INR is supratherapeutic, restart Coumadin when INR is less than 3 for goal INR 2-3 2. Continue nadolol 3. Monitor on telemetry 4. Continue antibiotics per Dr. Saucedo Continue telemetry? Yes
[2017-12-15 16:00] VITALS: BP 130/70
[2017-12-16] VITALS: BP 150/60
[2017-12-16 05:19] LABS: ABSOLUTE BASOPHIL COUNT 0 /CUMM (0.0-0.2); ABSOLUTE EOSINOPHIL COUNT 0 /CUMM (0.0-0.7); ABSOLUTE GRANULOCYTE CT 3.2 /CUMM (1.4-6.5); ABSOLUTE LYMPH COUNT 1.2 /CUMM (1.2-3.4); ABSOLUTE MONOCYTE COUNT 0.8 /CUMM (0.10-0.60); BASOPHIL % 0.2 % (0.0-2.0); EOSINOPHIL % 0.6 % (0-5); HEMATOCRIT 26.7 % (37-47); MEAN CORPUSCULAR HGB 35.3 PG (27.0-31.0); MEAN CORPUSCULAR HGB CONC 33.8 G/DL (33.0-37.0); MEAN CORPUSCULAR VOLUME 104.5 FL (81.0-99.0); PLATELET COUNT 229 /CUMM (130-400); RBC DISTRIBUTION WIDTH 15.7 % (11.5-14.5); RED BLOOD CELL CT 2.56 /CUMM (4.20-5.40); WHITE BLOOD CELL COUNT 5.2 /CUMM (4.8-10.8)
[2017-12-16 05:23] LABS: PT 36.7 SEC (9.4-12.5)
--- NOTE | 2017-12-16 07:01 | PN- Resident CRCU ---
Subjective HPI/CRCU Issues: Acute hypoxic respiratory failure possibly due to HCAP Probable tracheobronchitis Supratherapeutic INR History of Paroxysmal atrial fibrillation on Coumadin. History of Essential hypertension History of Hyperlipidemia History of GERD History of Chronic incomplete right bundle branch block Mild AI and MR on echocardiogram 2014 with normal LV function EF 60% 24 Hour Events: No overnight events. Patient remained afebrile,. Seen and examined this morning. She is on 4 L of oxygen and maintaining saturation 98%. Patient denied chest pain, nausea, vomiting, chills, fever, abdominal pain dysuria. Patient reported having cough but she is not able to bring any phlegm. She reported that she doesn't like Mucinex. We will try to move the patient out of the bed and walk around and check her saturation. We will try to been off her oxygen while maintaining oxygen saturation above 92%. Objective Vital Signs & I&O Last 8 Hrs of Vitals and I&O: Intake & Output 12/16 1600 12/16 0800 12/16 0000 Intake Total 690 200 380 Output Total 300 295 550 Balance 390 -95 -170 Intake, IV 290 30 Intake, Oral 400 200 350 Number 1 0 Bowel Movements Output, Urine 300 295 550 Laboratory Tests 12/16 0455 Chemistry Sodium (137 - 145 mmol/L) 139 Potassium (3.5 - 5.1 mmol/L) 4.0 Chloride (98 - 107 mmol/L) 99 Carbon Dioxide (22 - 30 mmol/L) 37 H Anion Gap (5 - 16) 3 L BUN (7 - 17 mg/dL) 21 H Creatinine (0.5 - 1.0 mg/dL) 0.7 Estimated GFR (>60 ml/min) > 60 Glucose (65 - 99 mg/dL) 101 H Calcium (8.4 - 10.2 mg/dL) 8.5 Phosphorus (2.5 - 4.5 mg/dL) 2.9 Magnesium (1.6 - 2.3 mg/dL) 2.2 Total Bilirubin (0.2 - 1.3 mg/dL) 0.4 AST (14 - 36 U/L) 24 ALT (9 - 52 U/L) 28 Albumin (3.5 - 5.0 g/dL) 3.3 L Coagulation PT (9.4 - 12.5 SEC) 36.7 H INR (0.90 - 1.19) 3.33 H Hematology CBC w Diff NO MAN DIFF REQ WBC (4.8 - 10.8 /CUMM) 5.2 RBC (4.20 - 5.40 /CUMM) 2.56 L Hgb (12.0 - 16.0 G/DL) 9.0 L Hct (37 - 47 %) 26.7 L MCV (81.0 - 99.0 FL) 104.5 H MCH (27.0 - 31.0 PG) 35.3 H MCHC (33.0 - 37.0 G/DL) 33.8 RDW (11.5 - 14.5 %) 15.7 H Plt Count (130 - 400 /CUMM) 229 MPV (7.4 - 10.4 FL) 8.0 Gran % (42.2 - 75.2 %) 61.0 Lymphocytes % (20.5 - 51.1 %) 23.8 Monocytes % (1.7 - 9.3 %) 14.4 H Eosinophils % (0 - 5 %) 0.6 Basophils % (0.0 - 2.0 %) 0.2 Absolute Granulocytes (1.4 - 6.5 /CUMM) 3.2 Absolute Lymphocytes (1.2 - 3.4 /CUMM) 1.2 Absolute Monocytes (0.10 - 0.60 /CUMM) 0.8 H Absolute Eosinophils (0.0 - 0.7 /CUMM) 0 Absolute Basophils (0.0 - 0.2 /CUMM) 0 Intake & Output 12/16 1600 Intake Total 690 Output Total 300 Balance 390 Intake, IV 290 Intake, Oral 400 Number 1 Bowel Movements Output, Urine 300 Exam General Appearance: well developed/nourished, no apparent distress, alert Head: atraumatic Neck: normal inspection, supple Respiratory: normal breath sounds, chest non-tender Cardiovascular: regular rate/rhythm Gastrointestinal: normal bowel sounds, soft Extremities: normal inspection Skin Temp/Moisture Exam: Warm/Dry Sepsis Skin Exam (color): Normal for Ethnicity Current Medications: Current Medications Sig/Yanni Start time Last Medication Dose Route Stop Time Status Admin Acetaminophen 650 MG Q6P PRN 12/13 1814 AC PO Acetaminophen 1,000 MG Q6P PRN 12/13 1814 AC IV Albuterol Sulfate 3 ML EVERY 4 HRS/AWAKE 12/14 0800 AC 12/16 INH 1407 Albuterol Sulfate 2 PUF Q4P PRN 12/13 2014 AC INH Azithromycin 500 MG DAILY 12/17 0900 AC Sodium Chloride 250 ML IV Ceftazidime 1,000 MG Q12 12/13 2100 DC 12/16 IV 1045 Ceftriaxone Sodium 1,000 MG DAILY 12/17 09 AC IV Guaifenesin 10 ML ONCE ONE 12/15 2330 DC 12/15 PO 12/15 2331 2334 Guaifenesin 0 .STK-MED ONE 12/15 2328 DC PO Guaifenesin 10 ML ONCE ONE 12/15 1900 DC 12/15 PO 12/15 1901 1900 Guaifenesin 0 .STK-MED ONE 12/15 1859 DC PO Guaifenesin 600 MG Q12H 12/14 1420 DC PO Patient Own 1 UNIT [email or web address] 12/15 1700 AC 12/15 Medication PO 2145 Patient Own 1 UNIT MoWeFr 12/15 1114 AC 12/15 Medication PO 1140 Patient Own 1 UNIT 1700 12/14 1700 AC 12/14 Medication PO 1614 Patient Own 1 UNIT 0700 12/14 1130 AC 12/16 Medication PO 0731 Patient Own 1 UNIT DAILY 12/14 1130 AC 12/16 Medication PO 0953 Patient Own 1 UNIT BID 12/14 1115 AC 12/16 Medication PO 0953 Prednisone 20 MG DAILY 12/17 09 AC PO Prednisone 30 MG DAILY 12/16 0900 DC 12/16 PO 0952 Vancomycin HCl 1,000 MG DAILY 12/13 2100 DC 12/16 Sodium Chloride 250 ML IV 1058 Zinc Oxide 1 LONNIE BID 12/16 0900 AC 12/16 TOP 0958 Impression/Plan Impression/Problem List Impression: 87 years old lady with past medical history of hypertension, hyperlipidemia and atrial fibrillation on Coumadin who is presenting with chief complaint of shortness of breath. Patient was seen earlier yesterday morning in ED with chief complaint of progressive worsening of shortness of breath that started after sore throat with productive cough. Patient was prescribed antibiotic and was sent home but later in the afternoon she was brought in again as her shortness of breath was worsening. In ED her oxygen saturation was dropping to 60s by coming back from radiology department after CT scan. Patient was placed on BiPAP and she was given albuterol and 2 g of magnesium. Patient was recently discharged from [facility] after treatment of community-acquired pneumonia on 10/05/2017 that put her high risk for hospital-acquired pneumonia. We are following the patient for following problems: Acute hypoxic respiratory failure due to pneumonia:(improving) -Possibly due to HCAP as patient was recently discharged after being treated for pneumonia that put her at risk of Hcap. -On 4 L of oxygen and maintaining saturation 98%. We will wean off her oxygen keeping her saturation above 92%. -Continue ceftaz and vancomycin day 4, changing it to ceftriaxone and azithromycin today. -Continue prednisone 20mg daily and then quick taper it for bronchospasm. -Her venous doppler remained negative for DVT. -Continue TRC nebulization -Follow-up sputum cultures. Patient is not able to bring any sputum. -Chest CT scan showed Small groundglass opacity in the posterior right middle lobe subpleural lung. Measures about 2 x 1 cm. Consider follow-up CAT scan in 3 months. EKG changes: -Patient has incomplete right bundle branch block and left anterior fascicular block. -Her trops remained negative. -Her echo showed EF 65-70%. Supratherapeutic INR: -Patient's INR today is 3.33 -Keep holding her Coumadin. History of paroxysmal A. fib: -Continue nadolol. -INR today 3.33 History of hypertension and hyperlipidemia: -Continue nadolol and Norvasc -Continue Lipitor History of hypothyroidism: -Continue levothyroxine Bed sores: -Stage 1 bed sore on the coccygeal region. -Frequent change of position to prevent pressure. -Apply zinc ointment DVT prophylaxis: Mechanical and on coumadin already. CODE STATUS: Full code Problem List: 1. Acute respiratory failure with hypoxia 2. Pneumonia Pain Ratin Pain Location: none Pain Plan: pain pathway Tomorrow's Labs & Rationales: cbc/icu bundle Plan DVT/Prophylaxis: mechanical, pharmacological
[2017-12-16 08:00] VITALS: BP 140/68
--- NOTE | 2017-12-16 08:23 | RADIOLOGY REPORT ---
EXAMINATION: XR PORTABLE CHEST CLINICAL INFORMATION: Cough and sputum on admission. Presumptive diagnosis of pneumonia. COMPARISON: Several prior chest x-rays, most recent of which is dated 12/14/2014. TECHNIQUE: Portable AP semierect view of the chest was obtained. FINDINGS: EKG leads overlie the chest. The cardiomediastinal silhouette is enlarged. Calcification of the aorta and mild ectasia again noted. Lungs bilaterally are symmetrically hyperinflated. Mild biapical reticular opacities, unchanged from prior exam, consistent with atelectasis. Prominent costochondral calcifications are seen bilaterally. No focal consolidation, effusion or pneumothorax is seen. There is a S-shaped thoracolumbar scoliosis and diffuse osteopenia. 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 No focal pneumonia.
--- NOTE | 2017-12-16 09:43 | PN- Cardiology ---
Subjective Subjective: Telemetry reveals sinus rhythm. Patient appears comfortable. She is out of bed on a commode. Objective Vital Signs and I&Os Vital Signs Date Time Temp Pulse Resp B/P B/P Pulse O2 O2 Flow FiO2 Mean Ox Delivery Rate 12/16 0400 99 Nasal 4.0L Cannula 12/16 0000 98 Nasal 4.0L Cannula 12/16 0000 98.7 62 22 150/60 98 Nasal 4.0L Cannula 12/16 1999 97 Nasal 4.0L Cannula 12/15 1956 99 Nasal 4.0L Cannula 12/15 1600 97 Nasal 4.0L Cannula 12/15 1600 98.0 66 20 130/70 96 Nasal 4.0L Cannula 12/15 1342 94 Nasal 4.0L Cannula 12/15 1200 95 Nasal 4.0L Cannula Intake & Output 12/16 0800 12/16 0000 12/15 1600 12/15 0800 12/15 0000 Intake Total 200 380 790 100 275 Output Total 295 550 350 370 200 Balance -95 -170 440 -270 75 Intake, IV 30 270 Intake, Oral 200 350 520 100 275 Number 0 0 Bowel Movements Output, Urine 295 550 350 370 200 Patient 147 lb 149 lb Weight Weight Bed scale Measurement Method Current Medications: Current Medications Sig/Yanni Start time Last Medication Dose Route Stop Time Status Admin Acetaminophen 650 MG Q6P PRN 12/13 1814 AC PO Acetaminophen 1,000 MG Q6P PRN 12/13 181 AC IV Albuterol Sulfate 3 ML EVERY 4 HRS/AWAKE 12/14 0800 AC 12/15 INH 1145 Albuterol Sulfate 2 PUF Q4P PRN 12/13 2014 AC INH Ceftazidime 1,000 MG Q12 12/13 2100 AC 12/15 IV 2144 Guaifenesin 10 ML ONCE ONE 12/15 2330 DC 12/15 PO 12/15 2331 2334 Guaifenesin 0 .STK-MED ONE 12/15 2328 DC PO Guaifenesin 10 ML ONCE ONE 12/15 1900 DC 12/15 PO 12/15 1901 1900 Guaifenesin 0 .STK-MED ONE 12/15 1859 DC PO Guaifenesin 600 MG Q12H 12/14 1420 DC PO Patient Own 1 UNIT [email or web address] 12/15 1700 AC 12/15 Medication PO 2145 Patient Own 1 UNIT MoWeFr 12/15 1114 AC 12/15 Medication PO 1140 Patient Own 1 UNIT 1700 12/14 1700 AC 12/14 Medication PO 1614 Patient Own 1 UNIT 0700 12/14 1130 AC 12/16 Medication PO 0731 Patient Own 1 UNIT DAILY 12/14 1130 AC 12/15 Medication PO 0849 Patient Own 1 UNIT BID 12/14 1115 AC 12/15 Medication PO 2042 Prednisone 30 MG DAILY 12/16 09 AC PO Prednisone 40 MG DAILY 12/14 0900 DC 12/15 PO 0848 Vancomycin HCl 1,000 MG DAILY 12/13 2100 AC 12/15 Sodium Chloride 250 ML IV 0848 Zinc Oxide 1 LONNIE BID 12/16 09 AC TOP Results Last 48 Hrs of Labs/Mics: Laboratory Tests 12/16/17 0455: Anion Gap 3 L, Estimated GFR > 60, Glucose 101 H, Calcium 8.5, Phosphorus 2.9, Magnesium 2.2, Total Bilirubin 0.4, AST 24, ALT 28, Albumin 3.3 L, PT 36.7 H, INR 3.33 H, CBC w Diff NO MAN DIFF REQ, RBC 2.56 L, MCV 104.5 H, MCH 35.3 H, MCHC 33.8, RDW 15.7 H, MPV 8.0, Gran % 61.0, Lymphocytes % 23.8, Monocytes % 14.4 H, Eosinophils % 0.6, Basophils % 0.2, Absolute Granulocytes 3.2, Absolute Lymphocytes 1.2, Absolute Monocytes 0.8 H, Absolute Eosinophils 0, Absolute Basophils 0 12/15/17 0405: Anion Gap 5, Estimated GFR > 60, Glucose 106 H, Calcium 8.2 L, Phosphorus 3.7, Magnesium 2.3, Total Bilirubin 0.6, AST 27, ALT 32, Albumin 3.5, PT 44.6 *H, INR 4.03 *H, CBC w Diff NO MAN DIFF REQ, RBC 2.39 L, MCV 105.1 H, MCH 35.2 H, MCHC 33.5, RDW 15.9 H, MPV 8.4, Gran % 67.6, Lymphocytes % 15.2 L, Monocytes % 17.0 H, Eosinophils % 0.1, Basophils % 0.1, Absolute Granulocytes 3.2, Absolute Lymphocytes 0.7 L, Absolute Monocytes 0.8 H, Absolute Eosinophils 0, Absolute Basophils 0 Assessment/Plan Assessment/Plan In summary this 87-year-old female has a following problems 1. Paroxysmal atrial fibrillation on Coumadin, currently in sinus rhythm, INR supratherapeutic today 2. Essential hypertension stable 3. Hyperlipidemia 4. Hospital-acquired pneumonia causing respiratory insufficiency 5. Chronic incomplete right bundle branch block 6. Echocardiogram this admission shows normal LV function LVEF 65-70%, mild biatrial enlargement, mild MR, mild AI Continue telemetry? Yes
[2017-12-16 09:45] VITALS: BP 118/60
--- NOTE | 2017-12-16 09:55 | PN- CRCU ---
Subjective HPI/Critical Care Issues: The patient was sleeping initially and comfortable. She is now on 4 L nasal cannula with saturations in the high 90s. She is afebrile. She continues to improve slowly. There were no overnight events reported. Objective Current Medications: Current Medications Sig/Yanni Start time Last Medication Dose Route Stop Time Status Admin Acetaminophen 650 MG Q6P PRN 12/13 1814 AC PO Acetaminophen 1,000 MG Q6P PRN 12/13 181 AC IV Albuterol Sulfate 3 ML EVERY 4 HRS/AWAKE 12/14 0800 AC 12/15 INH 1145 Albuterol Sulfate 2 PUF Q4P PRN 12/13 2014 AC INH Ceftazidime 1,000 MG Q12 12/13 2100 AC 12/15 IV 2144 Guaifenesin 10 ML ONCE ONE 12/15 2330 DC 12/15 PO 12/15 2331 2334 Guaifenesin 0 .STK-MED ONE 12/15 2328 DC PO Guaifenesin 10 ML ONCE ONE 12/15 1900 DC 12/15 PO 12/15 1901 1900 Guaifenesin 0 .STK-MED ONE 12/15 1859 DC PO Guaifenesin 600 MG Q12H 12/14 1420 DC PO Patient Own 1 UNIT [email or web address] 12/15 1700 AC 12/15 Medication PO 2145 Patient Own 1 UNIT MoWeFr 12/15 1114 AC 12/15 Medication PO 1140 Patient Own 1 UNIT 1700 12/14 1700 AC 12/14 Medication PO 1614 Patient Own 1 UNIT 0700 12/14 1130 AC 12/16 Medication PO 0731 Patient Own 1 UNIT DAILY 12/14 1130 AC 12/15 Medication PO 0849 Patient Own 1 UNIT BID 12/14 1115 AC 12/15 Medication PO 2042 Prednisone 30 MG DAILY 12/16 09 AC PO Prednisone 40 MG DAILY 12/14 0900 DC 12/15 PO 0848 Vancomycin HCl 1,000 MG DAILY 12/13 2100 AC 12/15 Sodium Chloride 250 ML IV 0848 Zinc Oxide 1 LONNIE BID 12/16 0900 AC TOP Vital Signs & I&O Last 24 Hrs of Vitals and I&O: Vital Signs Date Time Temp Pulse Resp B/P B/P Pulse O2 O2 Flow FiO2 Mean Ox Delivery Rate 12/16 0400 99 Nasal 4.0L Cannula 12/16 0000 98 Nasal 4.0L Cannula 12/16 0000 98.7 62 22 150/60 98 Nasal 4.0L Cannula 12/16 1999 97 Nasal 4.0L Cannula 12/156 99 Nasal 4.0L Cannula 12/15 1600 97 Nasal 4.0L Cannula 12/15 1600 98.0 66 20 130/70 96 Nasal 4.0L Cannula 12/15 1342 94 Nasal 4.0L Cannula 12/15 1200 95 Nasal 4.0L Cannula Intake & Output 12/16 1600 12/16 0800 12/16 0000 Intake Total 200 380 Output Total 295 550 Balance -95 -170 Intake, IV 30 Intake, Oral 200 350 Number 0 Bowel Movements Output, Urine 295 550 Physical Exam General Appearance: Anxious, alert, awake Head: atraumatic, normal appearance Neck: normal inspection, supple Respiratory: bilateral ronchi and wheezing Cardiovascular: S1 and S2 heard Gastrointestinal: normal bowel sounds, soft, non-tender Extremities: normal inspection, no edema Neurologic/Psych: no motor/sensory deficits, awake, alert Results Last 24 Hrs of Lab Results: Laboratory Tests 12/16/17 0455: Anion Gap 3 L, Estimated GFR > 60, Glucose 101 H, Calcium 8.5, Phosphorus 2.9, Magnesium 2.2, Total Bilirubin 0.4, AST 24, ALT 28, Albumin 3.3 L, PT 36.7 H, INR 3.33 H, CBC w Diff NO MAN DIFF REQ, RBC 2.56 L, MCV 104.5 H, MCH 35.3 H, MCHC 33.8, RDW 15.7 H, MPV 8.0, Gran % 61.0, Lymphocytes % 23.8, Monocytes % 14.4 H, Eosinophils % 0.6, Basophils % 0.2, Absolute Granulocytes 3.2, Absolute Lymphocytes 1.2, Absolute Monocytes 0.8 H, Absolute Eosinophils 0, Absolute Basophils 0 Impression/Plan Impression/Plan Impression/Plan: 1. Acute hypoxemic respiratory failure secondary to pneumonia, possible healthcare associated pneumonia and tracheobronchitis. 2. Acute bronchospasm, on steroids. 3. Anemia, likely dilutional, no evidence of bleeding. 4. Delirium in the setting of sepsis/infection. 5. Anxiety. 6. Atrial fibrillation, on Coumadin with supratherapeutic INR. 7. History of hypertension -on nadolol and Norvasc. 8. GERD. 9. History of valvular heart disease. 10. Hypothyroidism, on levothyroxine. 11. Hyperlipidemia, on Lipitor. Recommendations: * Continue supplemental oxygen for saturations greater than 92%. * Continue nebs/total respiratory care in incentive spirometry. * Decrease prednisone to 20 mg today. We will continue to taper down quickly. * Hold Coumadin, monitor daily INRs. * Follow-up cardiology recommendations. * Change to ceftriaxone and azithromycin. * Physical therapy for ambulation. * Out of bed to chair, increase activity. * Continue all medications. * Downgrade to telemetry.
[2017-12-16 11:00] VITALS: BP 135/57
--- NOTE | 2017-12-16 11:40 | Transfer of Care Summary ---
Hospital Course Course Hospital Course: Reason of ICU admission: Acute hypoxic respiratory failure due to hospital-acquired pneumonia requiring BiPAP. History of presenting illness: 87 years old lady with past medical history of hypertension, hyperlipidemia and atrial fibrillation on Coumadin who is presenting with chief complaint of shortness of breath. Patient was seen earlier yesterday morning in ED with chief complaint of progressive worsening of shortness of breath that started after sore throat with productive cough. Patient was prescribed antibiotic and was sent home but later in the afternoon she was brought in again as her shortness of breath was worsening. In ED her oxygen saturation was dropping to 60s by coming back from radiology department after CT scan. Patient was placed on BiPAP and she was given albuterol and 2 g of magnesium. Patient was recently discharged from [facility] after treatment of community-acquired pneumonia on 10/05/2017 that put her high risk for hospital-acquired pneumonia. Interval events in ICU: Patient was admitted in ICU with acute hypoxic respiratory failure due to Hospital-acquired pneumonia. Patient requiring BiPAP initially. Later on her condition got better and she was put on high flow oxygen 40%. Patient was given vancomycin and ceftaz for 3 days that will state-run change the ceftriaxone and azithromycin. She remained afebrile and her WBC count remained within normal limits. Patient was given prednisone quick taper due to bronchospasm. Patient high flow oxygen was tapered and today she was started on 4 L of oxygen with nasal cannula. Patient was maintaining saturation above 92%. We will taper her oxygen maintaining her oxygen saturation above 92%. His streptococcal and Legionella urine antigen remained negative. His urine culture remained negative. His sputum culture is pending. 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 Cardiology consult was placed the recommendations were followed. Comparing her EKG to the previous EKG patient has chronic incomplete right bundle branch block. Her troponins and EKGs remain negative for any acute cardiac ischemia. Echocardiogram showed ejection fraction 6570 percent. She was on Coumadin for A. fib to prevent stroke. Possible due to drug interaction her INR was elevated yesterday. We are holding her Coumadin. We will start the Coumadin and then her INR will be less than 3. Mechanical ventilation: Never been intubated. NPPV: -On BIPAP initially transitioned to high flow and then 4L with nasal cannula. Antibiotic plan: -Received vancomycin and ceftaz for 3 days for HCAP then changed to ceftriaxone and azithromycin. -Total days of antibiotics today is day 4. Catheter/line plan: No lines Things to follow-up on the floor: -INR every day. Holding Coumadin for today as her INR was supratherapeutic. -Taper prednisone quickly. 10mg reduction every day. -Follow up with cardiology recommendations. -Patient needs outpatient follow-up for her lung nodule with CT chest in 3 months. -Follow-up sputum culture -Weaned off her oxygen as tolerated keeping her saturation above 92%. Nutrition: Heart healthy diet DVT prophylaxis: Mechanical and on coumadin CODE STATUS: Full code Assessment/Plan: Acute hypoxic respiratory failure due to pneumonia:(improving) -Possibly due to HCAP as patient was recently discharged after being treated for pneumonia that put her at risk of Hcap. -On 4 L of oxygen and maintaining saturation 98%. We will wean off her oxygen keeping her saturation above 92%. -Continue ceftaz and vancomycin day 4, changing it to ceftriaxone and azithromycin today. -Continue prednisone 20mg daily and then quick taper it for bronchospasm. -Her venous doppler remained negative for DVT. -Continue TRC nebulization -Follow-up sputum cultures. Patient is not able to bring any sputum. -Chest CT scan showed Small groundglass opacity in the posterior right middle lobe subpleural lung. Measures about 2 x 1 cm. Consider follow-up CAT scan in 3 months. EKG changes: -Patient has incomplete right bundle branch block and left anterior fascicular block. -Her trops remained negative. -Her echo showed EF 65-70%. Supratherapeutic INR: -Patient's INR today is 3.33 -Keep holding her Coumadin. History of paroxysmal A. fib: -Continue nadolol. -INR today 3.33 History of hypertension and hyperlipidemia: -Continue nadolol and Norvasc -Continue Lipitor History of hypothyroidism: -Continue levothyroxine Bed sores: -Stage 1 bed sore on the coccygeal region. -Frequent change of position to prevent pressure. -Apply zinc ointment DVT prophylaxis: Mechanical and on coumadin already. CODE STATUS: Full code
[2017-12-16 14:55] VITALS: BP 124/60
[2017-12-16 23:43] VITALS: BP 158/70
[2017-12-17 06:57] VITALS: BP 128/64
--- NOTE | 2017-12-17 07:19 | PN- Housestaff ---
Jorge Sandoval 12/17/17 0718: Subjective Follow-up For: Acute Hypoxic Resp Failure Supratherapeutic INR EKG changes Subjective: Patient seen and examined at bedside with her sons in the room. She was mostly NSR with some sinus bradycardia last night with no events on telemetry. She is still complaining of a productive cough that is mostly clear in color. She reports feeling a little bit better than yesterday. Review of Systems Constitutional: Reports: see HPI. Objective Last 24 Hrs of Vital Signs/I&O Vital Signs Date Time Temp Pulse Resp B/P B/P Pulse O2 O2 Flow FiO2 Mean Ox Delivery Rate 12/17 0927 95 Nasal 1.0L Cannula 12/17 0657 98.3 63 22 128/64 97 Nasal Cannula 12/17 0409 Nasal 2.0L Cannula 12/17 0000 Nasal 2.0L Cannula 12/16 2343 98.2 63 18 158/70 98 Nasal 2.0L Cannula 12/16 1800 97 Nasal 3.0L Cannula 12/16 1600 Nasal 3.0L Cannula 12/16 1455 97.9 67 20 124/60 95 Nasal 3.0L Cannula 12/16 1100 66 22 135/57 98 Nasal 4.0L Cannula 12/16 1026 95 Nasal 3.0L Cannula Intake & Output 12/17 1600 12/17 0800 12/17 0000 Intake Total 300 Output Total 150 350 Balance -150 -50 Intake, Oral 300 Output, Urine 150 350 Patient 151 lb Weight Physical Exam General Appearance: Alert, Cooperative, No Acute Distress HEENT: Atraumatic, Normocephalic Neck: Supple Cardiovascular: Regular Rate, Normal S1, Normal S2 Lungs: bibasalar crackles and wheezing Abdomen: Soft, No Tenderness Extremities: No Tenderness/Swelling Current Medications: Current Medications Sig/Yanni Start time Last Medication Dose Route Stop Time Status Admin Acetaminophen 650 MG Q6P PRN 12/13 1814 AC PO Acetaminophen 1,000 MG Q6P PRN 12/13 1814 AC IV Albuterol Sulfate 3 ML EVERY 4 HRS/AWAKE 12/15 799 AC 12/17 INH 0925 Albuterol Sulfate 2 PUF Q4P PRN 12/13 2014 AC INH Azithromycin 500 MG DAILY 12/17 899 AC Sodium Chloride 250 ML IV Ceftriaxone Sodium 1,000 MG DAILY 12/17 899 AC IV Guaifenesin 10 ML AT BEDTIME PRN 12/17 0530 AC PO Guaifenesin 0 .STK-MED ONE 12/17 0017 DC PO Guaifenesin 10 ML ONCE ONE 12/17 0015 DC 12/17 PO 12/17 0016 0016 Patient Own 1 UNIT [email or web address] 12/15 1700 AC 12/15 Medication PO 2145 Patient Own 1 UNIT MoWeFr 12/15 1114 AC 12/15 Medication PO 1140 Patient Own 1 UNIT 1700 12/14 1700 AC 12/14 Medication PO 1614 Patient Own 1 UNIT 0700 12/14 1130 AC 12/17 Medication PO 0643 Patient Own 1 UNIT DAILY 12/14 1130 AC 12/17 Medication PO 0842 Patient Own 1 UNIT BID 12/14 1115 AC 12/17 Medication PO 0842 Prednisone 20 MG DAILY 12/17 0900 AC PO Zinc Oxide 1 LONNIE BID 12/16 0900 AC 12/17 TOP 0842 Last 24 Hrs of Lab/Parish Results Last 24 Hrs of Labs/Mics: Laboratory Tests 12/17/17 0940: Anion Gap 7, Estimated GFR > 60, BUN/Creatinine Ratio 27.1 H 12/17/17 0927: PT 25.7 H, INR 2.34 H, CBC w Diff NO MAN DIFF REQ, RBC 2.67 L, MCV 104.8 H, MCH 35.3 H, MCHC 33.7, RDW 15.9 H, MPV 8.8, Gran % 64.8, Lymphocytes % 27.5, Monocytes % 7.1, Eosinophils % 0.6, Basophils % 0, Absolute Granulocytes 4.0, Absolute Lymphocytes 1.7, Absolute Monocytes 0.4, Absolute Eosinophils 0, Absolute Basophils 0 12/17/17 0500: Sodium Cancelled, Potassium Cancelled, Chloride Cancelled, Carbon Dioxide Cancelled, Anion Gap Cancelled, BUN Cancelled, Creatinine Cancelled, Glucose Cancelled, Calcium Cancelled, Phosphorus Cancelled, Magnesium Cancelled, Total Bilirubin Cancelled, AST Cancelled, ALT Cancelled, Albumin Cancelled Microbiology 12/16 1130 LOWER RESP: Respiratory Culture - RES YEAST 12/16 113 LOWER RESP: Gram Stain - RES Assessment/Plan Assessment: 87yo F with past medical history of hypertension, hyperlipidemia and atrial fibrillation on Coumadin who is presenting with chief complaint of shortness of breath. Patient was admitted to ICU and later transferred to telemetry for the management of following issues Acute hypoxic respiratory failure due to pneumonia: possibly dt HCAP considering recent discharge (improving) -On 1 L of oxygen and maintaining saturation 95% -Wean off oxygen keeping saturation above 92% -Continue Cftx and Azithro Day 2 -Quick taper prednisone for bronchospasm (10mg tmrw) -Continue TRC nebulization -Follow-up sputum cultures EKG changes: -Patient has incomplete RBBB and LAFB -Trops Neg -Echo: EF 65-70% Paroxysmal Afib with Supratherapeutic INR: -INR today is 2.34 -Dose Coumadin -Continue Nadolol History of hypertension and hyperlipidemia: -Continue nadolol and Norvasc -Continue Lipitor History of hypothyroidism: -Continue levothyroxine Bed sore: -Stage 1 bed sore on the coccygeal region -Frequent change of position to prevent pressure -Apply zinc ointment Heart Healthy Diet DVT ppx Full Code Today's INR came back in therapeutic range 2.34 Problem List: 1. Acute respiratory failure with hypoxia Pain Ratin Pain Location: NA Pain Goal: Remain pain free Pain Plan: Per pathway Tomorrow's Labs & Rationales: INR Vanessa Guzman MD 12/17/17 1014: Attending MD Review Statement Attending Statement Attending MD Statement: examined this patient, discuss w/resident/PA/FREIGHT LOADING SUPERVISOR, agreed w/resident/PA/FREIGHT LOADING SUPERVISOR, discussed with family, reviewed EMR data (avail), discussed with nursing, discussed with case mgmt, reviewed images Attending Assessment/Plan: 87-year-old female transferred from the ICU to my care. She has a history of hypertension, atrial fibrillation Coumadin and was admitted with acute respiratory failure with a pneumonia. She was initially treated for a gram- negative M&M MRSA pneumonia and is now being treated for a community-acquired pneumonia with ceftriaxone and azithro. She has underlying obstructive lung disease and was treated for COPD exacerbation is now on a prednisone taper. Her INR was supratherapeutic and we are following that and dosing the Coumadin appropriately. PT is recommending STR but the patient is keen on going home, her 2 sons are with her and 1 of them is a track mechanic who practices in [place]. The plan is for PT to reevaluate and if she meets her goals then likely home PT.
--- NOTE | 2017-12-17 08:13 | PN- Pulmonary ---
Subjective HPI/Critical Care Issues: The patient is awake and alert. She is saturating well on 2 L nasal cannula. The patient continues to have a congested cough, productive of yellow thick sputum. She slept for only a few hours overnight, however this is an improvement overall. Objective Current Medications: Current Medications Sig/Yanni Start time Last Medication Dose Route Stop Time Status Admin Acetaminophen 650 MG Q6P PRN 12/13 1814 AC PO Acetaminophen 1,000 MG Q6P PRN 12/13 181 AC IV Albuterol Sulfate 3 ML EVERY 4 HRS/AWAKE 12/14 08 AC 12/17 INH 0407 Albuterol Sulfate 2 PUF Q4P PRN 12/13 2014 AC INH Azithromycin 500 MG DAILY 12/17 899 AC Sodium Chloride 250 ML IV Ceftazidime 1,000 MG Q12 12/13 2099 DC 12/16 IV 1045 Ceftriaxone Sodium 1,000 MG DAILY 12/17 899 AC IV Guaifenesin 10 ML AT BEDTIME PRN 12/17 0530 AC PO Guaifenesin 0 .STK-MED ONE 12/17 0017 DC PO Guaifenesin 10 ML ONCE ONE 12/17 0015 DC 12/17 PO 12/17 0016 0016 Patient Own 1 UNIT [email or web address] 12/15 1700 AC 12/15 Medication PO 2145 Patient Own 1 UNIT MoWeFr 12/15 1114 AC 12/15 Medication PO 1140 Patient Own 1 UNIT 1700 12/14 1700 AC 12/14 Medication PO 1614 Patient Own 1 UNIT 0700 12/14 1130 AC 12/17 Medication PO 0643 Patient Own 1 UNIT DAILY 12/14 1130 AC 12/16 Medication PO 0953 Patient Own 1 UNIT BID 12/14 1115 AC 12/16 Medication PO 2021 Prednisone 20 MG DAILY 12/17 09 AC PO Prednisone 30 MG DAILY 12/16 09 DC 12/16 PO 0952 Vancomycin HCl 1,000 MG DAILY 12/13 2100 DC 12/16 Sodium Chloride 250 ML IV 1058 Zinc Oxide 1 LONNIE BID 12/16 09 AC 12/16 TOP 2038 Vital Signs & I&O Last 24 Hrs of Vitals and I&O: Vital Signs Date Time Temp Pulse Resp B/P B/P Pulse O2 O2 Flow FiO2 Mean Ox Delivery Rate 12/17 0657 98.3 63 22 128/64 97 Nasal Cannula 12/17 0409 Nasal 2.0L Cannula 12/17 0000 Nasal 2.0L Cannula 12/16 2343 98.2 63 18 158/70 98 Nasal 2.0L Cannula 12/16 1800 97 Nasal 3.0L Cannula 12/16 1600 Nasal 3.0L Cannula 12/16 1455 97.9 67 20 124/60 95 Nasal 3.0L Cannula 12/16 1100 66 22 135/57 98 Nasal 4.0L Cannula 12/16 1026 95 Nasal 3.0L Cannula 12/16 0947 Nasal 4.0L Cannula 12/16 0945 66 118/60 12/16 0938 Nasal 4.0L Cannula Intake & Output 12/17 1600 12/17 0800 12/17 0000 Intake Total 300 Output Total 150 350 Balance -150 -50 Intake, Oral 300 Output, Urine 150 350 Patient 151 lb Weight Physical Exam General Appearance: comfortable, alert, awake Head: atraumatic, normal appearance Neck: normal inspection, supple Respiratory: bilateral ronchi, scattered wheezes Cardiovascular: S1 and S2+ Gastrointestinal: normal bowel sounds, soft, non-tender Extremities: normal inspection, no edema Neurologic/Psych: no motor/sensory deficits, awake, alert Results Last 24 Hrs of Lab Results: Laboratory Tests 12/17/17 0500: Sodium Cancelled, Potassium Cancelled, Chloride Cancelled, Carbon Dioxide Cancelled, Anion Gap Cancelled, BUN Cancelled, Creatinine Cancelled, Glucose Cancelled, Calcium Cancelled, Phosphorus Cancelled, Magnesium Cancelled, Total Bilirubin Cancelled, AST Cancelled, ALT Cancelled, Albumin Cancelled Impression/Plan Impression/Plan Impression/Plan: 1. Acute hypoxemic respiratory failure secondary to pneumonia, and tracheobronchitis. 2. Acute bronchospasm, on steroids. 3. Anemia, likely dilutional, no evidence of bleeding. 4. Atrial fibrillation, on Coumadin, INR pending. 5. Anxiety. 6. History of hypertension -on nadolol and Norvasc. 7. GERD. 8. History of valvular heart disease. 9. Hypothyroidism, on levothyroxine. 10. Hyperlipidemia, on Lipitor. Recommendations: * Monitor off isolation as the patient's last MRSA swab was greater than 10 years ago. * Taper oxygen down for saturations greater than 92%. * Continue prednisone 20 mg daily. Will taper down quickly. * Monitor daily INRs. Dose coumadin accordingly. * Continue ceftriaxone and azithromycin. * Continue out of bed to chair regularly and physical therapy. * Continue nebs/total respiratory care. * Continue all current medications. * Telemetry monitoring per cardiology. * I updated the patient's family at the bedside this morning. * Continue all supportive care.
[2017-12-17 08:30] VITALS: BP 158/64
[2017-12-17 10:16] LABS: ABSOLUTE BASOPHIL COUNT 0 /CUMM (0.0-0.2); ABSOLUTE EOSINOPHIL COUNT 0 /CUMM (0.0-0.7); ABSOLUTE LYMPH COUNT 1.7 /CUMM (1.2-3.4); ABSOLUTE MONOCYTE COUNT 0.4 /CUMM (0.10-0.60); BASOPHIL % 0 % (0.0-2.0); EOSINOPHIL % 0.6 % (0-5); GRANULOCYTE % 64.8 % (42.2-75.2); MEAN CORPUSCULAR HGB 35.3 PG (27.0-31.0); MEAN CORPUSCULAR HGB CONC 33.7 G/DL (33.0-37.0); MEAN CORPUSCULAR VOLUME 104.8 FL (81.0-99.0); MEAN PLATELET VOLUME 8.8 FL (7.4-10.4); PLATELET COUNT 246 /CUMM (130-400); RBC DISTRIBUTION WIDTH 15.9 % (11.5-14.5); RED BLOOD CELL CT 2.67 /CUMM (4.20-5.40); WHITE BLOOD CELL COUNT 6.2 /CUMM (4.8-10.8)
[2017-12-17 10:21] LABS: PT 25.7 SEC (9.4-12.5)
--- NOTE | 2017-12-17 12:26 | Discharge Summary ---
Visit Information Visit Dates Admission Date: 12/13/17 Discharge Date: 12/17/17 Hospital Course Course Attending Physician: Vanessa Guzman MD Primary Care Physician: Aaron Tejeda MD Hospital Course: 87 years old lady with past medical history of hypertension, hyperlipidemia and atrial fibrillation on Coumadin who is presenting with chief complaint of shortness of breath. Patient was admitted to ICU and later transferred to telemetry for the management of following issues; 1. Acute hypoxic respiratory failure due to Hospital-acquired pneumonia. Patient required BiPAP initially and transitioned to high flow oxygen 40% and then to oxygen via nasal canula, remained on 1 L at the time of discharge. Patient was given vancomycin and ceftaz for 3 days then swtiched to ceftin( received days of Abx). Her streptococcal and Legionella urine antigen remained negative as well as her urine culture. Her sputum culture was positive for yeast only. She remained afebrile and her WBC count remained within normal limits. Patient was also started on IV solumedrol and switched to prednisone quick taper for bronchospasm. 2. Patient has right incomplete bundle branch block which appeared to be chronic. Her troponins and EKGs remained negative for any acute cardiac ischemia. Cardiology consult was placed, recommended obtaining an echocardiogram which showed normal EF with no regional wall motion abnormalities. 3. PAroxysmal A.fib with Supratherapeutic INR; She was on Coumadin for A. fib. Her INR was elevated during the hospital stay possible due to drug interaction/ antibiotic use. Her coumadin was held initially and once therapeutic was dosed according to her INR. 4. Hx of HTN and HLD; Home medications were continued. Her Chest CT scan showed Small groundglass opacity in the posterior right middle lobe subpleural lung which measured about 2 x 1 cm. Patient advised to do a follow-up with her special service representative and do a repeat CAT scan in 3 months. Allergies: Coded Allergies: NO KNOWN ALLERGIES (07/17/12) Significant Procedures: CT CHEST WO IV CONTRAST IMPRESSION: 1. Small groundglass opacity in the posterior right middle lobe subpleural lung. Measures about 2 x 1 cm. Consider follow-up CAT scan in 3 months. The Fleischner Society recommendations for incidental sub-solid pulmonary nodules are as follows: Solitary pure ground glass nodule < or = to 5 mm: No follow up needed. Solitary pure ground glass nodule > 5 mm: Follow up CT at 3 months; if unchanged, annual CT for at least 3 years. Solitary part-solid nodule: Follow up CT at 3 months; if persistent and solid component < 5 mm, annual CT for at least 3 years. If persistent and solid component > or = 5 mm, biopsy or resection. Multiple pure ground glass sub-solid nodules < or = to 5mm: CT at 2 and 4 years. Multiple pure ground glass sub-solid nodules > 5mm, no dominant lesion: Follow up CT at 3 months; if unchanged, annual CT for at least 3 years. Dominant nodule(s) with part-solid or solid component: Follow up CT at 3 months; if persistent, biopsy or resection. US-EXT BILAT VENOUS DOPPLER IMPRESSION: No evidence of deep venous thrombosis involving the bilateral lower extremities. XRY-PORTABLE CHEST XRAY IMPRESSION: No acute pulmonary process. Chronic lung disease. ECHOCARDIOGRAM CONCLUSIONS Normal left and right ventricular systolic function. Left atrial enlargement. Mild Mitral and tricuspid Regurgitation without Pulmonary hypertension. XRY-PORTABLE CHEST XRAY IMPRESSION: Findings are consistent with obstructive lung disease and mild chronic biapical scarring. No focal pneumonia. Disposition Summary Disposition Principal Diagnosis: Acute hypoxic respiratory failure due to Hospital-acquired pneumonia. Additional Diagnosis: Chronic incomplete right bundle branch block Paroxysmal A.fib with Supratherapeutic INR Hx of HTN and HLD Discharge Disposition: home health services Discharge Instructions General Discharge Information Code Status: Full Code Patient's Diet: Regular Patient's Activity: As tolerated Follow-Up Instructions/Appts: Follow up with PCP, it program auditor and special service representative within a week after discharge. Patient needs outpatient follow-up for her lung nodule with CT chest in 3 months. Medications at Discharge Discharge Medications: Stop taking the following medications: Azithromycin (Zithromax) 500 MG TABLET ORAL DAILY Qty = 2 Amoxicillin (Amoxicillin) 875 MG TABLET ORAL TWICE DAILY Qty = 4 Doxycycline Hyclate (Vibramycin) 100 MG CAPSULE ORAL TWICE DAILY Qty = 14 Codeine Phosphate/Guaifenesi (Guaifenesin AC Cough Syrup) 10 MG-100 MG/5 ML LIQUID ORAL Every night as needed for COUGH Qty = 4 Continue taking these medications: Atorvastatin Calcium (Lipitor) 10 MG TABLET 1 Tablet ORAL DAILY Comments: Last Taken: 12/20/17 Time: 8:20 PM Levothyroxine Sodium (Synthroid) 50 MCG TABLET 1 Tablet ORAL DAILY Comments: Last Taken: 12/22/17 Time: 6:30 AM Amlodipine Besylate (Norvasc) 5 MG TABLET 1 Tablet ORAL Every Morning Comments: Last Taken: 12/22/17 Time: 9:30 AM Nadolol (Corgard) 20 MG TABLET 20 Milligram ORAL TWICE DAILY Comments: Last Taken: 12/22/17 Time: 9:30 AM Warfarin Sodium (Coumadin) 2 MG TABLET 1 Tablet ORAL DAILY Instructions: Please hold for today and resume once INR is repeated. Dosed per INR Comments: Last Taken: 12/21/17 Time: 6:20 PM Rabeprazole Sodium (Aciphex) 20 MG TABLET.DR 1 Tablet ORAL WEDNESDAY, WEDNESDAY AND WEDNESDAY Comments: Last Taken: 12/22/17 Time: 07:00 AM Amlodipine (Norvasc) 2.5 MG TABLET 1 Tablet ORAL Every night Comments: NOT GIVEN IN HOSPITAL. Albuterol Sulfate (Proair Hfa) 90 MCG HFA.AER.AD 2 Puff Inhale through mouth Q6 as needed for BRONCHITIS Qty = 1 Comments: NOT GIVEN IN HOSPITAL. Copies To: Gallo Sanders MD; Sheryl MATAMOROS,Maria Isabel Cornelius; Nikhil MATAMOROS,Aaron Holloway
--- NOTE | 2017-12-17 16:14 | Patient Discharge Instructions ---
Acute Coronary Syndrome Inclusion Criteria At DC or during hospital stay patient has or had the following: Discharge Core Measures Meds if any: Prescribed or Continued at Discharge Meds if any: NOT Prescribed or Continued at Discharge Congestive Heart Failure Inclusion Criteria At DC or during hospital stay patient has or had the following: Discharge Core Measures Meds if any: Prescribed or Continued at Discharge Meds if any: NOT Prescribed or Continued at Discharge Cerebrovascular accident Inclusion Criteria At DC or during hospital stay patient has or had the following: CVA/TIA Diagnosis No Discharge Core Measures Meds if any: Prescribed or Continued at Discharge Meds if any: NOT Prescribed or Continued at Discharge Venous thromboembolism Discharge Core Measures - Per Current guidelines, there needs to be overlap - treatment for the first 5 days of Warfarin therapy. - If discharged on Warfarin prior to 5 days of - overlap therapy, the patient will need to be - assessed for post discharge needs including - *Post discharge parental anticoagulation - *Warfarin and/or parental anticoagulation education - *Follow up date to check INR post discharge Meds if any: Prescribed or Continued at Discharge Note: Overlap Therapy is Warfarin and Anticoagulant Meds if any: NOT Prescribed or Continued at Discharge
[2017-12-17 22:59] VITALS: BP 148/66
--- NOTE | 2017-12-18 03:37 | Patient Discharge Instructions ---
Discharge Instructions General Discharge Information You were seen/treated for: Acute Hypoxic Respiratory Failure due to Pneumonia Paroxysmal Afib with Supratherapeutic INR EKG changes indicating incomplete RBBB You had these procedures: Chest CT, Echocardiogram, Lower Extremity Venous Doppler, CXR x2 Watch for these problems: Any signs of acute hypoxic respiratory failure, any acute cardiac symptoms, any chest pain, shortness of breath, sudden fatigue, dizziness, please go to ER immediately. Special Instructions: Please follow up with your PCP, Machine Cutter, and Wringer Operator in one week. Diet Continue normal diet: No Recommended Diet: Heart Healthy Activity Full Activity/No Limits: No Activity Self Limited: Yes Acute Coronary Syndrome Inclusion Criteria At DC or during hospital stay patient has or had the following: ACS DIAGNOSIS No Discharge Core Measures Meds if any: Prescribed or Continued at Discharge Meds if any: NOT Prescribed or Continued at Discharge Congestive Heart Failure Inclusion Criteria At DC or during hospital stay patient has or had the following: CHF DIAGNOSIS No Discharge Core Measures Meds if any: Prescribed or Continued at Discharge Meds if any: NOT Prescribed or Continued at Discharge Cerebrovascular accident Inclusion Criteria At DC or during hospital stay patient has or had the following: CVA/TIA Diagnosis No Discharge Core Measures Meds if any: Prescribed or Continued at Discharge Meds if any: NOT Prescribed or Continued at Discharge Venous thromboembolism Inclusion Criteria VTE Diagnosis No VTE Type NONE VTE Confirmed by (Test) NONE Discharge Core Measures - Per Current guidelines, there needs to be overlap - treatment for the first 5 days of Warfarin therapy. - If discharged on Warfarin prior to 5 days of - overlap therapy, the patient will need to be - assessed for post discharge needs including - *Post discharge parental anticoagulation - *Warfarin and/or parental anticoagulation education - *Follow up date to check INR post discharge At least 5 days overlap therapy as Inpatient No Meds if any: Prescribed or Continued at Discharge Note: Overlap Therapy is Warfarin and Anticoagulant Meds if any: NOT Prescribed or Continued at Discharge
[2017-12-18 06:30] VITALS: BP 152/68
[2017-12-18 08:36] LABS: PT 25.4 SEC (9.4-12.5)
--- NOTE | 2017-12-18 08:45 | PN- Housestaff ---
DylanSarayjonathan 12/18/17 0845: Subjective Follow-up For: Pneumonia Subjective: No acute events overnight, afebrile. Patient is complaining of postnasal drip, which is causing her to cough. Denies fever, night sweats, chills Review of Systems Constitutional: Reports: see HPI. Objective Last 24 Hrs of Vital Signs/I&O Vital Signs Date Time Temp Pulse Resp B/P B/P Pulse O2 O2 Flow FiO2 Mean Ox Delivery Rate 12/18 0630 98.3 62 20 152/68 94 12/17 2259 98.1 62 20 148/66 94 Nasal 1.5L Cannula 12/17 2037 94 Nasal 1.5L Cannula 12/17 1807 18 94 Nasal 1.5L Cannula 12/17 1620 93 Nasal 1.0L Cannula 12/17 0927 95 Nasal 1.0L Cannula Intake & Output 12/18 1600 12/18 0800 12/18 0000 Intake Total Output Total 200 200 Balance -200 -200 Output, Urine 200 200 Patient 144 lb Weight Weight Bed scale Measurement Method Physical Exam General Appearance: Alert, Oriented X3, Cooperative Cardiovascular: Regular Rate, Normal S1, Normal S2 Lungs: RHONCHI APPRECIATED IN UPPER LOBE BILAT. , MINIMAL WHEEEZING Abdomen: Normal Bowel Sounds, Soft, No Tenderness Current Medications: Current Medications Sig/Yanni Start time Last Medication Dose Route Stop Time Status Admin Acetaminophen 650 MG Q6P PRN 12/13 1814 AC PO Acetaminophen 1,000 MG Q6P PRN 12/13 181 AC IV Albuterol Sulfate 3 ML EVERY 4 HRS/AWAKE 12/14 0800 AC 12/18 INH 1152 Albuterol Sulfate 2 PUF Q4P PRN 12/13 2014 AC INH Azithromycin 500 MG DAILY 12/17 09 AC 12/18 Sodium Chloride 250 ML IV 1000 Ceftriaxone Sodium 1,000 MG DAILY 12/17 0900 AC 12/18 IV 0959 Guaifenesin 10 ML AT BEDTIME PRN 12/17 0530 AC PO Patient Medication 1 ED ONE ONE 12/17 1500 DC Teaching ED 12/17 1501 Patient Own 1 UNIT [id number] 12/17 2100 AC 12/17 Medication PO 2029 Patient Own 1 UNIT [id number] 12/15 1700 DC 12/15 Medication PO 2145 Patient Own 1 UNIT MoWeFr 12/15 1114 AC 12/17 Medication PO 1144 Patient Own 1 UNIT 1700 12/14 1700 AC 12/17 Medication PO 1706 Patient Own 1 UNIT 0700 12/14 1130 AC 12/18 Medication PO 0602 Patient Own 1 UNIT DAILY 12/14 1130 AC 12/18 Medication PO 0957 Patient Own 1 UNIT BID 12/14 1115 AC 12/18 Medication PO 0957 Prednisone 10 MG DAILY 12/18 0900 AC 12/18 PO 0959 Prednisone 20 MG DAILY 12/17 0900 DC 12/17 PO 1143 Warfarin Sodium 2 MG COUMADIN 1700 ONE 12/18 1700 AC PO 12/18 1701 Warfarin Sodium 2 MG COUMADIN 1700 ONE 12/17 1700 DC PO 12/17 1701 Zinc Oxide 1 LONNIE BID 12/16 0900 AC 12/18 TOP 1000 Last 24 Hrs of Lab/Parish Results Last 24 Hrs of Labs/Mics: Laboratory Tests 12/18/17 0610: PT 25.4 H, INR 2.31 H Assessment/Plan Assessment: 87yo F with past medical history of hypertension, hyperlipidemia and atrial fibrillation on Coumadin who is presenting with chief complaint of shortness of breath. Patient was admitted to ICU and later transferred to telemetry for the management of following issues Acute hypoxic respiratory failure due to pneumonia: possibly dt HCAP considering recent discharge (improving) -Try to wean patient off of oxygen today at baseline she does not require home oxygen, patient saturation dropped to 88%. -On 1 L of oxygen and maintaining saturation 95% -Start Cefin 250mg BID Day 1. and Azithro Day 3 -Continue Prednisone 10mg, per pulm recs. -Continue TRC nebulization -Follow-up sputum cultures EKG changes: -Patient has incomplete RBBB and LAFB -Trops Neg -Echo: EF 65-70% Paroxysmal Afib with Supratherapeutic INR: -INR today is 2.31 -Dose Coumadin -Continue Nadolol History of hypertension and hyperlipidemia: -Continue nadolol and Norvasc -Continue Lipitor History of hypothyroidism: -Continue levothyroxine Bed sore: -Stage 1 bed sore on the coccygeal region -Frequent change of position to prevent pressure -Apply zinc ointment Heart Healthy Diet DVT ppx Full Code Problem List: 1. Bronchitis Pain Ratin Pain Location: n/a Pain Goal: Remain pain free Pain Plan: tylenol Tomorrow's Labs & Rationales: cbc, bep, inr Vicky MATAMOROS,Amir 12/18/17 1202: Attending MD Review Statement Attending Statement Attending MD Statement: examined this patient, discuss w/resident/PA/PERSONNEL ASSISTANT, agreed w/resident/PA/PERSONNEL ASSISTANT, discussed with family, reviewed EMR data (avail), discussed with nursing Attending Assessment/Plan: Ms. Avila was seen and evalauted. Chart reviewed. She is a pleasant elderly woman tx from ICU still requiring supp O2. Also has cough. --cont IV abx for now --cont Neb tx, titrate O2 as tolerated --agree with PT eval --rest of the plan as per resident's note
--- NOTE | 2017-12-18 11:36 | PN- Pulmonary ---
Subjective HPI/Critical Care Issues: No acute events overnight, afebrile. Patient is complaining of postnasal drip, which is causing her to cough. Denies fever, night sweats, chills Review of Systems Constitutional: Reports: see HPI. Objective Current Medications: Current Medications Sig/Yanni Start time Last Medication Dose Route Stop Time Status Admin Acetaminophen 650 MG Q6P PRN 12/13 1814 AC PO Acetaminophen 1,000 MG Q6P PRN 12/13 181 AC IV Albuterol Sulfate 3 ML EVERY 4 HRS/AWAKE 12/14 08 AC 12/18 INH 0910 Albuterol Sulfate 2 PUF Q4P PRN 12/13 2014 AC INH Azithromycin 500 MG DAILY 12/17 09 AC 12/18 Sodium Chloride 250 ML IV 1000 Ceftriaxone Sodium 1,000 MG DAILY 12/17 09 AC 12/18 IV 0959 Guaifenesin 10 ML AT BEDTIME PRN 12/17 0530 AC PO Patient Medication 1 ED ONE ONE 12/17 1500 NH Teaching ED 12/17 1501 Patient Own 1 UNIT [id number] 12/17 2100 AC 12/17 Medication PO 2029 Patient Own 1 UNIT [id number] 12/15 1700 DC 12/15 Medication PO 2145 Patient Own 1 UNIT MoWeFr 12/15 1114 AC 12/17 Medication PO 1144 Patient Own 1 UNIT 1700 12/14 1700 AC 12/17 Medication PO 1706 Patient Own 1 UNIT 0700 12/14 1130 AC 12/18 Medication PO 0602 Patient Own 1 UNIT DAILY 12/14 1130 AC 12/18 Medication PO 0957 Patient Own 1 UNIT BID 12/14 1115 AC 12/18 Medication PO 0957 Prednisone 10 MG DAILY 12/18 09 AC 12/18 PO 0959 Prednisone 20 MG DAILY 12/17 0900 DC 12/17 PO 1143 Warfarin Sodium 2 MG COUMADIN 1700 ONE 12/18 1700 AC PO 12/18 1701 Warfarin Sodium 2 MG COUMADIN 1700 ONE 12/17 1700 DC PO 12/17 1701 Zinc Oxide 1 LONNIE BID 12/16 0900 AC 12/18 TOP 1000 Vital Signs & I&O Last 24 Hrs of Vitals and I&O: Vital Signs Date Time Temp Pulse Resp B/P B/P Pulse O2 O2 Flow FiO2 Mean Ox Delivery Rate 12/18 0948 93 Nasal 2.0L Cannula 12/18 0800 Room Air 2.0L 12/18 0630 98.3 62 20 152/68 94 12/17 2259 98.1 62 20 148/66 94 Nasal 1.5L Cannula 12/17 2037 94 Nasal 1.5L Cannula 12/17 1807 18 94 Nasal 1.5L Cannula 12/17 1620 93 Nasal 1.0L Cannula Intake & Output 12/18 1600 12/18 0800 12/18 0000 Intake Total Output Total 200 200 Balance -200 -200 Output, Urine 200 200 Patient 144 lb Weight Weight Bed scale Measurement Method Impression/Plan Impression/Plan Impression/Plan: General Appearance: comfortable, alert, awake Head: atraumatic, normal appearance Neck: normal inspection, supple Respiratory: bilateral ronchi, scattered wheezes Cardiovascular: S1 and S2+ Gastrointestinal: normal bowel sounds, soft, non-tender Extremities: normal inspection, no edema Neurologic/Psych: no motor/sensory deficits, awake, alert Impression/Plan: 1. Resolvedacute hypoxemic respiratory failure secondary lower respiratory infection 2. Acute bronchospasm, on steroids. 3. Anemia, likely dilutional, no evidence of bleeding. 4. Atrial fibrillation, on Coumadin, INR pending. 5. Anxiety. 6. History of hypertension -on nadolol and Norvasc. 7. GERD. 8. History of valvular heart disease. 9. Hypothyroidism, on levothyroxine. 10. Hyperlipidemia, on Lipitor. RECOMMENDATION Continue prednisone for a few more days and taper off Switch to p.o. antibiotics with p.o. Ceftin 250 twice daily. Make sure the patient has received minimum of 3 days of azithromycin Nebulizer therapy Increase activity Continue all other supportive care Watch INR We will follow closely Discussed with patient and son at bedside
[2017-12-18] MEDS ORDERED: CEFTIN250 MG/51 PO (14:17)
[2017-12-18 14:51] VITALS: BP 130/54
[2017-12-18 22:11] VITALS: BP 132/56
[2017-12-19 06:35] VITALS: BP 138/62
[2017-12-19 08:07] LABS: ABSOLUTE BASOPHIL COUNT 0 /CUMM (0.0-0.2); ABSOLUTE EOSINOPHIL COUNT 0.1 /CUMM (0.0-0.7); ABSOLUTE GRANULOCYTE CT 4.1 /CUMM (1.4-6.5); ABSOLUTE LYMPH COUNT 1.5 /CUMM (1.2-3.4); ABSOLUTE MONOCYTE COUNT 0.8 /CUMM (0.10-0.60); BASOPHIL % 0.6 % (0.0-2.0); EOSINOPHIL % 2.1 % (0-5); GRANULOCYTE % 62.6 % (42.2-75.2); HEMATOCRIT 28.4 % (37-47); MEAN CORPUSCULAR HGB 35.7 PG (27.0-31.0); MEAN CORPUSCULAR HGB CONC 34.5 G/DL (33.0-37.0); MEAN CORPUSCULAR VOLUME 103.5 FL (81.0-99.0); MEAN PLATELET VOLUME 8.2 FL (7.4-10.4); PLATELET COUNT 289 /CUMM (130-400); RBC DISTRIBUTION WIDTH 15.7 % (11.5-14.5); RED BLOOD CELL CT 2.75 /CUMM (4.20-5.40); WHITE BLOOD CELL COUNT 6.6 /CUMM (4.8-10.8)
[2017-12-19 08:13] LABS: PT 32.6 SEC (9.4-12.5)
--- NOTE | 2017-12-19 09:00 | PN- Housestaff ---
Jorge Sandoval 12/19/17 0900: Subjective Follow-up For: Acute hypoxemic respiratory failure Pneumonia Subjective: Patient seen and examined at bedside with her sons and grandson at bedside. No events on telemetry. No events per nursing. She is back on 1 L of oxygen as she desaturated to high 80s without oxygen. She reports some right shoulder pain after her physical therapy session. She reports coughing up some yellow colored phlegm. She is happy to be eating regular diet again. She has no new complaints otherwise. Review of Systems Constitutional: Reports: see HPI. Objective Last 24 Hrs of Vital Signs/I&O Vital Signs Date Time Temp Pulse Resp B/P B/P Pulse O2 O2 Flow FiO2 Mean Ox Delivery Rate 12/19 1211 94 Nasal 1.0L Cannula 12/19 0806 Nasal 2.0L Cannula 12/19 0635 98.4 64 20 138/62 94 Nasal 2.0L Cannula 12/18 2247 94 Nasal 2.0L Cannula 12/18 2211 97.8 71 20 132/56 95 Nasal Cannula 12/18 2201 Nasal 2.0L Cannula 12/18 1851 94 Nasal 1.5L Cannula Intake & Output 12/19 1600 12/19 0800 12/19 0000 Intake Total 850 120 300 Output Total 400 600 200 Balance 450 -480 100 Intake, IV 250 Intake, Oral 600 120 300 Number 1 Bowel Movements Output, Urine 400 600 200 Patient 145 lb Weight Weight Bed scale Measurement Method Physical Exam General Appearance: Alert, Cooperative, No Acute Distress HEENT: Atraumatic, Normocephalic Cardiovascular: Regular Rate, Normal S1, Normal S2 Lungs: slight diffuese BL crackles and wheezing Abdomen: Normal Bowel Sounds, Soft, No Tenderness Assessment/Plan Assessment: 87yo F with past medical history of hypertension, hyperlipidemia and atrial fibrillation on Coumadin who is presenting with chief complaint of shortness of breath. Patient was admitted to ICU and later transferred to telemetry for the management of following issues Acute hypoxic respiratory failure due to pneumonia: possibly dt HCAP considering recent discharge (improving) -On 1 L of oxygen (sats drop to 88% when off) -Wean off oxygen keeping saturation above 92% -Conitnue Ceftin 250mg BID -Quick taper prednisone for bronchospasm (10mg) -Continue TRC nebulization -Follow-up sputum cultures EKG changes: -Patient has incomplete RBBB and LAFB -Trops Neg -Echo: EF 65-70% Paroxysmal Afib with Supratherapeutic INR: -INR today is 2.34 -Dose Coumadin -Continue Nadolol History of hypertension and hyperlipidemia: -Continue nadolol and Norvasc -Continue Lipitor History of hypothyroidism: -Continue levothyroxine Bed sore: -Stage 1 bed sore on the coccygeal region -Frequent change of position to prevent pressure -Apply zinc ointment Heart Healthy Diet DVT ppx Full Code Problem List: 1. Acute respiratory failure with hypoxia Pain Ratin Pain Location: n/a Pain Goal: Remain pain free Pain Plan: per pathway Tomorrow's Labs & Rationales: INR Vicky MATAMOROS,Amir 12/19/17 1043: Attending MD Review Statement Attending Statement Attending MD Statement: examined this patient, discuss w/resident/PA/PUMP SERVICER HELPER, agreed w/resident/PA/PUMP SERVICER HELPER, discussed with family, reviewed EMR data (avail), discussed with nursing Attending Assessment/Plan: Pt reports feeling sl better. Still some cough and requiring O2. Would prefer to be on regular diet, No BM yet CTA, no wheeze --Add bowel regimen --change diet to regular --f/u Pulm input --PT eval --rest of the plan as per resident's note
[2017-12-19 14:00] VITALS: BP 134/60
[2017-12-19 22:14] VITALS: BP 132/68
--- NOTE | 2017-12-20 06:49 | PN- Housestaff ---
Jorge Sandoval 12/20/17 0648: Subjective Follow-up For: Acute hypoxic respiratory failure Subjective: Patient seen and examined at bedside with her sons at bedside. No events on telemetry. No events per nursing. She is still on 1 L oxygen finding it difficult to wean off. She still has some phlegm with her cough. She has no new complaints otherwise. Review of Systems Constitutional: Reports: see HPI. Objective Last 24 Hrs of Vital Signs/I&O Vital Signs Date Time Temp Pulse Resp B/P B/P Pulse O2 O2 Flow FiO2 Mean Ox Delivery Rate 12/20 0812 92 Nasal 1.0L Cannula 12/20 0800 94 Nasal 1.0L Cannula 12/20 0728 98.1 74 18 144/76 96 Nasal 1.0L Cannula 12/19 2302 Nasal 1.0L Cannula 12/19 2214 98.2 70 20 132/68 94 Nasal Cannula 12/19 1621 94 Nasal 1.0L Cannula Intake & Output 12/20 1600 12/20 0800 12/20 0000 Intake Total 500 120 240 Output Total 800 100 Balance 500 -680 140 Intake, Oral 500 120 240 Number 1 Bowel Movements Output, Urine 800 100 Patient 145 lb Weight Physical Exam General Appearance: Alert, Cooperative, No Acute Distress HEENT: Atraumatic, EOMI Neck: Supple Cardiovascular: Normal S1, Normal S2 Lungs: Clear to Auscultation Abdomen: Normal Bowel Sounds, Soft, No Tenderness Current Medications: Current Medications Sig/Yanin Start time Last Medication Dose Route Stop Time Status Admin Acetaminophen 650 MG Q6P PRN 12/13 181 AC PO Acetaminophen 1,000 MG Q6P PRN 12/13 181 AC IV Albuterol Sulfate 3 ML EVERY 4 HRS/AWAKE 12/14 0800 AC 12/20 INH 0807 Albuterol Sulfate 2 PUF Q4P PRN 12/13 2014 AC INH Cefuroxime Sodium 250 MG Q12 12/18 2100 AC 12/20 PO 0833 Docusate Sodium 100 MG DAILY NEEDED PRN 12/19 1415 AC 12/19 PO 1840 Guaifenesin 10 ML AT BEDTIME PRN 12/17 0530 AC PO Patient Own 1 UNIT [id number] 12/17 2100 AC 12/17 Medication PO 2029 Patient Own 1 UNIT MoWeFr 12/15 1114 AC 12/20 Medication PO 0743 Patient Own 1 UNIT 1700 12/14 1700 AC 12/19 Medication PO 1833 Patient Own 1 UNIT 0700 12/14 1130 AC 12/20 Medication PO 0555 Patient Own 1 UNIT DAILY 12/14 1130 AC 12/20 Medication PO 0832 Patient Own 1 UNIT BID 12/14 1115 AC 12/20 Medication PO 0833 Prednisone 10 MG DAILY 12/18 0900 AC 12/20 PO 0833 Senna/Docusate Sodium 1 TAB BID PRN 12/19 1415 AC PO Warfarin Sodium 2 MG COUMADIN 1700 ONE 12/19 1700 DC PO 12/19 1701 Zinc Oxide 1 LONNIE BID 12/16 0900 AC 12/20 TOP 0834 Last 24 Hrs of Lab/Parish Results Last 24 Hrs of Labs/Mics: Laboratory Tests 12/20/17 0630: PT 33.0 H, INR 2.99 H Assessment/Plan Assessment: 87yo F with past medical history of hypertension, hyperlipidemia and atrial fibrillation on Coumadin who is presenting with chief complaint of shortness of breath. Patient was admitted to ICU and later transferred to telemetry. From examination it appears as if the patient's lungs are becoming less congested. However, she still remains unable to be completley independent of oxygen. As soon as she comes off the 1L, she desaturates to high 80's. It is likely that her body will take time to reach her baseline and that it will need to be conditioned with rehab as well. However, patient and family refuse rehab. Acute hypoxic respiratory failure due to pneumonia: possibly dt HCAP considering recent discharge (improving) -On 1 L of oxygen (sats drop to 88% when off) -Wean off oxygen keeping saturation above 92% -Continue Ceftin 250mg BID -Quick taper prednisone for bronchospasm (off now) -Continue TRC nebulization -Follow-up sputum cultures EKG changes: -Patient has incomplete RBBB and LAFB -Trops Neg -Echo: EF 65-70% -DC'd ekg monitor tech today Paroxysmal Afib with Supratherapeutic INR: -INR today is 2.99 -Hold Coumadin -Continue Nadolol History of hypertension and hyperlipidemia: -Continue nadolol and Norvasc -Continue Lipitor History of hypothyroidism: -Continue levothyroxine Bed sore: -Stage 1 bed sore on the coccygeal region -Frequent change of position to prevent pressure -Apply zinc ointment Heart Healthy Diet DVT ppx Full Code Problem List: 1. Acute respiratory failure with hypoxia Pain Ratin Pain Location: n/a Pain Goal: Remain pain free Pain Plan: Per pathway Tomorrow's Labs & Rationales: None Nirmala MATAMOROSEnrique 12/20/17 1214: Attending Review Statement Attending Statement Attending MD Statement: examined this patient, discuss w/resident/PA/TRANSMISSION SUPERVISOR, agreed w/resident/PA/TRANSMISSION SUPERVISOR, discussed with family, reviewed EMR data (avail), discussed with nursing, discussed with case mgmt, amended to note Attending Assessment/Plan: Patient seen and examined. Lying comfortably in bed not in any acute distress. No issues overnight reported by nursing staff. No events on telemetry monitoring. Denies chest pain or shortness of breath at rest. Does admit to shortness of breath with exertion. She is afebrile. She is hemodynamically stable. On examination she has adequate entry bilaterally with no added sounds. She has no peripheral edema. She was seen by the physical therapy service. Recommendations are for discharge to long term facility for short-term replication. Patient and family however very opposed to this. It would like the patient to be discharged home. Family members have made arrangements for care at home. We will continue on oral antibiotic therapy to complete 10 days of treatment as recommended by the pulmonology service for her pneumonia. We will continue to attempt to wean off oxygen. If unable to do so she will be discharged on oxygen supplementation. She is to follow-up with the pulmonology service as an outpatient in 1 week. Nursing staff encouraged to mobilize patient again later on today. If she remains afebrile hemodynamically stable tomorrow she may be discharged home in the company of family. We will follow-up with the patient and family again tomorrow regarding discharge to long term facility.
[2017-12-20 07:28] VITALS: BP 144/76
--- NOTE | 2017-12-20 09:10 | PN- Pulmonary ---
Subjective HPI/Critical Care Issues: The patient had an episode of oxygen desaturation yesterday on room air. She also felt short of breath while off oxygen, noting she was unaware that she was not receiving supplemental oxygen when her symptoms occurred. She is ambulating to the bathroom without significant difficulty. She is eating better. There were no overnight events reported. Objective Current Medications: Current Medications Sig/Yanni Start time Last Medication Dose Route Stop Time Status Admin Acetaminophen 650 MG Q6P PRN 12/13 181 AC PO Acetaminophen 1,000 MG Q6P PRN 12/13 181 AC IV Albuterol Sulfate 3 ML EVERY 4 HRS/AWAKE 12/14 08 AC 12/20 INH 0807 Albuterol Sulfate 2 PUF Q4P PRN 12/13 2014 AC INH Azithromycin 500 MG DAILY 12/17 09 DC 12/19 Sodium Chloride 250 ML IV 12/19 09 0858 Cefuroxime Sodium 250 MG Q12 12/18 2100 AC 12/20 PO 0833 Docusate Sodium 100 MG DAILY NEEDED PRN 12/19 1415 AC 12/19 PO 1840 Guaifenesin 10 ML AT BEDTIME PRN 12/17 0530 AC PO Patient Own 1 UNIT [id number] 12/17 2100 AC 12/17 Medication PO 2029 Patient Own 1 UNIT MoWeFr 12/15 1114 AC 12/20 Medication PO 0743 Patient Own 1 UNIT 1700 12/14 1700 AC 12/19 Medication PO 1833 Patient Own 1 UNIT 0700 12/14 1130 AC 12/20 Medication PO 0555 Patient Own 1 UNIT DAILY 12/14 1130 AC 12/20 Medication PO 0832 Patient Own 1 UNIT BID 12/14 1115 AC 12/20 Medication PO 0833 Prednisone 10 MG DAILY 12/18 0900 AC 12/20 PO 0833 Senna/Docusate Sodium 1 TAB BID PRN 12/19 1415 AC PO Warfarin Sodium 2 MG COUMADIN 1700 ONE 12/19 1700 DC PO 12/19 1701 Zinc Oxide 1 LONNIE BID 12/16 09 AC 12/20 TOP 0834 Vital Signs & I&O Last 24 Hrs of Vitals and I&O: Vital Signs Date Time Temp Pulse Resp B/P B/P Pulse O2 O2 Flow FiO2 Mean Ox Delivery Rate 12/20 0812 92 Nasal 1.0L Cannula 12/20 0728 98.1 74 18 144/76 96 Nasal 1.0L Cannula 12/19 2302 Nasal 1.0L Cannula 12/19 2214 98.2 70 20 132/68 94 Nasal Cannula 12/19 1621 94 Nasal 1.0L Cannula 12/19 1400 98.1 69 20 134/60 93 12/19 1211 94 Nasal 1.0L Cannula Intake & Output 12/20 1600 12/20 0800 12/20 0000 Intake Total 120 240 Output Total 800 100 Balance -680 140 Intake, Oral 120 240 Number 1 Bowel Movements Output, Urine 800 100 Patient 145 lb Weight Physical Exam General Appearance: comfortable, alert, awake Head: atraumatic, normal appearance Neck: normal inspection, supple Respiratory: bilateral ronchi, scattered wheezes Cardiovascular: S1 and S2+ Gastrointestinal: normal bowel sounds, soft, non-tender Extremities: normal inspection, no edema Neurologic/Psych: no motor/sensory deficits, awake, alert Results Last 24 Hrs of Lab Results: Laboratory Tests 12/20/17 0630: PT 33.0 H, INR 2.99 H Impression/Plan Impression/Plan Impression/Plan: 1. Acute hypoxemic respiratory failure secondary to pneumonia, and tracheobronchitis. 2. Acute bronchospasm, on steroids. The patient does not fit the definition of COPD/emphysema. 3. Anemia, likely dilutional, no evidence of bleeding. 4. Atrial fibrillation, on Coumadin, INR pending. 5. Anxiety. 6. History of hypertension -on nadolol and Norvasc. 7. GERD. 8. History of valvular heart disease. 9. Hypothyroidism, on levothyroxine. 10. Hyperlipidemia, on Lipitor. Recommendations: * Monitor off isolation. * Taper oxygen down for saturations greater than 92%. * Prednisone taper down to off. * Monitor daily INRs. Dose coumadin accordingly. * Complete antibiotic course, total of 7-10 days. * Physical therapy evaluation for discharge planning. * Check ambulatory oxygen saturation, determine need for home supplemental oxygen. * Continue nebs/total respiratory care. * Continue all current medications. * Telemetry monitoring per cardiology. * I updated the patient's family at the bedside. * Continue all supportive care.
[2017-12-20] MEDS ORDERED: CEFUROXIME250 M1 PO ×2 (13:24→15:44)
[2017-12-20 22:52] VITALS: BP 128/60
[2017-12-21 07:34] VITALS: BP 124/56
--- NOTE | 2017-12-21 09:15 | PN- Pulmonary ---
Subjective HPI/Critical Care Issues: The patient is awake and alert. She continues to have a congested cough. She reports her sputum is broadcast correspondent in color than it had been previously. She is disappointed about the cough and is feeling somewhat pessimistic today about her prognosis. She does not feel as strong as she would like. She is currently on 1 L of supplemental oxygen with saturations in the mid to low 90s. She has been ambulating with physical therapy. Objective Current Medications: Current Medications Sig/Yanni Start time Last Medication Dose Route Stop Time Status Admin Acetaminophen 650 MG Q6P PRN 12/13 1814 AC PO Acetaminophen 1,000 MG Q6P PRN 12/13 181 AC IV Albuterol Sulfate 3 ML EVERY 4 HRS/AWAKE 12/14 08 AC 12/21 INH 0907 Albuterol Sulfate 2 PUF Q4P PRN 12/13 2014 AC INH Cefuroxime Sodium 250 MG Q12 12/18 2100 AC 12/20 PO 2035 Docusate Sodium 100 MG DAILY NEEDED PRN 12/19 1415 AC 12/19 PO 1840 Guaifenesin 10 ML AT BEDTIME PRN 12/17 0530 AC PO Patient Own 1 UNIT [id number] 12/17 2100 AC 12/20 Medication PO 2038 Patient Own 1 UNIT MoWeFr 12/15 1114 AC 12/20 Medication PO 0743 Patient Own 1 UNIT 1700 12/14 1700 AC 12/19 Medication PO 1833 Patient Own 1 UNIT 0700 12/14 1130 AC 12/21 Medication PO 0644 Patient Own 1 UNIT DAILY 12/14 1130 AC 12/20 Medication PO 0832 Patient Own 1 UNIT BID 12/14 1115 AC 12/20 Medication PO 2033 Prednisone 10 MG DAILY 12/18 0900 DC 12/20 PO 0833 Senna/Docusate Sodium 1 TAB BID PRN 12/19 1415 AC PO Zinc Oxide 1 LONNIE BID 12/16 09 AC 12/20 TOP 2037 Vital Signs & I&O Last 24 Hrs of Vitals and I&O: Vital Signs Date Time Temp Pulse Resp B/P B/P Pulse O2 O2 Flow FiO2 Mean Ox Delivery Rate 12/21 0734 98.3 59 18 124/56 94 Nasal 1.0L Cannula 12/216 Nasal 1.0L Cannula 12/21 2251 97.6 68 18 128/60 92 12/20 2212 94 Nasal 1.0L Cannula 12/20 2012 94 Nasal 1.0L Cannula 12/21 1599 94 Nasal 1.0L Cannula Intake & Output 12/21 1600 12/21 0800 12/21 0000 Intake Total 240 240 Output Total Balance 240 240 Intake, Oral 240 240 Patient 142 lb Weight Weight Bed scale Measurement Method Physical Exam General Appearance: comfortable, alert, awake Head: atraumatic, normal appearance Neck: normal inspection, supple Respiratory: bilateral ronchi, scattered wheezes Cardiovascular: S1 and S2+ Gastrointestinal: normal bowel sounds, soft, non-tender Extremities: normal inspection, no edema Neurologic/Psych: no motor/sensory deficits, awake, alert Results Last 24 Hrs of Lab Results: Laboratory Tests 12/21/17 0628: PT 30.0 H, INR 2.72 H Impression/Plan Impression/Plan Impression/Plan: 1. Acute hypoxemic respiratory failure secondary to pneumonia, and tracheobronchitis. 2. Acute bronchospasm, on steroids. The patient does not fit the definition of COPD/emphysema. 3. Anemia, likely dilutional, no evidence of bleeding. 4. Atrial fibrillation, on Coumadin, INR pending. 5. Anxiety. 6. History of hypertension -on nadolol and Norvasc. 7. GERD. 8. History of valvular heart disease. 9. Hypothyroidism, on levothyroxine. 10. Hyperlipidemia. Recommendations: * Prednisone taper to be completed. * Monitor daily INRs. Dose coumadin accordingly. * Complete antibiotic course, total of 7-10 days. * Physical therapy for ambulation. * Check ambulatory oxygen saturation, determine need for home supplemental oxygen. * Continue nebs/total respiratory care. * Continue all current medications. * Telemetry monitoring per cardiology. * I updated the patient's family at the bedside. * Continue all supportive care. * Continue with discharge planning. The patient does not want to go to short- term rehab and prefers to go home with services.
--- NOTE | 2017-12-21 10:13 | PN- Housestaff ---
Jorge Sandoval 12/21/17 1013: Subjective Follow-up For: Acute hypoxic resp failure A fib Subjective: Not events overnight per nursing, patient is no longer on telemetry. Patient reports her cough to be slightly worse last night. It is still productive and requires 1L oxygen to keep her saturations up. Nursing has been mobilizing patient as much as she can tolerate. Review of Systems Constitutional: Reports: see HPI. Objective Last 24 Hrs of Vital Signs/I&O Vital Signs Date Time Temp Pulse Resp B/P B/P Pulse O2 O2 Flow FiO2 Mean Ox Delivery Rate 12/21 1439 97.6 67 18 122/50 94 Nasal 1.0L Cannula 12/21 1012 93 Nasal 1.0L Cannula 12/21 0800 Nasal 2.0L Cannula 12/21 0734 98.3 59 18 124/56 94 Nasal 1.0L Cannula 12/21 0216 Nasal 1.0L Cannula 12/20 2252 97.6 68 18 128/60 92 12/20 2212 94 Nasal 1.0L Cannula 12/20 2013 94 Nasal 1.0L Cannula 12/20 1600 94 Nasal 1.0L Cannula Intake & Output 12/21 1600 12/21 0800 12/21 0000 Intake Total 240 240 Output Total Balance 240 240 Intake, Oral 240 240 Patient 142 lb Weight Weight Bed scale Measurement Method Physical Exam General Appearance: Alert, Cooperative, No Acute Distress Skin Temp/Moisture Exam: Warm/Dry HEENT: Atraumatic, EOMI Cardiovascular: Normal S1, Normal S2 Lungs: Clear to Auscultation, Normal Air Movement Abdomen: Normal Bowel Sounds, Soft, No Tenderness Current Medications: Current Medications Sig/Yanni Start time Last Medication Dose Route Stop Time Status Admin Acetaminophen 650 MG Q6P PRN 12/13 1814 AC PO Acetaminophen 1,000 MG Q6P PRN 12/13 1814 AC IV Albuterol Sulfate 3 ML EVERY 4 HRS/AWAKE 12/14 08 AC 12/21 INH 1201 Albuterol Sulfate 2 PUF Q4P PRN 12/13 2014 AC INH Cefuroxime Sodium 250 MG Q12 12/18 2099 AC 12/21 PO 1005 Docusate Sodium 100 MG DAILY NEEDED PRN 12/19 1415 AC 12/19 PO 1840 Guaifenesin 10 ML AT BEDTIME PRN 12/17 0530 AC PO Patient Own 1 UNIT [email or web address] 12/17 2100 AC 12/20 Medication PO 2038 Patient Own 1 UNIT MoWeFr 12/15 1114 AC 12/20 Medication PO 0743 Patient Own 1 UNIT 1700 12/14 1700 AC 12/19 Medication PO 1833 Patient Own 1 UNIT 0700 12/14 1130 AC 12/21 Medication PO 0644 Patient Own 1 UNIT DAILY 12/14 1130 AC 12/21 Medication PO 1014 Patient Own 1 UNIT BID 12/14 1115 AC 12/21 Medication PO 1014 Prednisone 10 MG DAILY 12/18 0900 DC 12/20 PO 0833 Senna/Docusate Sodium 1 TAB BID PRN 12/19 1415 AC PO Warfarin Sodium 2 MG COUMADIN 1700 ONE 12/21 1700 UNVr PO 12/21 1701 Zinc Oxide 1 LONNIE BID 12/16 0900 AC 12/21 TOP 1015 Last 24 Hrs of Lab/Parish Results Last 24 Hrs of Labs/Mics: Laboratory Tests 12/21/17 0628: PT 30.0 H, INR 2.72 H Assessment/Plan Assessment: 87yo F with past medical history of hypertension, hyperlipidemia and atrial fibrillation on Coumadin who is presenting with chief complaint of shortness of breath. Patient was admitted to ICU and later transferred to telemetry. From examination it appears as if the patient's lungs are becoming less congested. However, she still remains unable to be completley independent of oxygen. As soon as she comes off the 1L, she desaturates to high 80's. It is likely that her body will take time to reach her baseline and that it will need to be conditioned with rehab as well. However, patient and family refuse rehab. She is more willing to use the Guafenesin today to help her congestion. Can consider stopping her antibiotics now, as it has been 8 days. Acute hypoxic respiratory failure due to pneumonia: possibly dt HCAP considering recent discharge (improving) -On 1 L of oxygen (sats drop to 88% when off) -Wean off oxygen keeping saturation above 92% -Continue Ceftin 250mg BID -Quick taper prednisone for bronchospasm (off now) -Continue TRC nebulization -Suputum cultures weren't impressive EKG changes: -Patient has incomplete RBBB and LAFB -Trops Neg -Echo: EF 65-70% -DC'd microcomputer technician today Paroxysmal Afib with Supratherapeutic INR: -INR today is 2.72 -Coumadin given -Continue Nadolol History of hypertension and hyperlipidemia: -Continue nadolol and Norvasc -Continue Lipitor History of hypothyroidism: -Continue levothyroxine Bed sore: -Stage 1 bed sore on the coccygeal region -Frequent change of position to prevent pressure -Apply zinc ointment Heart Healthy Diet DVT ppx Full Code Problem List: 1. Acute respiratory failure with hypoxia Pain Ratin Pain Location: n/a Pain Goal: Remain pain free Pain Plan: pathway Tomorrow's Labs & Rationales: INR Nirmala MATAMOROS,Enrique 12/21/17 1058: Attending MD Review Statement Attending Statement Attending MD Statement: examined this patient, discuss w/resident/PA/STEM ROLLER OR CRUSHER OPERATOR, agreed w/resident/PA/STEM ROLLER OR CRUSHER OPERATOR, discussed with family, reviewed EMR data (avail), discussed with nursing, discussed with case mgmt, amended to note Attending Assessment/Plan: Patient seen and examined. No events overnight reported by nursing staff. Patient continues to report productive cough. She reports feeling lethargic and is very reluctant to be discharged home. Physical therapy service did recommend discharge to [facility] facility for short-term rehabilitation however patient and family remained adamant on going home rather than to a rehab facility. She continues to maintain saturation on 1 L of oxygen. She also continues to desaturate when taken of oxygen. On examination she has mild rhonchorous breath sounds bilaterally. No JVD. No peripheral edema. We will continue patient on her oral antibiotic to complete her course. We will continue to attempt to wean patient off oxygen supplementation. Nursing staff encouraged to mobilize patient as tolerated. she reports that the cough is poor of an issue at night as it prevents her from sleeping. She is reluctant to try Robitussin however we have encouraged her to use it at nighttime help obtain better sleep. She is agreeable with this plan. She may be discharged home once cleared by her brief writer.
[2017-12-21 14:39] VITALS: BP 122/50
[2017-12-21 18:00] VITALS: BP 146/90
[2017-12-21 21:29] VITALS: BP 118/56
[2017-12-22 06:42] VITALS: BP 128/62
--- NOTE | 2017-12-22 07:21 | PN- Housestaff ---
Jorge Sandoval 12/22/17 0721: Subjective Follow-up For: Acute Hypoxic Respiratory Failure Subjective: Patient feels like Robitussin helped last night. Says she slept well, cough has been improving. Still some sputum production. Still desaturating to high 80's after being taken off 1L oxygen. She had a 5 second episode of lightheadedness after coming off the oxygen so a CXR was ordered. Review of Systems Constitutional: Reports: see HPI. Objective Last 24 Hrs of Vital Signs/I&O Vital Signs Date Time Temp Pulse Resp B/P B/P Pulse O2 O2 Flow FiO2 Mean Ox Delivery Rate 12/22 0800 22 94 Nasal 1.0L Cannula 12/22 0642 98.2 65 18 128/62 81 Nasal Cannula 12/21 2139 Nasal 1.0L Cannula 12/21 2129 97.6 67 18 118/56 92 Nasal Cannula 12/21 1800 97.8 74 20 146/90 96 Nasal Cannula 12/21 1600 93 Nasal 1.0L Cannula 12/21 1439 97.6 67 18 122/50 94 Nasal 1.0L Cannula 12/21 1012 93 Nasal 1.0L Cannula Intake & Output 12/22 1600 12/22 0800 12/22 0000 Intake Total 100 150 Output Total 275 Balance 100 -125 Intake, Oral 100 150 Output, Urine 275 Patient 140 lb Weight Weight Bed scale Measurement Method Physical Exam General Appearance: Alert, Cooperative, No Acute Distress HEENT: Atraumatic, EOMI Neck: Supple Cardiovascular: Normal S1, Normal S2 Lungs: Normal Air Movement, R sided basilar crackles Abdomen: Normal Bowel Sounds, Soft, No Tenderness Current Medications: Current Medications Sig/Yanni Start time Last Medication Dose Route Stop Time Status Admin Acetaminophen 650 MG Q6P PRN 12/13 1814 AC PO Acetaminophen 1,000 MG Q6P PRN 12/13 1814 AC IV Albuterol Sulfate 3 ML EVERY 4 HRS/AWAKE 12/14 08 AC 12/21 INH 2055 Albuterol Sulfate 2 PUF Q4P PRN 12/13 2014 AC INH Cefuroxime Sodium 250 MG Q12 12/18 2100 AC 12/21 PO 2006 Docusate Sodium 100 MG DAILY NEEDED PRN 12/19 1415 AC 12/19 PO 184 Guaifenesin 10 ML AT BEDTIME PRN 12/17 0530 AC 12/21 PO 2126 Patient Own 1 UNIT MoWeFr@2100 12/17 2100 AC 12/20 Medication PO 2038 Patient Own 1 UNIT MoWeFr 12/15 1114 AC 12/22 Medication PO 0657 Patient Own 1 UNIT 1700 12/14 1700 AC 12/21 Medication PO 1817 Patient Own 1 UNIT 0700 12/14 1130 AC 12/22 Medication PO 0551 Patient Own 1 UNIT DAILY 12/14 1130 AC 12/21 Medication PO 1014 Patient Own 1 UNIT BID 12/14 1115 AC 12/21 Medication PO 2008 Senna/Docusate Sodium 1 TAB BID PRN 12/19 1415 AC PO Warfarin Sodium 2 MG COUMADIN 1700 ONE 12/21 1700 DC PO 12/21 1701 Zinc Oxide 1 LONNIE BID 12/16 0900 AC 12/21 [facility] 2010 Last 24 Hrs of Lab/Parish Results Last 24 Hrs of Labs/Mics: Laboratory Tests 12/22/17 0605: PT 29.6 H, INR 2.69 H Assessment/Plan Assessment: Assessment: 87yo F with past medical history of hypertension, hyperlipidemia and atrial fibrillation on Coumadin who is presenting with chief complaint of shortness of breath. Patient was admitted to ICU and later transferred to telemetry. Clinically she appears better. However, she still remains unable to be completley independent of oxygen. As soon as she comes off the 1L, she desaturates to high 80's. It is likely that her body will take time to reach her baseline and that it will need to be conditioned with rehab as well. However, patient and family refuse rehab. Guafenesin helped her sleep last night, and she can continue taking it at home. Antibiotics stopped today. Stable to be discharged. Acute hypoxic respiratory failure due to pneumonia: possibly dt HCAP considering recent discharge (improving) -On 1 L of oxygen (sats drop to 88% when off) -Weaning off, will send home on oxygen for now -Stop abx (9th day) -Quick taper prednisone for bronchospasm (off now) -Continue TRC nebulization -Suputum cultures weren't impressive EKG changes: -Patient has incomplete RBBB and LAFB -Trops Neg -Echo: EF 65-70% Paroxysmal Afib with Supratherapeutic INR: -INR today is 2.69 -Family wanted to hold coumadin -Continue Nadolol History of hypertension and hyperlipidemia: -Continue Nadolol and Norvasc -Continue Lipitor History of hypothyroidism: -Continue levothyroxine Bed sore: -Stage 1 bed sore on the coccygeal region -Frequent change of position to prevent pressure -Apply zinc ointment Heart Healthy Diet DVT ppx Full Code Problem List: 1. Acute respiratory failure with hypoxia Pain Ratin Pain Location: n/a Pain Goal: Remain pain free Pain Plan: per pathway Tomorrow's Labs & Rationales: none Enrique Silvestre MD 12/22/17 1451: Attending MD Review Statement Attending Statement Attending MD Statement: examined this patient, discuss w/resident/PA/CLINICAL INFORMATION SYSTEMS DIRECTOR, agreed w/resident/PA/CLINICAL INFORMATION SYSTEMS DIRECTOR, discussed with family, reviewed EMR data (avail), discussed with nursing, discussed with case mgmt, amended to note Attending Assessment/Plan: Patient seen and examined. Resting comfortably and not in acute distress. Reported mild period of dizziness this morning while eating breakfast. She felt that this occurred because she was eating quickly. Symptoms have since resolved. Denies chest pain. No shortness of breath or palpitations. She reports having a better sleep last night. On examination she has adequate entry bilaterally with no added sounds. Chest x-ray done today shows no acute pathology. Case was discussed with the pulmonology service. She is completed 9 days of antibiotic therapy. This will be discontinued. She is medically stable to be discharged home today in the company of her family. She will follow-up with the pulmonology service is an outpatient. She continues to require oxygen supplementation I will follow-up with the pulmonology service for weaning off oxygen as an outpatient.
--- NOTE | 2017-12-22 07:37 | PN- Pulmonary ---
Subjective HPI/Critical Care Issues: The patient is awake and alert. Her oxygen saturation is noted to be 81% on 1 L nasal cannula however this was confirmed to be an error and she is 94% on 1 L nasal cannula. She drops into the high 80s on room air appear the patient complained of having a "spell" noting she felt not her usual self for several seconds. She believes this had to do with anxiety. Her cough has significantly improved overall. Objective Current Medications: Current Medications Sig/Yanni Start time Last Medication Dose Route Stop Time Status Admin Acetaminophen 650 MG Q6P PRN 12/135 AC PO Acetaminophen 1,000 MG Q6P PRN 12/13 1814 AC IV Albuterol Sulfate 3 ML EVERY 4 HRS/AWAKE 12/14 08 AC 12/21 INH 6 Albuterol Sulfate 2 PUF Q4P PRN 12/13 2014 AC INH Cefuroxime Sodium 250 MG Q12 12/18 2100 AC 12/21 PO 2006 Docusate Sodium 100 MG DAILY NEEDED PRN 12/19 1415 AC 12/19 PO 1840 Guaifenesin 10 ML AT BEDTIME PRN 12/17 0530 AC 12/21 PO 2127 Patient Own 1 UNIT MoWeFr@2100 12/17 2100 AC 12/20 Medication PO 2038 Patient Own 1 UNIT MoWeFr 12/15 1114 AC 12/22 Medication PO 0657 Patient Own 1 UNIT 1700 12/14 1700 AC 12/21 Medication PO 1817 Patient Own 1 UNIT 0700 12/14 1130 AC 12/22 Medication PO 0551 Patient Own 1 UNIT DAILY 12/14 1130 AC 12/21 Medication PO 1014 Patient Own 1 UNIT BID 12/14 1115 AC 12/21 Medication PO 2008 Senna/Docusate Sodium 1 TAB BID PRN 12/19 1415 AC PO Warfarin Sodium 2 MG COUMADIN 1700 ONE 12/21 1700 DC PO 12/21 1701 Zinc Oxide 1 LONNIE BID 12/16 0900 AC 12/21 [facility] 2010 Vital Signs & I&O Last 24 Hrs of Vitals and I&O: Vital Signs Date Time Temp Pulse Resp B/P B/P Pulse O2 O2 Flow FiO2 Mean Ox Delivery Rate 12/22 0642 98.2 65 18 128/62 81 Nasal Cannula 12/21 2138 Nasal 1.0L Cannula 12/21 2128 97.6 67 18 118/56 92 Nasal Cannula 12/21 1800 97.8 74 20 146/90 96 Nasal Cannula 12/21 1600 93 Nasal 1.0L Cannula 12/21 1439 97.6 67 18 122/50 94 Nasal 1.0L Cannula 12/21 1012 93 Nasal 1.0L Cannula 12/21 0800 Nasal 1.0L Cannula 12/21 0734 98.3 59 18 124/56 94 Nasal 1.0L Cannula Intake & Output 12/22 0800 12/22 0000 12/21 1600 Intake Total 100 150 510 Output Total 275 650 Balance 100 -125 -140 Intake, IV 10 Intake, Oral 100 150 500 Output, Urine 275 650 Patient 140 lb Weight Weight Bed scale Measurement Method Physical Exam General Appearance: comfortable, alert, awake Head: atraumatic, normal appearance Neck: normal inspection, supple Respiratory: bilateral ronchi, scattered wheezes Cardiovascular: S1 and S2+ Gastrointestinal: normal bowel sounds, soft, non-tender Extremities: normal inspection, no edema Results Last 24 Hrs of Lab Results: Laboratory Tests 12/22/17 0605: PT Pending, INR Pending Impression/Plan Impression/Plan Impression/Plan: 1. Acute hypoxemic respiratory failure secondary to pneumonia, and tracheobronchitis. 2. Acute bronchospasm, improved. The patient does not fit the definition of COPD/emphysema. 3. Anemia, likely dilutional, no evidence of bleeding. 4. Atrial fibrillation, on Coumadin, INR pending. 5. Anxiety. 6. History of hypertension -on nadolol and Norvasc. 7. GERD. 8. History of valvular heart disease. 9. Hypothyroidism, on levothyroxine. 10. Hyperlipidemia. Recommendations: * Check a PA and lateral chest x-ray today. * Complete antibiotic course, total of 7-10 days. * Ambulate, increase activity. * Continue nebs/total respiratory care. * I updated the patient's family at the bedside. * Continue all supportive care. * Continue with discharge planning. The patient will require home oxygen therapy. The patient does not want to go to short-term rehab and prefers to go home with services.
[2017-12-22 08:36] LABS: PT 29.6 SEC (9.4-12.5)
--- NOTE | 2017-12-22 10:39 | RADIOLOGY REPORT ---
EXAMINATION: XR CHEST CLINICAL INFORMATION: Infectious versus PED saturation. COMPARISON: Prior examinations most recent chest x-ray 12/16/2017 TECHNIQUE: 2 views of the chest were obtained. FINDINGS: No significant abnormality is noted involving the heart, lungs, mediastinum, bony thorax or soft tissues. IMPRESSION: Unremarkable examination.
[2017-12-22] MEDS ORDERED: ALBUTEROL2.5 MG/3 M INH/SOL (15:04)
== END 2017-12-22 15:13 | disposition home health service (06) | DRG 193 ==
LOC: ERH 16:07 → 1NO 17:27 → ERHI 17:27 → CRI 17:27 → ENRESERV 19:03 → ENTRNSPT 20:17 → EDTRNSPTSTS 20:27 → EDTRNSPT 20:27 → CRI 20:35 → CMPTRNSPT 20:55 → CRI 12-14 08:31 → 1NO 12-16 14:42 → ENPENDDIS 12-22 12:01 → ENTRNSPT 12-22 14:46 → EDTRNSPT 12-22 15:05 → EDTRNSPTSTS 12-22 15:05 → 1NO 12-22 15:13 → CMPTRNSPT 12-22 15:15
PROVIDERS: Hospitalist; Internal Medicine; Physician Assistant; Preventive Medicine Public Health & General Preventive Medicine; Student in an Organized Health Care Education/Training Program
PROC: 5A09357 Assistance with Respiratory Ventilation, Less than 24 Consecutive Hours, Continuous Positive Airway Pressure (ICD-10-PCS; principal; 2017-12-13)
DX: J18.9 Pneumonia, unspecified organism (principal); J96.01 Acute respiratory failure with hypoxia; E87.1 Hypo-osmolality and hyponatremia; I45.2 Bifascicular block; I48.0 Paroxysmal atrial fibrillation; L89.151 Pressure ulcer of sacral region, stage 1; I48.2 Chronic atrial fibrillation; D64.9 Anemia, unspecified; E03.9 Hypothyroidism, unspecified; I25.2 Old myocardial infarction; I16.0 Hypertensive urgency; I10 Essential (primary) hypertension; D50.9 Iron deficiency anemia, unspecified; K21.9 Gastro-esophageal reflux disease without esophagitis; M48.00 Spinal stenosis, site unspecified; J98.01 Acute bronchospasm; E78.5 Hyperlipidemia, unspecified; F41.9 Anxiety disorder, unspecified; Z79.01 Long term (current) use of anticoagulants
CPT/HCPCS: 1NP; 84133; 84300; CCU; 36415; 71045; 71046; 81001; 82436; 82570; 87040; 87070; 87071; 87086; 87389; 87449; 87450; 93005; 93010; 93306; 93970; 94644; 96374; 96375; 97110-GO; 97116-GO; 97161-GP; 97530-GO; 99291; J0131; J0456; J0696; J0713; J1940; J2930; J3370; J3490; J7040; J7512

== ENCOUNTER 2018-01-03 00:17 | Emergency (ER) | payer OTHER ==
[~2018-01-03 00:17] MED LIST changes: +ALBUTEROL2.5 MG/3 M INH/SOL; +CEFTIN250 MG/51 PO; +CEFUROXIME250 M1 PO
--- NOTE | 2018-01-03 00:19 | ED DYSPNEA/ASTHMA COMPLAINT ---
History of Present Illness General Chief Complaint: Dyspnea (COPD, CHF, Other) Stated Complaint: DIFF BREATHING Source: patient, family Exam Limitations: no limitations Vital Signs & Intake/Output Vital Signs & Intake/Output Vital Signs Date Time Temp Pulse Resp B/P B/P Pulse O2 O2 Flow FiO2 Mean Ox Delivery Rate 01/03 0807 63 15 143/63 99 Nasal 1.0L Cannula 01/03 0623 97.2 68 18 133/65 100 Nasal 1.0L Cannula 01/03 0234 100 Nasal 1.0L Cannula 01/03 0108 97 Room Air 01/03 0045 68 20 148/64 100 Nasal Cannula Triage Nurses Notes Reviewed? yes Onset: Gradual Duration: hour(s): Timing: recent history Severity: mild Activities at Onset: none Prior Episodes/Possible Cause: occasional episodes Associated Symptoms: cough HPI: 87 yo woman with copd on 1l nc, presents with an episode "I couldn't cough this morning." Her son notes, "her oxygen level was 99. She didn't seem to have a problem breathing... She just said that she couldn't cough... The last time she ended up in the ICU and so I didn't want to take any chances." She reports that she is now feeling better. She has no dyspnea, cough, phlegm, fever, chest pain. She notes that she has a decubiti ulcer on her coccyx, which causes her discomfort when she sleeps. "I have to sleep on my side and it really is uncomfortable." She notes that her of 64 years appximately 1 month ago. She shares that she has been grieving his . She felt anxious tonight. She is otherwise well. (Delroy MATAMOROS,Meño Monsivais) Allergies Uncoded Allergies: BERRIES (Intermediate, INTERACTS W/ COUMADIN. 01/03/18) Reconcile Medications Albuterol Sulfate (Proair Hfa) 90 MCG HFA.AER.AD 2 PUF INH Q6 PRN BRONCHITIS Albuterol Sulfate 2.5 MG/3 ML (0.083 %) VIAL.NEB 1 Vial INH/ETHAN Q6-PRN PRN pneumonia Amlodipine (Norvasc) 2.5 MG TABLET 1 TAB PO QPM BP (Reported) Amlodipine Besylate (Norvasc) 5 MG TABLET 1 TAB PO QAM HTN (Reported) Atorvastatin Calcium (Lipitor) 10 MG TABLET 1 TAB PO DAILY HLD (Reported) Clotrimazole (Lotrimin AF) 1 % CREAM..G. 1 LONNIE TOP BID groin fungal infection apply to affected area(s)[id number] Levothyroxine Sodium (Synthroid) 50 MCG TABLET 1 TAB PO DAILY HYPOTHYROIDISM (Reported) Nadolol (Corgard) 20 MG TABLET 20 MG PO BID HTN (Reported) Rabeprazole Sodium (Aciphex) 20 MG TABLET.DR 1 TAB PO Wednesday GERD (Reported) Warfarin Sodium (Coumadin) 2 MG TABLET 1 TAB PO DAILY AFIB (Reported) Please hold for today and resume once INR is repeated. Dosed per INR (Curt MATAMOROS,Rafael Wei) Past History Travel History Traveled to [place] past 21 day No Medical History Any Pertinent Medical History? 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 No (Delroy MATAMOROS,Meño Monsivais) Review of Systems Review of Systems Constitutional: Reports: no symptoms. EENTM: Reports: no symptoms. Respiratory: Reports: no symptoms. Cardiovascular: Reports: no symptoms. GI: Reports: no symptoms. Genitourinary: Reports: no symptoms. Musculoskeletal: Reports: no symptoms. Skin: Reports: no symptoms. Neurological/Psychological: Reports: no symptoms. Hematologic/Endocrine: Reports: no symptoms. Immunologic/Allergic: Reports: no symptoms. All Other Systems: Reviewed and Negative (Delroy MATAMOROS,Meño Monsivais) Physical Exam Physical Exam General Appearance: well developed/nourished, no apparent distress Head: atraumatic, normal appearance Eyes: Bilateral: normal appearance. Ears, Nose, Throat: normal pharynx, normal ENT inspection Neck: normal inspection, supple, full range of motion Respiratory: normal breath sounds, chest non-tender, no respiratory distress, quiet respiration, lungs clear Cardiovascular: regular rate/rhythm Gastrointestinal: normal bowel sounds, soft, non-tender, no organomegaly Extremities: normal inspection, normal capillary refill, normal range of motion, no edema Neurologic/Psych: no motor/sensory deficits, awake, alert, oriented x 3 Skin: intact, normal color, warm/dry, STAGE 1 COCCYX DECUBITI, NON INFECTED Core Measures ACS in differential dx? No CVA/TIA Diagnosis No Sepsis Present: No Sepsis Focused Exam Completed? No (Delroy MATAMOROS,Meño Monsivais) Progress Differential Diagnosis: copd, anxiety, bronchitis Plan of Care: Orders Procedure Date/time Status Heart Healthy Diet 01/03 B Active PT Evaluate & Treat 01/03 339 Active CASE MANAGEMENT CONSULT 01/03 339 Active URINALYSIS 01/03 022 Complete Add-on Test (ER Only) 01/03 0209 Active PARTIAL THROMBOPLASTIN TIME 01/03 0103 Complete PROTHROMBIN TIME 01/03 0103 Complete TROPONIN LEVEL 01/03 002 Complete LIPASE 01/03 0020 Complete LACTIC ACID 01/03 0020 Complete HEPATIC FUNCTION PANEL 01/03 0020 Complete D-DIMER 01/03 0020 Complete CBC WITHOUT DIFFERENTIAL 01/03 0020 Complete BASIC METABOLIC PANEL 01/03 0020 Complete AMYLASE 01/03 0020 Complete EKG 01/03 0020 Active Current Medications Sig/Yanni Start time Last Medication Dose Stop Time Status Admin Amlodipine Besylate 2.5 MG QPM 01/03 2100 UNVr (Norvasc) Amlodipine Besylate 5 MG QAM 01/03 900 UNVr (Norvasc) Atorvastatin Calcium 10 MG DAILY 01/03 900 UNVr (Lipitor) Clotrimazole 1 LONNIE BID 01/03 900 UNVr (Lotrimin) Levothyroxine Sodium 0.05 MG DAILY 01/03 900 UNVr (Synthroid) Nadolol 20 MG BID 01/03 900 UNVr (Corgard) Warfarin Sodium 2 MG DAILY 01/03 900 UNVr (Coumadin) Omeprazole 20 MG DAILY AC 01/03 700 UNVr (Prilosec) Albuterol Sulfate 3 ML Q6-PRN PRN 01/03 0515 AC (Proventil) Laboratory Tests 01/03/18 0320: Lactic Acid Cancelled 01/03/18 0311: Urine Color YEL, Urine Clarity HAZY H, Urine pH 6.5, Ur Specific [employer] 1.010, Urine Protein NEG, Urine Ketones NEG, Urine Nitrite NEG, Urine Bilirubin NEG, Urine Urobilinogen 0.2, Ur Leukocyte Esterase MOD H, Ur Microscopic SEDIMENT EXAMINED, Urine RBC 1-3, Urine WBC 5-10 H, Ur Epithelial Cells FEW, Urine Bacteria FEW H, Urine Hemoglobin TRACE-INTACT, Urine Glucose NEG 01/03/18 0103: Anion Gap 7, Estimated GFR > 60, BUN/Creatinine Ratio 22.9, Glucose 100 H, Lactic Acid 0.8, Calcium 8.6, Total Bilirubin 0.8, Direct Bilirubin 0.1, AST 19, ALT 24, Alkaline Phosphatase 52, Troponin I < 0.01, Total Protein 5.6 L, Albumin 3.1 L, Amylase 36, Lipase 153, PT 29.9 H, INR 2.72 H, APTT 41 H, D- Dimer High Sensitivty < 200, CBC w Diff MAN DIFF ORDERED, RBC 2.32 L, MCV 103.8 H, MCH 35.1 H, MCHC 33.8, RDW 15.1 H, MPV 8.3, Gran % 56.1, Lymphocytes % 32.5, Monocytes % 9.3, Eosinophils % 1.6, Basophils % 0.5, Absolute Granulocytes 2.6, Segmented Neutrophils 61, Band Neutrophils 1, Absolute Lymphocytes 1.5, Lymphocytes 29, Monocytes 8, Absolute Monocytes 0.4, Absolute Eosinophils 0.1, Basophils 1, Absolute Basophils 0, Platelet Estimate ADEQUATE, Normochromic RBCs VERIFIED, Poikilocytosis 1+, Anisocytosis 1+, Macrocytic Cells 1+, Ovalocytes 1+ , Fld Total RBCs Counted 100 Diagnostic Imaging: Viewed by Me: Radiology Read. Discussed w/RAD: Radiology Read. CXR Impression: PATIENT: MALISSA CRUZ PRESENT AGE: 52 PATIENT ACCOUNT NO: [id number] : [birth year] LOCATION: [facility] ORDERING PHYSICIAN: Meño Potts MD SERVICE DATE: 01/03/18 EXAM TYPE: RAD - XRY-PORTABLE CHEST XRAY EXAMINATION: CHEST 1 VIEW CLINICAL INFORMATION: Dyspnea. COMPARISON: None. TECHNIQUE: An AP view of the chest is provided. FINDINGS: The cardiac silhouette is not enlarged. The mediastinal and hilar contours are unremarkable. There are neither pleural effusions nor pneumothoraces. There are no consolidations. The osseous structures are unremarkable. IMPRESSION: No evidence for acute disease. DICTATED BY: Celso Fox MD DATE/TIME DICTATED:01/03/18212 UTILITY TENDER CARDING:LILIAM DATE/TIME TRANSCRIBED:01/03/18212 CONFIDENTIAL, DO NOT COPY WITHOUT APPROPRIATE AUTHORIZATION. <Electronically signed in Other Vendor System> SIGNED BY: Celso Fox MD 01/03/18215 Initial ED EKG: sinus, incomplete lbbb, (Delroy MATAMOROS,Meño Monsivais) Departure Departure Condition: Stable Referrals: Nikhil MATAMOROS,Aaron Holloway (PCP/Family) Departure Forms: Customer Survey General Discharge Information Comments pt is at her baseline o2 sat. She reports that she may have been anxious this AM. Her labs/imaging are stable. will have case management /PT evaluate for home safety. pt to be signed out to dr. louie, 01/03, 7am. (Delroy MATAMOROS,Meño Monsivais) Departure Disposition: HOME OR SELF CARE Clinical Impression Primary Impression: Dyspnea Additional Instructions: returnfor any concerns Prescriptions: Current Visit Scripts Clotrimazole (Lotrimin AF) 1 LONNIE TOP BID #24 GM apply to affected area(s)[id number] (Curt MATAMOROS,Rafael Wei) Critical Care Note Critical Care Note Critical Care Time: non-applicable (Delroy MATAMOROS,Meño Monsivais)
[2018-01-03 01:14] LABS: ABSOLUTE BASOPHIL COUNT 0 /CUMM (0.0-0.2); ABSOLUTE EOSINOPHIL COUNT 0.1 /CUMM (0.0-0.7); ABSOLUTE GRANULOCYTE CT 2.6 /CUMM (1.4-6.5); ABSOLUTE LYMPH COUNT 1.5 /CUMM (1.2-3.4); ABSOLUTE MONOCYTE COUNT 0.4 /CUMM (0.10-0.60); BASOPHIL % 0.5 % (0.0-2.0); EOSINOPHIL % 1.6 % (0-5); GRANULOCYTE % 56.1 % (42.2-75.2); HEMATOCRIT 24.1 % (37-47); MEAN CORPUSCULAR HGB 35.1 PG (27.0-31.0); MEAN CORPUSCULAR HGB CONC 33.8 G/DL (33.0-37.0); MEAN CORPUSCULAR VOLUME 103.8 FL (81.0-99.0); MEAN PLATELET VOLUME 8.3 FL (7.4-10.4); PLATELET COUNT 237 /CUMM (130-400); RBC DISTRIBUTION WIDTH 15.1 % (11.5-14.5); RED BLOOD CELL CT 2.32 /CUMM (4.20-5.40); WHITE BLOOD CELL COUNT 4.6 /CUMM (4.8-10.8)
--- NOTE | 2018-01-03 01:24 | RADIOLOGY REPORT ---
EXAMINATION: CHEST 1 VIEW CLINICAL INFORMATION: Dyspnea. COMPARISON: December 22, 2017. TECHNIQUE: An AP view of the chest is provided. FINDINGS: The cardiac silhouette is not enlarged. The mediastinal and hilar contours are unremarkable. There are neither pleural effusions nor pneumothoraces. There are no consolidations. The osseous structures are stable. IMPRESSION: No evidence for acute disease.
[2018-01-03 02:36] LABS: PT 29.9 SEC (9.4-12.5); PTT 41 SEC (25-37)
--- NOTE | 2018-01-03 05:11 | History & Physical ---
General Information and HPI History of Present Illness: .. Allergies/Medications Allergies: Coded Allergies: NO KNOWN ALLERGIES (07/17/12) Home Med list Albuterol Sulfate (Proair Hfa) 90 MCG HFA.AER.AD 2 PUF INH Q6 PRN BRONCHITIS Albuterol Sulfate 2.5 MG/3 ML (0.083 %) VIAL.NEB 1 Vial INH/ETHAN Q6-PRN PRN pneumonia Amlodipine (Norvasc) 2.5 MG TABLET 1 TAB PO QPM BP (Reported) Amlodipine Besylate (Norvasc) 5 MG TABLET 1 TAB PO QAM HTN (Reported) Atorvastatin Calcium (Lipitor) 10 MG TABLET 1 TAB PO DAILY HLD (Reported) Levothyroxine Sodium (Synthroid) 50 MCG TABLET 1 TAB PO DAILY HYPOTHYROIDISM (Reported) Nadolol (Corgard) 20 MG TABLET 20 MG PO BID HTN (Reported) Rabeprazole Sodium (Aciphex) 20 MG TABLET.DR 1 TAB PO Wednesday GERD (Reported) Warfarin Sodium (Coumadin) 2 MG TABLET 1 TAB PO DAILY AFIB (Reported) Please hold for today and resume once INR is repeated. 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 Exam & Diagnostic Data Last 24 Hrs of Vital Signs/I&O Vital Signs Date Time Temp Pulse Resp B/P B/P Pulse O2 O2 Flow FiO2 Mean Ox Delivery Rate 01/03 0234 100 Nasal 1.0L Cannula 01/03 0108 97 Room Air 01/03 0045 68 20 148/64 100 Nasal Cannula Assessment/Plan As Ranked By This Provider Problem List: 1. COPD (chronic obstructive pulmonary disease) Core Measures/Misc (01/17) Acute Coronary Syndrome ACS Diagnosis: No Congestive Heart Failure Congestive Heart Failure Diagnosis No Cerebrovascular Accident CVA/TIA Diagnosis: No VTE (View Protocol) VTE Risk Factors Acute Medical Illness No Mechanical VTE Prophylaxis d/t LowRisk-No Interven Req'd No VTE Pharm Prophylaxis d/t LowRisk-No Interven Req'd Sepsis (View protocol) Sepsis Present: No If YES complete Sepsis Event Note If YES complete Sepsis Event Note
[2018-01-03] MEDS ORDERED: LOTRIMIN AF12 GM TOP (06:59)
[2018-01-03 08:07] VITALS: BP 143/63
== END 2018-01-03 09:07 ==
LOC: ERH 00:17
PROVIDERS: Pediatrics
DX: R06.00 Dyspnea, unspecified (principal); R05 Cough; F41.9 Anxiety disorder, unspecified; I10 Essential (primary) hypertension; I48.91 Unspecified atrial fibrillation; E03.9 Hypothyroidism, unspecified; D64.9 Anemia, unspecified
CPT/HCPCS: 1263; 71045; 81001; 93005; 93010; 97116-GP; 97161-GP; G8978-GP; G8979-GP; G8980-GP